=== PATIENT | female | born 1965 ===

== ENCOUNTER 2016-08-12 13:36 | Emergency (ER) | payer MEDICAID ==
[2016-08-12 13:36] VITALS: BMI 35.2
[2016-08-12] MEDS ORDERED: Albuterol-Ipratrop 3 mg / 0.5 (3 ml) UD IH STA (14:03)
--- NOTE | 2016-08-12 14:10 | ED PDOC ---
Arrival/HPI - General Chief Complaint: Cough, Cold, Congestion Time Seen by Provider: 08/12/16 13:56 Historian: Patient - History of Present Illness Narrative History of Present Illness (Text): 08/12/16 14:07 Patient is a smoker, complains of 2 day history of dry cough, fever, chills, body aches. Otherwise: (-) chills, (-) chest pain, (-) dyspnea, (-) hemoptysis , (-) upper back pain, (-) travel, (-) recent prolonged immobility. ZACHARY Murguia Past Medical History - Provider Review Nursing Documentation Reviewed: Yes - Past History Past History: No Previous - Infectious Disease Hx of Infectious Diseases: None - Tetanus Immunization Tetanus Immunization: Unknown - Cardiac Hx Cardiac Disorders: No - Pulmonary Hx Pneumonia: Yes Other/Comment: Smoker - Neurological Hx Neurological Disorder: No - HEENT Hx HEENT Disorder: No - Renal Hx Renal Disorder: No - Endocrine/Metabolic Hx Endocrine Disorders: Yes Hx Systemic Lupus Erythematosus: Yes - Hematological/Oncological Hx Blood Disorders: Yes Hx Cancer: Yes (ovarian) - Integumentary Hx Dermatological Disorder: No - Musculoskeletal/Rheumatological Hx Musculoskeletal Disorders: Yes Hx Back Pain: Yes - Gastrointestinal Hx Gastrointestinal Disorders: No Other/Comment: GALLBLADDER SX 10 YRS - Genitourinary/Gynecological Hx Genitourinary Disorders: No Other/Comment: Ovarian CA - Psychiatric Hx Depression: No Hx Substance Use: No - Surgical History Hx Cholecystectomy: Yes Other/Comment: Ovarian Surgery. Bone fusion. Pt with artificial disc. 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 Patient has 4screws/2rods/2plates on back - Anesthesia Hx Anesthesia: No Hx Anesthesia Reactions: No Hx Malignant Hyperthermia: No - Suicidal Assessment Feels Threatened In Home Enviroment: No Family/Social History - Physician Review Nursing Documentation Reviewed: Yes Family/Social History: No Known Family HX Smoking Status: Heavy Smoker > 10 Cigarettes Daily Hx Alcohol Use: No Hx Substance Use: No Hx Substance Use Treatment: No Allergies/Home Meds Allergies/Adverse Reactions: Allergies penicillin V Allergy (Verified 07/20/16 17:46) RASH Review of Systems - Review of Systems Constitutional: Normal, Fatigue, Fevers. absent: Weight Change ENT: Normal. absent: Hearing Changes, Tinnitus Respiratory: Normal, Cough. absent: SOB, Sputum Cardiovascular: Normal. absent: Chest Pain, Palpitations Skin: Normal. absent: Rash, Pruritis, Skin Lesions Physical Exam - Physical Exam Narrative Physical Exam (Text): 08/12/16 14:08 GENERAL APPEARANCE: Patient is awake, alert, oriented x 3, in no acute distress. SKIN: Warm, dry; (-) cyanosis. EYES: (-) conjunctival pallor. ENMT: Mucous membranes moist. Airway patent: (-) stridor. Pharynx: (-) swelling, (-) erythema, (-) exudate. NECK: (-) tenderness, (-) stiffness, (-) lymphadenopathy. CHEST AND RESPIRATORY: (-) rhonchi, (-) rales, (-) wheezes, (-) pleural rub; mild decrease in breath sounds bilaterally. HEART AND CARDIOVASCULAR: (-) irregularity; (-) murmur, (-) gallop. ABDOMEN AND GI: Soft; (-) tenderness. EXTREMITIES: (-) deformity; (-) edema. NEURO AND PSYCH: Mental status as above. Cranial nerves grossly intact; strength symmetric. Vital Signs Temp Pulse Resp BP Pulse Ox 08/12/16 16:01 99.4 F 16 99 08/12/16 15:32 99.4 F 106 H 20 107/76 99 08/12/16 13:45 99.3 F 110 H 18 109/69 98 Medical Decision Making ED Course and Treatment: 08/12/16 14:09 50 yo F smoker, presents to the emergency room complaining of 2 day history of fever, chills, bodyaches, cough. To rule out pneumonia, consider bronchitis versus flu. Chest x-ray ordered. Patient given 1 DuoNeb, motrin po and guaifenesin po. CXR : NAD, as read by PA On reevaluation, patient reports improvement of her cough and her breathing. On exam, lungs are clear to auscultation, no rhonchi, no wheezing, breath sounds are equal bilaterally. Based on history, exam and diagnostic results plan will be for patient follow- up with PMD. Prescription provided. Patient states she fully agrees with and understands discharge instructions. States that she agrees with the plan and disposition. Verbalized and repeated discharge instructions and plan. I have given the patient opportunity to ask any additional questions. Follow up with primary care physician in 1-2 days without fail. Advised to take medication as prescribed, and to take her nebulized treatment every 4-6 hours as needed for cough. Return to the emergency room at any time for any new or worsening symptoms. - RAD Interpretation Radiology Orders: 08/12/16 14:03 CHEST TWO VIEWS (PA/LAT) [RAD] Stat - Medication Orders Current Medication Orders: Discontinued Medications Albuterol/Ipratropium (Duoneb 3 Mg/0.5 Mg (3 Ml) Ud) 3 ml IH STAT STA Stop: 08/12/16 14:04 Last Admin: 08/12/16 14:22 Dose: 3 ML Guaifenesin (Robitussin) 400 mg PO ONCE ONE Stop: 08/12/16 15:31 Last Admin: 08/12/16 15:43 Dose: 400 MG Ibuprofen (Motrin Tab) 600 mg PO STAT STA Stop: 08/12/16 15:31 Last Admin: 08/12/16 15:43 Dose: 600 MG MAR Pain/Vitals Document 08/12/16 15:43 [email or web address] (Rec: 08/12/16 15:43 [email or web address] Pain Reassessment Is This A Pain ReAssessment? No Sleep Is patient sleeping during reassessment? No Presence of Pain Presence of Pain Yes Pain Scale Used Pain Scale Used Numeric Location Pain Location Body Vocational Ed Instructor Description Constant Intensity 4 Scale Used Numeric Pain Behavior Facial Grimacing Aggravating Factors Changing Position Aggravating Factors Changing Position - PA / FUEL MANAGER / Resident Statement MD/DO has reviewed & agrees with the documentation as recorded. Disposition/Present on Arrival - Present on Arrival Any Indicators Present on Arrival: No History of DVT/PE: No History of Uncontrolled Diabetes: No Urinary Catheter: No History of Decub. Ulcer: No History Surgical Site Infection Following: None - Disposition Have Diagnosis and Disposition been Completed?: Yes Diagnosis: Cough, Viral respiratory illness Disposition: HOME/ ROUTINE Disposition Time: 15:30 Patient Plan: Discharge Patient Problems: Current Active Problems Problem Status Diagnosed Leukocytosis Acute Pharyngitis Acute Throat pain Acute Trismus Acute Condition: GOOD Discharge Instructions (ExitCare): Influenza (ED), Viral Syndrome (ED) Print Language: THAI Additional Instructions: Thank you for letting us take care of you today. You were treated for cough, viral illness, consider flu. The emergency medical care you received today was directed at your acute symptoms. If you were prescribed any medication, please fill it and take as directed. It may take several days for your symptoms to resolve. Return to the Emergency Department if your symptoms worsen, do not improve, or if you have any other problems. Please contact your doctor in 2 days for re-evaluation and follow up. Bring any paperwork you were given at discharge with you along with any medications you are taking to your follow up visit. Our treatment cannot replace ongoing medical care by a primary care provider (PCP) outside of the emergency department. Thank you for allowing the [facility] team to be part of your care today. Prescriptions: Guaifenesin [Cough Control] 400 mg PO Q6 #400 liquid Ibuprofen [Motrin] 600 mg PO Q6H #20 tab Oseltamivir Phosphate [Tamiflu] 75 mg PO BID #10 capsule Referrals: Catia Murguia MD [Primary Care Provider] - Follow up with primary
[2016-08-12] MEDS ORDERED: guaiFENesin 200 mg/10 ml Syrup UD PO ONE (15:30)
--- NOTE | 2016-08-12 15:31 | RAD ---
HISTORY: cough COMPARISON: Chest x-ray performed 12/03/15 TECHNIQUE: Chest PA and lateral FINDINGS: Examination limited by habitus and hypoinflation. LUNGS: No focal consolidation. Please note that chest x-ray has limited sensitivity for the detection of pulmonary masses. PLEURA: No significant pleural effusion identified. No definite pneumothorax . CARDIOVASCULAR: Heart size appears within normal limits. OSSEOUS STRUCTURES: Degenerative changes of the spine. VISUALIZED UPPER ABDOMEN: Unremarkable. OTHER FINDINGS: None. IMPRESSION: No focal consolidation, significant pleural effusion, or definite pneumothorax identified.
[2016-08-12 15:32] VITALS: BP 107/76; PULSE 106; TEMP 99.4; O2SAT 99
[2016-08-12 16:02] VITALS: RESP 16
== END 2016-08-12 16:02 | disposition home or self-care (01) ==
LOC: ED 13:36
DX: B34.9 Viral infection, unspecified (principal); R05 Cough; Z87.01 Personal history of pneumonia (recurrent)

== ENCOUNTER 2016-10-19 13:25 | Inpatient (IN) | payer MEDICAID ==
--- NOTE | 2016-10-19 13:43 | EDPD ---
HPI Stroke - General Time Seen by Provider: 10/19/16 13:38 Historian: Patient - History of Present Illness Narrative History of Present Illness (Free Text): 10/19/16 13:24 A 51 year old female presents to the emergency department complaining of slurred speech and left sided weakness. Patient report last night of 2099 she went to bed with a headache. She states she woke up this morning with the same headache along with heaviness to the left side of the face, slurred speech and weakness/numbness to the left upper extremity. Patient says she feels like she need to cough up something but is unable too. Patient notes some left eye blurring but denies any fever, cough, nausea, vomiting or any other complaints at this time. PMD: Dr. Murguia Date:: 10/19/16 rTPA Inclusion/Exclusion - Refusal of Treatment Patient Refused Treatment: No - Inclusion Criteria for Altepase Patient is 18 years or Older: Yes The Clinical Diagnosis of Ischemic Stroke That is Causing a Potentially Disabling Neurological Deficit: Yes Time of Onset is Well Established to be Less Than 270 Minute Before Treatment Would Begin: No Risk/Benefit Discussed With Patient/Family Member Present: Yes Past Medical History - Provider Review Nursing Documentation Reviewed: Yes - Past History Past History: No Previous - Infectious Disease Hx of Infectious Diseases: None - Tetanus Immunization Tetanus Immunization: Unknown - Cardiac Hx Cardiac Disorders: No - Pulmonary Hx Pneumonia: Yes Other/Comment: Smoker - Neurological Hx Neurological Disorder: No - HEENT Hx HEENT Disorder: No - Renal Hx Renal Disorder: No - Endocrine/Metabolic Hx Endocrine Disorders: Yes Hx Systemic Lupus Erythematosus: Yes - Hematological/Oncological Hx Blood Disorders: Yes Hx Cancer: Yes (ovarian) - Integumentary Hx Dermatological Disorder: No - Musculoskeletal/Rheumatological Hx Musculoskeletal Disorders: Yes Hx Back Pain: Yes - Gastrointestinal Hx Gastrointestinal Disorders: No Other/Comment: GALLBLADDER SX 10 YRS - Genitourinary/Gynecological Hx Genitourinary Disorders: No Other/Comment: Ovarian CA - Psychiatric Hx Depression: No Hx Substance Use: No - Surgical History Hx Cholecystectomy: Yes Other/Comment: Ovarian Surgery. Bone fusion. Pt with artificial disc. 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 Patient has 4screws/2rods/2plates on back - Anesthesia Hx Anesthesia: No Hx Anesthesia Reactions: No Hx Malignant Hyperthermia: No - Suicidal Assessment Feels Threatened In Home Enviroment: No Family/Social History - Family/Social History Family History: Non-Contributory Allergies/Home Meds Allergies/Adverse Reactions: Allergies penicillin V Allergy (Verified 10/19/16 14:05) RASH Home Medications: Home Meds Medication Instructions Recorded Confirmed oxyCODONE/Acetaminophen [Percocet 1 tab PO PRN PRN 10/19/16 10/19/16 5/325 mg Tab] Review of Systems - Physician Review All systems were reviewed & negative as marked: Yes - Review of Systems Constitutional: absent: Fevers Eyes: Vision Changes Respiratory: absent: SOB, Cough Cardiovascular: absent: Chest Pain Neurological: Headache, Focal Weakness, Speech Changes ED Stroke Physical Exam Vital Signs Reviewed: Yes Temperature: Afebrile Blood Pressure: Normal Pulse: Regular Respiratory Rate: Normal Appearance: Positive for: Well-Appearing, Non-Toxic, Comfortable Pain Distress: None Mental Status: Positive for: Alert and Oriented X 3 - Systems Exam Head: Present: Atraumatic, Normocephalic, Other (stye to the left eye with no tenderness or discharge) Pupils: Present: PERRL Extroacular Muscles: Present: EOMI Conjunctiva: Present: Normal Mouth: Present: Moist Mucous Membranes Neck: Present: Normal Range of Motion Respiratory/Chest: Present: Clear to Auscultation, Good Air Exchange. No: Respiratory Distress, Accessory Muscle Use Cardiovascular: Present: Regular Rate and Rhythm, Normal S1, S2. No: Murmurs Abdomen: Present: Normal Bowel Sounds. No: Tenderness, Distention, Peritoneal Signs Upper Extremity: Present: Normal Inspection. No: Cyanosis, Edema Lower Extremity: Present: Normal Inspection. No: Edema Neurologic: Present: GCS=15, CN II-XII Intact, Motor Func Grossly Intact, Normal Cerebellar Funct, Norm Deep Tendon Reflexes, Memory Normal, Pronator Drift (left upper and lower. 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 No: Speech Normal ( slurred speech), Normal Sensory Function (left sided numbness), Dysmetric Finger to Nose Skin: Present: Warm, Dry, Normal Color. No: Rashes Psychiatric: Present: Alert, Oriented x 3, Normal Insight, Normal Concentration Medical Decision Making ED Course and Treatment: 10/19/16 13:24 Impression: A 51 year old female with headache, left sided weakness/numbness, and slurred speech. Differential Diagnosis include but are not limited to: CVA Plan: -- EKG -- Head CT -- Chest X-ray -- Labs -- Reassess and disposition Prior Visits: Notes and results from previous visits were reviewed. The david last presented to the emergency department on 08/12/16 for evaluation of a dry cough with fever, chills and body aches. Progress Notes: EKG: Ordered, reviewed, and independently interpreted the EKG. Rate : 81 BPM Rhythm : NSR Interpretation : No ST-segment elevations or depressions, no T-wave inversions, normal intervals. Code stroke called by Triage nurse upon arrival of the patient. Case discussed with Dr. Ingrid Hopkins, who is aware and agrees with the plan. 10/19/16 13:[address]: Creator : Andrés Bella MD COMPARISON: 05/27/2015 FINDINGS: HEMORRHAGE: No intracranial hemorrhage. BRAIN: No mass effect or edema. No atrophy or chronic microvascular ischemic changes. VENTRICLES: Unremarkable. No hydrocephalus. CALVARIUM: Unremarkable. PARANASAL SINUSES: Unremarkable as visualized. No significant inflammatory changes. MASTOID AIR CELLS: Unremarkable as visualized. No inflammatory changes. OTHER FINDINGS: None. IMPRESSION: Normal CT of the Head. 10/19/16 14:25 Chest X-ray: Creator : Andrés Bella MD COMPARISON: 08/12/2016 FINDINGS: LUNGS: Clear. PLEURA: No pneumothorax or pleural fluid seen. CARDIOVASCULAR: Normal. OSSEOUS STRUCTURES: No significant abnormalities. VISUALIZED UPPER ABDOMEN: Normal. OTHER FINDINGS: None. IMPRESSION: No active disease. 10/19/16 15:33 Case discussed at length with patient and patient's mom. Patient did not want to stay in hospital but now is agreeing to stay. She is also now agreeing to Aspirin OK. I discussed case with Dr. Loredo who will admit this patient. - Critical Care Critical Care Minutes: 30 minutes - Lab Interpretations I have reviewed the lab results: Yes - RAD Interpretation Radiology Orders: 10/19/16 13:40 HEAD W/O (CODE STROKE) [CT] Stat 10/19/16 13:41 CHEST PORTABLE [RAD] Stat - Scribe Statement The provider has reviewed the documentation as recorded by the Mioibjerad Russell Provider Scribe Attestation: All medical record entries made by the Scribe were at my direction and personally dictated by me. I have reviewed the chart and agree that the record accurately reflects my personal performance of the history, physical exam, medical decision making, and the department course for this patient. I have also personally directed, reviewed, and agree with the discharge instructions and disposition. NIHSS Scale ([place]) Time Performed: 13:38 - How Severe is the Stoke Baseline Level of Consciousness: 0=Alert LOC to Questions: 0=Both comments correct LOC to commands: 0=Obeys both correctly Best Gaze: 0=Normal Visual: 1=Partial hemianopia Facial: 2=Partial (lower face paralysis) Motor Arm - Left: 1=Drift noted before 10 sec Motor Arm - Right: 0=No drift Motor Leg - Left: 1=Drift before 5 sec Motor Leg - Right: 0=No drift Limb Ataxia: 1=Present Upper or Lower Sensory: 1=Mild to moderate loss Best Language: 0=No aphasia Dysarthia: 1=Mild to moderate slurring Extinction & Inattention (Neglect): 0=Normal, no object Score: 8 Risk Level: Mod Stroke Risk Disposition/Present on Arrival - Present on Arrival Any Indicators Present on Arrival: No History of DVT/PE: No History of Uncontrolled Diabetes: No Urinary Catheter: No History Surgical Site Infection Following: None - Disposition Have Diagnosis and Disposition been Completed?: Yes Diagnosis: CVA (cerebral vascular accident) Disposition: HOSPITALIZED Disposition Time: 15:34 Patient Plan: Admission Condition: FAIR Referrals: Catia Murguia MD [Primary Care Provider] - Follow up with primary
--- NOTE | 2016-10-19 13:55 | CT ---
PROCEDURE: CT HEAD WITHOUT CONTRAST. HISTORY: slurred speech; left sided weakness COMPARISON: 05/27/2015 TECHNIQUE: Axial computed tomography images were obtained through the head/brain without intravenous contrast. Radiation dose: Total exam DLP = 688 mGy-cm. This CT exam was performed using one or more of the following dose reduction techniques: Automated exposure control, adjustment of the mA and/or kV according to patient size, and/or use of iterative reconstruction technique. FINDINGS: HEMORRHAGE: No intracranial hemorrhage. BRAIN: No mass effect or edema. No atrophy or chronic microvascular ischemic changes. VENTRICLES: Unremarkable. No hydrocephalus. CALVARIUM: Unremarkable. PARANASAL SINUSES: Unremarkable as visualized. No significant inflammatory changes. MASTOID AIR CELLS: Unremarkable as visualized. No inflammatory changes. OTHER FINDINGS: None. IMPRESSION: Normal CT of the Head.
--- NOTE | 2016-10-19 14:25 | RAD ---
PROCEDURE: CHEST RADIOGRAPH, 1 VIEW HISTORY: code stroke COMPARISON: 08/12/2016 FINDINGS: LUNGS: Clear. PLEURA: No pneumothorax or pleural fluid seen. CARDIOVASCULAR: Normal. OSSEOUS STRUCTURES: No significant abnormalities. VISUALIZED UPPER ABDOMEN: Normal. OTHER FINDINGS: None. IMPRESSION: No active disease.
[2016-10-19 14:41] LABS: ADD MANUAL DIFF? NO
[2016-10-19 14:44] LABS: BASO # 0.02 K/mm3 (0.0-2.0); BASO % 0.2 % (0.0-3.0); EOS # 0.1 (0.0-0.7); EOS % 0.7 % (1.5-5.0); GRAN # 8.41 (1.4-6.5); GRAN % 70.6 % (50.0-68.0); HEMATOCRIT 37.9 % (36.0-48.0); LYMPH # 2.7 (1.2-3.4); MEAN CELL VOLUME 89.4 fL (80.0-105.0); MEAN CORPUSCULAR HEMOGLOBIN 30.9 pg (25.0-35.0); MEAN CORPUSCULAR HGB CONC 34.6 g/dl (31.0-37.0); MONO # 0.7 (0.1-0.6); MONO % 5.5 % (1.0-6.0); PLATELET COUNT 239 10^3/uL (120.0-450.0); RED CELL DISTRIBUTION WIDTH 15.1 % (11.5-14.5); WHITE BLOOD COUNT 11.9 10^3/ul (4.5-11.0)
[2016-10-19 14:56] LABS: INR 1.03 (0.93-1.08)
[2016-10-19 14:57] LABS: ALB/GLOB RATIO 1.2 (1.1-1.8); ALKALINE PHOSPHATASE 114 U/L (38-133); ALT/SGPT 86 U/L (7-56); AST/SGOT 39 U/L (15-39); BILIRUBIN,TOTAL 0.4 mg/dL (0.2-1.3); BLOOD UREA NITROGEN 14 mg/dL (7-21); CALCIUM 9.9 mg/dL (8.4-10.5); CARBON DIOXIDE 20 mmol/L (21-33); CHOLESTEROL 180 mg/dL (130-200); GFR AFRICAN-AMERICAN > 60; GLUCOSE,RANDOM 86 mg/dL (70-110); POTASSIUM 3.6 mmol/L (3.6-5.0); SODIUM 137 mmol/L (132-148); TOTAL PROTEIN 7.7 g/dL (5.8-8.3)
[2016-10-19 15:08] LABS: CHLORIDE 107 mmol/L (98-107)
[2016-10-19 15:11] LABS: TROPONIN I < 0.01 ng/mL
[2016-10-19] MEDS ORDERED: Morphine 2 mg/ml ISec IVP STA (15:34)
[2016-10-19] MEDS: Sodium Chloride 0.9% 1,000 ML IV SCH (16:27)
--- NOTE | 2016-10-19 16:32 | CP.PCM.HP ---
<Margoth Omer - Last Filed: 10/19/16 16:50> History of Present Illness - History of Present Illness History of Present Illness: 51 F with PMHx of ovarian cancer s/p radiation, SLE, S1 tumor presenting with complains of headache x2 days and left sided numbness and weakness x1day. Pt states that roughly 2 days ago, pt began experiencing a diffuse headache, slightly worse on the left side for 2 days. Pt denied any trauma to the head. Pt denied any triggers that spurred the headache. Pt then began experiencing worsening symptoms today when pt woke up with left sided weakness and numbness. Her entire left side felt weak at which point pt called her mother and was assisted to [facility]. Pt was seen and examined at bedside. Pt has complaints of headache, diffues left-sided weakness, numbness, and pain. Pt also has complaints of left eye blurry vision and absent left lateral vision. Pt denied fever, chills, chest pains, sob, abdominal pain, n/v/d/c. PMHx: as above PSHx: Lumbar fusion, left ovarian ca removal, cholecystectomy, SHx: + tobacco 1/2 ppd, denied etoh, denied illicit drugs Famhx: gma: htn stroke, mother CLL Meds: Percocet and flexeril Allergies: PCN PMD: Leonides Murguia Present on Admission - Present on Admission Any Indicators Present on Admission: No Review of Systems - Review of Systems Review of Systems: as per HPI otherwise negative Past Patient History - Infectious Disease Hx of Infectious Diseases: None - Tetanus Immunizations Tetanus Immunization: Unknown - Past Social History Smoking Status: Heavy Smoker > 10 Cigarettes Daily - CARDIAC Hx Cardiac Disorders: No - PULMONARY Hx Pneumonia: Yes Other/Comment: Smoker - NEUROLOGICAL Hx Neurological Disorder: No - HEENT Hx HEENT Problems: No - RENAL Hx Chronic Kidney Disease: No - ENDOCRINE/METABOLIC Hx Endocrine Disorders: Yes Hx Systemic Lupus Erythematosus: Yes - HEMATOLOGICAL/ONCOLOGICAL Hx Blood Disorders: Yes Hx Cancer: Yes (ovarian) - INTEGUMENTARY Hx Dermatological Problems: No - MUSCULOSKELETAL/RHEUMATOLOGICAL Hx Musculoskeletal Disorders: Yes Hx Back Pain: Yes - GASTROINTESTINAL Hx Gastrointestinal Disorders: No Other/Comment: GALLBLADDER SX 10 YRS - GENITOURINARY/GYNECOLOGICAL Hx Genitourinary Disorders: No Other/Comment: Ovarian CA - PSYCHIATRIC Hx Depression: No Hx Substance Use: No - SURGICAL HISTORY Hx Cholecystectomy: Yes Other/Comment: Ovarian Surgery. Bone fusion. Pt with artificial disc. 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 Patient has 4screws/2rods/2plates on back - ANESTHESIA Hx Anesthesia: No Hx Anesthesia Reactions: No Hx Malignant Hyperthermia: No Meds Allergies/Adverse Reactions: Allergies Allergy/AdvReac Type Severity Reaction Status Date / Time penicillin V Allergy RASH Verified 10/19/16 20:11 Physical Exam - Constitutional Appears: No Acute Distress - Head Exam Head Exam: ATRAUMATIC, NORMAL INSPECTION, NORMOCEPHALIC - Eye Exam Eye Exam: EOMI, Normal appearance, PERRL Pupil Exam: NORMAL ACCOMODATION, PERRL Additional comments: Diminished Left lateral gaze - ENT Exam ENT Exam: Mucous Membranes Moist, Normal Exam - Neck Exam Neck exam: Positive for: Normal Inspection - Respiratory Exam Respiratory Exam: Clear to Auscultation Bilateral, NORMAL BREATHING PATTERN - Cardiovascular Exam Cardiovascular Exam: REGULAR RHYTHM - GI/Abdominal Exam GI & Abdominal Exam: Normal Bowel Sounds, Soft. absent: Tenderness - Extremities Exam Extremities exam: Positive for: normal inspection - Back Exam Back exam: NORMAL INSPECTION - Neurological Exam Neurological exam: Alert, Motor Sensory Deficit, Oriented x3 - Expanded Neurological Exam Expanded Cranial nerves: EOM's Intact: Normal, Facial Sensation: Abnormal Left, Nystagmus : Normal, Tongue Deviation: Normal Upper motor neuron: Pronator Drift: Abnormal Left Sensory exam: Lower Extremity 2 Point Discrimination: Abnormal Left, Lower Extremity Light Touch: Abnormal Left, Upper Extremity 2 Point Discrimination: Abnormal Left, Upper Extremity Light Touch: Abnormal Left Neuro motor strength exam: Left Upper Extremity: 3, Right Upper Extremity: 5, Left Lower Extremity: 2/1, Right Lower Extremity: 3 Coma Scale Eye Opening: SPONTANEOUS Coma Scale Motor Response: OBEYS COMMANDS Coma Scale Verbal: Oriented Coma Scale Total: 15 - Psychiatric Exam Psychiatric exam: Normal Affect, Normal Mood - Skin Skin Exam: Dry, Intact, Normal Color, Warm Results - Vital Signs Recent Vital Signs: Last Vital Signs Temp 98.1 F 10/19/16 13:58 Pulse 79 10/19/16 16:00 Resp 18 10/19/16 16:00 BP 117/82 10/19/16 16:00 Pulse Ox 100 10/19/16 16:00 - Labs Result Diagrams: 10/19/16 14:30 10/19/16 14:30 Labs: Laboratory Results - last 24 hr 10/19/16 10/19/16 10/19/16 13:37 14:30 14:30 WBC 11.9 H RBC 4.24 Hgb 13.1 Hct 37.9 MCV 89.4 MCH 30.9 MCHC 34.6 RDW 15.1 H Plt Count 239 MPV 10.0 Gran % 70.6 H Lymph % (Auto) 23.0 [place] % (Auto) 5.5 Eos % (Auto) 0.7 L Baso % (Auto) 0.2 Gran # 8.41 H Lymph # 2.7 [place] # 0.7 H Eos # 0.1 Baso # 0.02 PT 11.1 INR 1.03 APTT 31.0 H Sodium Potassium Chloride Carbon Dioxide Anion Gap BUN Creatinine Est GFR ( Amer) Est GFR (Non-Af Amer) POC Glucose (mg/dL) 79 Random Glucose Calcium Total Bilirubin AST ALT Alkaline Phosphatase Troponin I Total Protein Albumin Globulin Albumin/Globulin Ratio Triglycerides Cholesterol LDL Cholesterol Direct HDL Cholesterol BBK History Checked 10/19/16 10/19/16 14:30 15:15 WBC RBC Hgb Hct MCV MCH MCHC RDW Plt Count MPV Gran % Lymph % (Auto) [place] % (Auto) Eos % (Auto) Baso % (Auto) Gran # Lymph # [place] # Eos # Baso # PT INR APTT Sodium 137 Potassium 3.6 Chloride 107 Carbon Dioxide 20 L Anion Gap 14 BUN 14 Creatinine 0.8 Est GFR ( Amer) > 60 Est GFR (Non-Af Amer) > 60 POC Glucose (mg/dL) Random Glucose 86 Calcium 9.9 Total Bilirubin 0.4 AST 39 ALT 86 H Alkaline Phosphatase 114 Troponin I < 0.01 Total Protein 7.7 Albumin 4.2 Globulin 3.5 Albumin/Globulin Ratio 1.2 Triglycerides 203 H Cholesterol 180 LDL Cholesterol Direct 121 HDL Cholesterol 40 BBK History Checked Patient has bt Assessment & Plan - Assessment and Plan (Free Text) Assessment: 51 F with PMHx of ovarian cancer s/p radiation, SLE, S1 tumor presenting with complains of headache x2 days and left sided numbness and weakness x1day. Pt states that roughly 2 days ago, pt began experiencing a diffuse headache, slightly worse on the left side for 2 days. Pt admitted to r/o CVA. 1. Left sided weakness/numbness - R/o CVA - CTH negative - FU CTA Head and neck - Asa RC - Lipitor once pass swallow study - No anticoagulation - SCDs - Neurology consulted, Dr. Edin Hopkins - avoid anti-htn, continue to monitor - Swallow study 2. Leukocytosis - WBC mildly elevated - fu cx - CXR without active disease - VSS 3. Headache/ left sided pain/ LBP - Hx of lumbar fusion - morphine 1q4 prn - can resume home meds if pass swallow study 4. Tobacco abuse - conuselled pt on tobacco cessation - nicotine patch offered DVT ppx SCDs Seen reviewed and discussed with attending <Jaya DUNN,Artis - Last Filed: 10/20/16 17:06> Results - Vital Signs Recent Vital Signs: Last Vital Signs Temp 98.5 F 10/20/16 12:00 Pulse 66 10/20/16 12:00 Resp 20 10/20/16 12:00 BP 98/78 L 10/20/16 12:00 Pulse Ox 100 10/19/16 17:00 - Labs Result Diagrams: 10/20/16 06:45 10/20/16 06:45 Labs: Laboratory Results - last 24 hr 10/19/16 10/20/16 10/20/16 16:42 06:30 06:45 WBC 8.7 D RBC 4.05 Hgb 12.2 Hct 36.8 MCV 90.9 MCH 30.1 MCHC 33.2 RDW 15.5 H Plt Count 226 MPV 10.4 Gran % 62.6 Lymph % (Auto) 29.0 [place] % (Auto) 6.8 H Eos % (Auto) 1.5 Baso % (Auto) 0.1 Gran # 5.41 Lymph # 2.5 [place] # 0.6 Eos # 0.1 Baso # 0.01 ESR Sodium Potassium Chloride Carbon Dioxide Anion Gap BUN Creatinine Est GFR ( Amer) Est GFR (Non-Af Amer) Random Glucose Calcium Total Bilirubin AST ALT Alkaline Phosphatase Total Protein Albumin Globulin Albumin/Globulin Ratio Triglycerides 121 Cholesterol 156 LDL Cholesterol Direct 99 HDL Cholesterol 32 Urine Color Yellow Urine Appearance Sl cloudy Urine pH 6.0 Ur Specific [place] 1.020 Urine Protein Trace H Urine Glucose (UA) Negative Urine Ketones Negative Urine Blood Moderate H Urine Nitrate Positive H Urine Bilirubin Negative Urine Urobilinogen 0.2 Ur Leukocyte Esterase Small H Urine RBC 10 - 15 Urine WBC 5 - 10 Ur Epithelial Cells 10 - 12 Urine Bacteria Many 10/20/16 10/20/16 06:45 09:00 WBC RBC Hgb Hct MCV MCH MCHC RDW Plt Count MPV Gran % Lymph % (Auto) [place] % (Auto) Eos % (Auto) Baso % (Auto) Gran # Lymph # [place] # Eos # Baso # ESR 20 Sodium 137 Potassium 3.9 Chloride 110 H Carbon Dioxide 19 L Anion Gap 12 BUN 11 Creatinine 0.8 Est GFR ( Amer) > 60 Est GFR (Non-Af Amer) > 60 Random Glucose 94 Calcium 9.1 Total Bilirubin 0.5 AST 41 H ALT 78 H Alkaline Phosphatase 97 Total Protein 6.9 Albumin 3.6 Globulin 3.3 Albumin/Globulin Ratio 1.1 Triglycerides Cholesterol LDL Cholesterol Direct HDL Cholesterol Urine Color Urine Appearance Urine pH Ur Specific [place] Urine Protein Urine Glucose (UA) Urine Ketones Urine Blood Urine Nitrate Urine Bilirubin Urine Urobilinogen Ur Leukocyte Esterase Urine RBC Urine WBC Ur Epithelial Cells Urine Bacteria Attending/Attestation - Attestation I have personally seen and examined this patient.: Yes I have fully participated in the care of the patient.: Yes I have reviewed all pertinent clinical information: Yes Notes (Text): Patient was seen and examined with medical examiner .Agreed with resident assessment and plan. 51 F with PMH of ovarian cancer , SLE ?, S1 tumor, SP back surgery presenting with complains of headache started 2 days back , followed by left sided numbness and weakness of left upper and lower extremities, more in arm than leg , also gave history of facial dropping and visual lose in left eye, CT head is negative.Patient symptoms are suggestive of CVA, does has focal motor weakness in left upper extremity and decrease sensation on left upper and lower extremity.Patient will be admitted to the hospital, will monitor Neuro check, will get CT angiography of head and neck, will get 2D echo and neurology evaluation. Management plan was discussed in detail with patient Education was provided.
[2016-10-19] MEDS: Morphine 2 mg/ml ISec IVP PRN ×2 (17:09→21:06)
[2016-10-19 17:25] LABS: URINE BILIRUBIN NEGATIVE (NEGATIVE); URINE BLOOD MODERATE (NEGATIVE); URINE GLUCOSE (UA) NEGATIVE (NEGATIVE); URINE KETONE NEGATIVE (NEGATIVE); URINE LEUKOCYTE ESTERASE SMALL Leu/uL (NEGATIVE); URINE PROTEIN TRACE mg/dL (<30 mg/dL); URINE UROBILINOGEN 0.2 E.U./dL (<1 E.U./dL)
[2016-10-19 17:31] LABS: URINE APPEARANCE SL CLOUDY (CLEAR); URINE COLOR YELLOW (YELLOW)
[2016-10-19 17:45] LABS: URINE BACTERIA MANY (NEG)
--- NOTE | 2016-10-19 18:31 | CT ---
PROCEDURE: CT Angiography of the neck with contrast HISTORY: ?stroke COMPARISON: None available. TECHNIQUE: Contiguous axial images of the neck were obtained from the level of the skull-base to the superior mediastinum in the arteriographic phase of enhancement. Coronal and sagittal reformats or also generated. IV contrast dose: 147 mL of Omnipaque 350 Radiation Dose - DLP: 528.56 mGy-cm This CT exam was performed using one or more of the following dose reduction techniques: Automated exposure control, adjustment of the mA and/or kV according to patient size, and/or use of iterative reconstruction technique. FINDINGS: RIGHT CAROTID ARTERIES: Common Carotid Artery: Normal. Carotid Bifurcation: Normal. Internal Carotid Artery:Normal. External Carotid Artery (proximal branches): Normal. LEFT CAROTID ARTERIES: Common Carotid Artery: Normal. Carotid Bifurcation: Normal. Internal Carotid Artery:Normal. External Carotid Artery (proximal branches): Normal. VERTEBRAL ARTERIES: Right Vertebral Artery: Normal. Left Vertebral Artery: Normal. OTHER FINDINGS: None. IMPRESSION: No evidence of focal stenosis or occlusion in the carotid arteries at the neck. The vertebral arteries and the basilar artery are patent.
--- NOTE | 2016-10-19 19:12 | CON ---
DATE: 10/19/2016 HISTORY OF PRESENT ILLNESS: This is a 51-year-old female who came to the hospital with slurring of s peech and also with headache and woke up in the morning with the same headache and heaviness to the l eft side of the face. She also noted some blurring of vision in the left eye. Denies any nausea, vo miting. PAST MEDICAL HISTORY: As above. PAST SURGICAL HISTORY: Cholecystectomy. ALLERGIES: PENICILLIN. HOME MEDICATIONS: Percocet. REVIEW OF SYSTEMS: A 10-point review of system was negative. PHYSICAL EXAMINATION: HEENT: Normocephalic, atraumatic. NECK: Supple. NEUROLOGIC: Alert, awake, orientated x 3. No aphasia. Cranial nerves II through XII were tested. Pupils reactive. EOM intact. Visual marroquin full. No facial asymmetry. Mild left-sided weakness wa s noted. Speech is better on examination. IMPRESSION: Possibly transient ischemic attack in the right hemisphere. CAT scan of the head was ne gative and CT angio was also negative. PLAN: Continue present management. Will follow up and do carotid Doppler. Edin Hopkins MD cc: [id number] TT: 10/19/2016 19:11:30 Confirmation # [id number] Dictation # [id number] alexa
[2016-10-19 21:41] VITALS: BMI 42.7
[2016-10-19] MEDS ORDERED: Pneumococcal 23-Valent Vaccine IM ONE (21:41)
[2016-10-20] MEDS: Morphine 2 mg/ml ISec IVP PRN ×2 (01:43→05:43)
[2016-10-20] MEDS: Sodium Chloride 0.9% 1,000 ML IV SCH ×2 (04:24→13:14)
[2016-10-20 07:01] LABS: CHOLESTEROL 156 mg/dL (130-200)
[2016-10-20 07:32] LABS: ADD MANUAL DIFF? NO
[2016-10-20 07:35] LABS: BASO # 0.01 K/mm3 (0.0-2.0); BASO % 0.1 % (0.0-3.0); EOS # 0.1 (0.0-0.7); EOS % 1.5 % (1.5-5.0); GRAN # 5.41 (1.4-6.5); GRAN % 62.6 % (50.0-68.0); HEMATOCRIT 36.8 % (36.0-48.0); LYMPH # 2.5 (1.2-3.4); MEAN CELL VOLUME 90.9 fL (80.0-105.0); MEAN CORPUSCULAR HEMOGLOBIN 30.1 pg (25.0-35.0); MEAN CORPUSCULAR HGB CONC 33.2 g/dl (31.0-37.0); MEAN PLATELET VOLUME 10.4 fl (7.0-11.0); MONO # 0.6 (0.1-0.6); MONO % 6.8 % (1.0-6.0); PLATELET COUNT 226 10^3/uL (120.0-450.0); RED CELL DISTRIBUTION WIDTH 15.5 % (11.5-14.5); WHITE BLOOD COUNT 8.7 10^3/ul (4.5-11.0)
[2016-10-20 07:43] LABS: ALB/GLOB RATIO 1.1 (1.1-1.8); ALKALINE PHOSPHATASE 97 U/L (38-133); ALT/SGPT 78 U/L (7-56); AST/SGOT 41 U/L (15-39); BILIRUBIN,TOTAL 0.5 mg/dL (0.2-1.3); BLOOD UREA NITROGEN 11 mg/dL (7-21); CALCIUM 9.1 mg/dL (8.4-10.5); CARBON DIOXIDE 19 mmol/L (21-33); CHLORIDE 110 mmol/L (98-107); GFR AFRICAN-AMERICAN > 60; GLUCOSE,RANDOM 94 mg/dL (70-110); POTASSIUM 3.9 mmol/L (3.6-5.0); SODIUM 137 mmol/L (132-148); TOTAL PROTEIN 6.9 g/dL (5.8-8.3)
[2016-10-20] MEDS ORDERED: Gadodiamide 287 MG/ML VIAL (20ML) IV ONE (08:26)
--- NOTE | 2016-10-20 09:24 | US ---
PROCEDURE: Bilateral carotid artery duplex ultrasound HISTORY: Carotid stenosis PHYSICIAN(S): Alexx Manzano MD. TECHNIQUE: Duplex sonography and color-flow Doppler were used to evaluate the carotid bifurcations and limited segments of the vertebral arteries bilaterally. FINDINGS: There is mild smooth heterogeneous plaque noted at the carotid bifurcations bilaterally. The peak systolic velocity in the proximal right internal carotid artery is 79 cm/sec. This corresponds to a 0-19 percent proximal right ICA stenosis. Normal systolic velocities are noted in the proximal right external carotid artery. There is antegrade flow in the right vertebral artery. The peak systolic velocity in the proximal left internal carotid artery is 84 cm/sec. This corresponds to a 0-19 percent proximal left ICA stenosis. Normal systolic velocities are noted in the proximal left external carotid artery. There is antegrade flow in the left vertebral artery. IMPRESSION: 1. Bilateral 0-19 percent proximal ICA stenoses. 2. Antegrade flow in both vertebral arteries.
--- NOTE | 2016-10-20 10:11 | MRI ---
PROCEDURE: MRI BRAIN WITH AND WITHOUT CONTRAST HISTORY: cva COMPARISON: None. TECHNIQUE: Multiplanar, multisequence MR images of the brain were obtained with and without intravenous contrast enhancement. 20 cc of Omniscan FINDINGS: HEMORRHAGE: None DWI: No evidence of an acute or early subacute infarction. BRAIN PARENCHYMA: No mass,mass effect or edema. No atrophy or chronic microvascular ischemic changes. ENHANCEMENT: No abnormal intracranial enhancement. VENTRICLES: Unremarkable. No hydrocephalus. CRANIUM: Unremarkable. ORBITS: Grossly unremarkable. PARANASAL SINUSES/MASTOIDS: Clear VASCULAR SYSTEM: Skull base flow voids intact. OTHER FINDINGS: There is expansion of the sella consistent with a partially empty sella. This is a normal anatomic variant.. IMPRESSION: No acute findings
[2016-10-20] MEDS: levoFLOXacin 500 mg in D5W 500 MG/100 ML BAG IVPB SCH (10:32)
[2016-10-20] MEDS ORDERED: Oxycodone/Acetaminophen 5/325 mg Tab PO PRN (13:12)
--- NOTE | 2016-10-20 13:46 | CP.PCM.PN ---
<Margoth Omer - Last Filed: 10/20/16 13:50> Subjective - Date & Time of Evaluation Date of Evaluation: 10/20/16 Time of Evaluation: 09:00 - Subjective Subjective: Pt was seen and examined at bedside. Pt is feeling much improved today. Pt states that she has gained some strength on her left side, however is still experiencing mild pain and numbness and tingling. Pt also states that her headache is almost gone. Pt still has left visual deficits. As per nursing staff , no acute or adverse events overnight. Pt denied fever, chills, sob, chest pains, abdominal pains, n/v/d/c or urinary symptoms. Pt is tolerating bite size diet. Objective - Vital Signs/Intake and Output Vital Signs (last 24 hours): Temp Pulse Resp BP Pulse Ox 98.5 F 66 20 98/78 L 100 10/20/16 12:00 10/20/16 12:00 10/20/16 12:00 10/20/16 12:00 10/19/16 17:00 Intake and Output: 10/20/16 10/20/16 06:59 18:59 Intake Total 300 Balance 300 - Medications Medications: Current Medications Aspirin (Ecotrin) 81 mg PO DAILY [facility] Last Admin: 10/20/16 10:32 Dose: 81 mg Sodium Chloride (Sodium Chloride 0.9%) 1,000 mls @ 100 mls/hr IV .Q10H [facility] Last Admin: 10/20/16 13:14 Dose: Not Given Levofloxacin/Dextrose (Levaquin 500mg) 500 mg in 100 mls @ 100 mls/hr IVPB DAILY [facility] Last Admin: 10/20/16 10:32 Dose: 100 mls/hr Oxycodone/Acetaminophen (Percocet 5/325 Mg Tab) 1 tab PO Q6H PRN PRN Reason: Pain, severe (8-10) Stop: 10/23/16 13:13 Last Admin: 10/20/16 13:30 Dose: 1 tab - Labs Labs: 10/20/16 06:45 10/20/16 06:45 PT 11.1 Seconds (9.9-11.8) 10/19/16 14:30 INR 1.03 (0.93-1.08) 10/19/16 14:30 APTT 31.0 Seconds (23.7-30.8) H 10/19/16 14:30 - Constitutional Appears: No Acute Distress - Head Exam Head Exam: ATRAUMATIC, NORMAL INSPECTION, NORMOCEPHALIC - Eye Exam Eye Exam: EOMI, Normal appearance, PERRL Pupil Exam: NORMAL ACCOMODATION, PERRL - ENT Exam ENT Exam: Mucous Membranes Moist, Normal Exam - Neck Exam Neck Exam: Full ROM, Normal Inspection. absent: Lymphadenopathy - Respiratory Exam Respiratory Exam: Clear to Ausculation Bilateral, NORMAL BREATHING PATTERN - Cardiovascular Exam Cardiovascular Exam: REGULAR RHYTHM, +S1, +S2. absent: Murmur - GI/Abdominal Exam GI & Abdominal Exam: Soft, Normal Bowel Sounds. absent: Tenderness - Extremities Exam Extremities Exam: Full ROM, Normal Capillary Refill, Normal Inspection. absent : Joint Swelling, Pedal Edema - Neurological Exam Neurological Exam: Alert, Awake, CN II-XII Intact, Motor Sensory Deficit ( sensory deficit on left side), Oriented x3 Neuro motor strength exam: Left Upper Extremity: 4, Right Upper Extremity: 5, Left Lower Extremity: 4, Right Lower Extremity: 5 - Psychiatric Exam Psychiatric exam: Normal Affect, Normal Mood - Skin Skin Exam: Dry, Intact, Normal Color, Warm Assessment and Plan - Assessment and Plan (Free Text) Assessment: 51 F with PMHx of ovarian cancer s/p radiation, SLE, S1 tumor presenting with complains of headache x2 days and left sided numbness and weakness x1day. Pt states that roughly 2 days ago, pt began experiencing a diffuse headache, slightly worse on the left side for 2 days. Pt admitted to r/o CVA. 1. Left sided weakness/numbness - R/o CVA - CTH negative - CTA Head and neck negative - Brain MRI negative - Carotid dopplers negative - Asa, lipitor, - SCDs - Neurology consulted, Dr. Edin Hopkins, recommended fu with imaging and continue with medical mngmt -aspiration and fall precautions 2. Left visual deficit - ophthalmology consulted, Dr. Dennis 3. Leukocytosis - resolved - UA for uti, no dysuria - CXR without active disease - VSS 3. Headache/ left sided pain/ LBP - Hx of lumbar fusion - percocet 5/325 q6 prn 4. Tobacco abuse - conuselled pt on tobacco cessation - nicotine patch offered DVT ppx SCDs Seen reviewed and discussed with attending <Artis Lake MD - Last Filed: 10/20/16 17:14> Objective - Vital Signs/Intake and Output Vital Signs (last 24 hours): Temp Pulse Resp BP Pulse Ox 98.5 F 66 20 98/78 L 100 10/20/16 12:00 10/20/16 12:00 10/20/16 12:00 10/20/16 12:00 10/19/16 17:00 Intake and Output: 10/20/16 10/20/16 06:59 18:59 Intake Total 300 Balance 300 - Medications Medications: Current Medications Aspirin (Ecotrin) 81 mg PO DAILY [facility] Last Admin: 10/20/16 10:32 Dose: 81 mg Atorvastatin Calcium (Lipitor) 10 mg PO DIN [facility] Sodium Chloride (Sodium Chloride 0.9%) 1,000 mls @ 100 mls/hr IV .Q10H [facility] Last Admin: 10/20/16 13:14 Dose: Not Given Levofloxacin/Dextrose (Levaquin 500mg) 500 mg in 100 mls @ 100 mls/hr IVPB DAILY [facility] Last Admin: 10/20/16 10:32 Dose: 100 mls/hr Oxycodone/Acetaminophen (Percocet 5/325 Mg Tab) 2 tab PO Q6H PRN PRN Reason: Pain, severe (8-10) Stop: 10/23/16 13:13 - Labs Labs: 10/20/16 06:45 10/20/16 06:45 PT 11.1 Seconds (9.9-11.8) 10/19/16 14:30 INR 1.03 (0.93-1.08) 10/19/16 14:30 APTT 31.0 Seconds (23.7-30.8) H 10/19/16 14:30 Attending/Attestation - Attestation I have personally seen and examined this patient.: Yes I have fully participated in the care of the patient.: Yes I have reviewed all pertinent clinical information, including history, physical exam and plan: Yes Notes (Text): 10/20/16 17:08 Patient was seen and examined with biomedical instrument technician .Agreed with resident assessment and plan. Patient is feeling better, left upper extremity and leg weakness and sensory lose is improving, however still c/o of decrease vision id left eye.CT angography and MRI of Brain is normal, etiology of patient symptoms is not clear , will check CRP, patient is afebrile, does not look toxic, we will also get Opthalmology consult. Management plan was discussed in detail with patient Education was provided.
--- NOTE | 2016-10-20 15:38 | US ---
PROCEDURE: Left lower extremity venous US HISTORY: Leg pain and swelling. Evaluate for DVT. PHYSICIAN(S): Alexx Manzano MD. TECHNIQUE: Duplex sonography and color-flow Doppler with graded compression were used to evaluate the deep venous system of the left lower extremity. FINDINGS: The visualized deep venous system of the left lower extremity is sonographically normal and compressible. Normal wave forms and augmentation are seen. There is no sonographic evidence for deep venous thrombosis in the visualized segments of the left lower extremity. IMPRESSION: 1. No sonographic evidence for deep venous thrombosis in the visualized segments of the left lower extremity.
[2016-10-20] MEDS ORDERED: Oxycodone/Acetaminophen 10/325 mg Tab PO STA (16:14)
--- NOTE | 2016-10-20 16:26 | CARD ---
APPROVED REPORT EXAM: Two-dimensional and M-mode echocardiogram with Doppler and color Doppler. INDICATION CVA/TIA 2D DIMENSIONS Left Atrium (2D)4.0 (1.6-4.0cm)IVSd1.1 (0.7-1.1cm) LVDd4.6 (3.9-5.9cm)PWd1.2 (0.7-1.1cm) LVDs2.9 (2.5-4.0cm)FS (%) 36.2 % LVEF (%)66.0 (>50%) M-Mode DIMENSIONS Aortic Root3.10 (2.2-3.7cm)Aortic Cusp Exc.1.70 (1.5-2.0cm) Aortic Valve AoV Peak Sjtoyjeq659.0cm/Osmel Peak GR.9mmHg Mitral Valve MV E Cbxxoupf32.3cm/sMV A Kaskqabn60.0cm/sE/A ratio1.2 TDI Lateral E' Peak V12.30cm/sMedial E' Peak V9.36cm/sE/Lateral E'7.6 E/Medial E'10.0 Pulmonary Valve PV Peak Qgvmxzbk97.1cm/sPV Peak Grad.2mmHg Tricuspid Valve TR Peak [id number]/sRAP [id number] Peak Gr.21mmHg [id number] LEFT VENTRICLE The left ventricle is normal size. There is normal left ventricular wall thickness. The left ventricular function is normal. The left ventricular ejection fraction is within the normal range. There is normal LV segmental wall motion. The left ventricular diastolic function is normal. RIGHT VENTRICLE The right ventricle is normal size. There is normal right ventricular wall thickness. The right ventricular systolic function is normal. ATRIA The left atrium is borderline dilated. The right atrium size is normal. AORTIC VALVE The aortic valve is not well visualized. No aortic regurgitation is present. MITRAL VALVE The mitral valve is mildly thickened. Mitral regurgitation is trace. GREAT VESSELS The aortic root is normal in size. The IVC is normal in size and collapses >50% with inspiration. PERICARDIAL EFFUSION There is no pericardial effusion. <Conclusion> The left ventricle is normal size. There is normal left ventricular wall thickness. The left ventricular function is normal. The left ventricular ejection fraction is within the normal range. There is normal LV segmental wall motion. The left ventricular diastolic function is normal.
--- NOTE | 2016-10-20 17:46 | CON ---
DATE: 10/20/2016 CHIEF COMPLAINT: Headache and left-sided numbness. HISTORY OF PRESENT ILLNESS: A 51-year-old woman with history of ovarian cancer status post radiation , SLE, who complains of diffuse pressure headache for the past 2 days with left-sided numbness and we akness for the past day. She has been under a lot of stress and has been having more than 3 or 4 hea daches a month, which were not as severe as it was this time. MRI of the brain showed no acute intra cranial abnormalities, just chronic ischemic changes. Carotid Doppler shows 0% to 19% carotid artery stenosis with antegrade flow of vertebral arteries; was really nothing significant at this time. Cely mars is on aspirin and Lipitor for stroke prevention. She is doing well. Headaches are much less in in tensity. PAST MEDICAL HISTORY: History of migraine headaches in the past. History of ovarian cancer, status post radiation. REVIEW OF SYSTEMS: A 14-point review of systems negative except in the HPI. SOCIAL HISTORY: No illicit drug use, smoking, or ETOH abuse. FAMILY HISTORY: Noncontributory. SOCIAL HISTORY: No illicit drug use or ETOH abuse. ALLERGIES: ALLERGIC TO PENICILLIN V. FAMILY HISTORY: Noncontributory. MEDICATIONS: Reviewed via nurses' reconciliation sheet. PHYSICAL EXAMINATION: VITAL SIGNS: Temperature of 97.8, pulse rate of 66, blood pressure 108/69, respiratory rate 20. GENERAL: The patient is sitting up in bed in no acute distress. HEENT: Atraumatic, normocephalic. PERRLA. Extraocular muscles intact. NECK: Supple, no JVD, no adenopathy noted. LUNGS: Clear to auscultation. No adventitious sounds. HEART: S1, S2, normal rate and rhythm. No murmurs, rubs, or gallops. ABDOMEN: Soft, nontender, nondistended. Bowel sounds present. EXTREMITIES: No clubbing, no cyanosis. Peripheral pulses 2+ felt bilaterally. NEUROLOGIC: The patient is alert, oriented to person, place, month, and year. Speech is fluent, wit hout any errors. Cranial nerves II-XII are intact. MOTOR: Moves all extremities equally. Toes downgoing bilaterally. SENSORY: Light touch, pinprick, proprioception, and vibration intact. DTRs are 2+ throughout. COORDINATION: [id number] intact. GAIT: Deferred for now. LABORATORIES: Sodium is 137, potassium 3.9, chloride of 110, carbon dioxide of 19, BUN of 11, creati nine 0.8. Random glucose 94. ASSESSMENT: This is a 51-year-old woman with history of ovarian cancer status post radiation, histor y of lumbosacral fusion as result of lower back pain, history of a left visual deficit. Came in with diffuse pressure headache with left-sided numbness and weakness. Evaluate for a stroke, but the MRI of the brain showed no acute intracranial abnormality. Carotid Doppler was negative for any severe hemodynamic stenosis. CTAs of the head and neck were negative. Likely her presenting symptoms are s econdary to a complicated migraine causing stroke-like symptoms. PLAN: At this time, recommend: 1. Aspirin 81 mg, Lipitor 20 mg p.o. daily for stroke prevention. 2. Could consider gabapentin 300 mg p.o. nightly for headache reduction. 3. Follow up with ophthalmology in regards to left-sided visual field deficit. 4. Counseled on tobacco cessation and continue with current present medical management. No further neurological workup needed at this time. Will sign off. She is clinically stable. She c an follow up as an outpatient. Andrews Hopkins MD cc: [id number] TT: 10/20/2016 17:46:08 Confirmation # [id number] Dictation # [id number] jami
[2016-10-20] MEDS: Oxycodone/Acetaminophen 5/325 mg Tab PO PRN (20:28)
--- NOTE | 2016-10-20 23:28 | CARD ---
APPROVED REPORT EKG Measurement Heart [id number] <Conclusion> Normal sinus rhythm Normal ECG
[2016-10-21 00:49] VITALS: O2SAT 98
[2016-10-21] MEDS: Oxycodone/Acetaminophen 5/325 mg Tab PO PRN ×4 (02:28→20:54)
[2016-10-21 05:45] LABS: ADD MANUAL DIFF? NO
[2016-10-21 05:56] LABS: BASO # 0.03 K/mm3 (0.0-2.0); BASO % 0.3 % (0.0-3.0); EOS # 0.1 (0.0-0.7); EOS % 1.4 % (1.5-5.0); GRAN # 5.35 (1.4-6.5); GRAN % 59.1 % (50.0-68.0); HEMATOCRIT 38.7 % (36.0-48.0); LYMPH # 3.1 (1.2-3.4); LYMPH % 33.7 % (22.0-35.0); MEAN CELL VOLUME 92.1 fL (80.0-105.0); MEAN CORPUSCULAR HEMOGLOBIN 30.7 pg (25.0-35.0); MEAN CORPUSCULAR HGB CONC 33.3 g/dl (31.0-37.0); MONO # 0.5 (0.1-0.6); MONO % 5.5 % (1.0-6.0); PLATELET COUNT 241 10^3/uL (120.0-450.0); RED CELL DISTRIBUTION WIDTH 15.5 % (11.5-14.5); WHITE BLOOD COUNT 9.1 10^3/ul (4.5-11.0)
[2016-10-21 05:59] LABS: ALB/GLOB RATIO 1.2 (1.1-1.8); ALKALINE PHOSPHATASE 101 U/L (38-133); ALT/SGPT 87 U/L (7-56); AST/SGOT 40 U/L (15-39); BILIRUBIN,TOTAL 0.5 mg/dL (0.2-1.3); BLOOD UREA NITROGEN 14 mg/dL (7-21); CARBON DIOXIDE 26 mmol/L (21-33); CHLORIDE 106 mmol/L (98-107); GFR AFRICAN-AMERICAN > 60; GLUCOSE,RANDOM 103 mg/dL (70-110); POTASSIUM 4.9 mmol/L (3.6-5.0); SODIUM 139 mmol/L (132-148); TOTAL PROTEIN 7.6 g/dL (5.8-8.3)
[2016-10-21] MEDS: levoFLOXacin 500 mg in D5W 500 MG/100 ML BAG IVPB SCH (10:20)
--- NOTE | 2016-10-21 12:07 | CP.PCM.PN ---
<Margoth Omer - Last Filed: 10/21/16 12:13> Subjective - Date & Time of Evaluation Date of Evaluation: 10/21/16 Time of Evaluation: 09:00 - Subjective Subjective: Pt was seen and examined at bedside. Pt states she is feeling much better, her left sided weakness is improving and her left sided vision is "much better" than yesterday. Pt has mild complaints of back pain. As per nursing staff, no acute or adverse events overnight. Pt denied fever, chills, sob, chest pains, abdominal pains, or n/v/d/c. Objective - Vital Signs/Intake and Output Vital Signs (last 24 hours): Temp Pulse Resp BP Pulse Ox 97.6 F 50 L 18 143/84 98 10/21/16 11:51 10/21/16 11:51 10/21/16 11:51 10/21/16 11:51 10/21/16 06:00 Intake and Output: 10/21/16 10/21/16 06:59 18:59 Intake Total 480 Balance 480 - Medications Medications: Current Medications Aspirin (Ecotrin) 81 mg PO DAILY [facility] Last Admin: 10/21/16 10:20 Dose: 81 mg Atorvastatin Calcium (Lipitor) 10 mg PO DIN [facility] Last Admin: 10/20/16 18:40 Dose: 10 mg Sodium Chloride (Sodium Chloride 0.9%) 1,000 mls @ 100 mls/hr IV .Q10H [facility] Last Admin: 10/20/16 13:14 Dose: Not Given Levofloxacin/Dextrose (Levaquin 500mg) 500 mg in 100 mls @ 100 mls/hr IVPB DAILY [facility] Last Admin: 10/21/16 10:20 Dose: 100 mls/hr Oxycodone/Acetaminophen (Percocet 5/325 Mg Tab) 2 tab PO Q6H PRN PRN Reason: Pain, severe (8-10) Stop: 10/23/16 13:13 Last Admin: 10/21/16 07:45 Dose: 2 tab - Labs Labs: 10/21/16 05:15 10/21/16 05:15 PT 11.1 Seconds (9.9-11.8) 10/19/16 14:30 INR 1.03 (0.93-1.08) 10/19/16 14:30 APTT 31.0 Seconds (23.7-30.8) H 10/19/16 14:30 - Constitutional Appears: Well, No Acute Distress - Head Exam Head Exam: ATRAUMATIC, NORMAL INSPECTION, NORMOCEPHALIC - Eye Exam Eye Exam: EOMI, Normal appearance, PERRL Pupil Exam: NORMAL ACCOMODATION, PERRL - ENT Exam ENT Exam: Mucous Membranes Moist, Normal Exam - Neck Exam Neck Exam: Full ROM, Normal Inspection. absent: Lymphadenopathy - Respiratory Exam Respiratory Exam: Clear to Ausculation Bilateral, NORMAL BREATHING PATTERN - Cardiovascular Exam Cardiovascular Exam: REGULAR RHYTHM, +S1, +S2. absent: Murmur - GI/Abdominal Exam GI & Abdominal Exam: Soft, Normal Bowel Sounds. absent: Tenderness - Extremities Exam Extremities Exam: Full ROM, Normal Capillary Refill, Normal Inspection. absent : Joint Swelling, Pedal Edema - Back Exam Back Exam: tenderness - Neurological Exam Neurological Exam: Alert, Awake, CN II-XII Intact, Normal Gait, Oriented x3 Neuro motor strength exam: Left Upper Extremity: 4, Right Upper Extremity: 5, Left Lower Extremity: 3, Right Lower Extremity: 3 - Psychiatric Exam Psychiatric exam: Normal Affect, Normal Mood - Skin Skin Exam: Dry, Intact, Normal Color, Warm Assessment and Plan - Assessment and Plan (Free Text) Assessment: 51 F with PMHx of ovarian cancer s/p radiation, SLE, S1 tumor presenting with complains of headache x2 days and left sided numbness and weakness x1day. Pt states that roughly 2 days ago, pt began experiencing a diffuse headache, slightly worse on the left side for 2 days. Pt admitted to r/o CVA. 1. 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 Edin Hopkins, continue with medical mngmt - aspiration and fall precautions 2. Left visual deficit - improving - ophthalmology consulted, Dr. Dennis 3. Leukocytosis - no leukocytosis currently, afebrile - UA for uti, no dysuria, cx positive for ESBL, ID consulted - Dr. Vegas, IV merrem - CXR without active disease - VSS 3. Headache/ left sided pain/ LBP - Hx of lumbar fusion - percocet 5/325 q6 prn 4. Tobacco abuse - conuselled pt on tobacco cessation - nicotine patch offered DVT ppx SCDs Seen reviewed and discussed with attending <Artis Lake MD - Last Filed: 10/22/16 11:41> Objective - Vital Signs/Intake and Output Vital Signs (last 24 hours): Temp Pulse Resp BP Pulse Ox 97.0 F L 68 20 90/59 L 98 10/22/16 06:00 10/22/16 06:00 10/22/16 06:00 10/22/16 06:00 10/21/16 06:00 Intake and Output: 10/22/16 10/22/16 06:59 18:59 Intake Total 420 1340 Balance 420 1340 - Medications Medications: Current Medications Aspirin (Ecotrin) 81 mg PO DAILY [facility] Last Admin: 10/22/16 10:43 Dose: 81 mg Atorvastatin Calcium (Lipitor) 10 mg PO DIN [facility] Last Admin: 10/21/16 17:53 Dose: 10 mg Sodium Chloride (Sodium Chloride 0.9%) 1,000 mls @ 100 mls/hr IV .Q10H [facility] Last Admin: 10/20/16 13:14 Dose: Not Given Sodium Chloride (Sodium Chloride 0.9%) 1,000 mls @ 200 mls/hr IV .Q5H [facility] Last Admin: 10/22/16 07:47 Dose: 200 mls/hr Meropenem 1g/NS 100mL IVPB (Meropenem 1g/Ns 100ml Ivpb) 1 gm in 100 mls @ 100 mls/hr IVPB Q12 [facility] PRN Reason: Protocol Stop: 10/29/16 22:01 Oxycodone/Acetaminophen (Percocet 5/325 Mg Tab) 2 tab PO Q6H PRN PRN Reason: Pain, severe (8-10) Stop: 10/23/16 13:13 Last Admin: 10/22/16 11:00 Dose: 2 tab - Labs Labs: 10/22/16 06:00 10/22/16 06:00 PT 11.1 Seconds (9.9-11.8) 10/19/16 14:30 INR 1.03 (0.93-1.08) 10/19/16 14:30 APTT 31.0 Seconds (23.7-30.8) H 10/19/16 14:30 Attending/Attestation - Attestation I have fully participated in the care of the patient.: Yes I have reviewed all pertinent clinical information, including history, physical exam and plan: Yes Notes (Text): 10/22/16 11:37 Patient was seen and examined with medical aide .Agreed with resident assessment and plan. 51 F with PMHx of ovarian cancer s/p radiation, SLE, S1 tumor presenting with complains of headache x2 days and left sided numbness and weakness x1day. Pt states that roughly 2 days ago, pt began experiencing a diffuse headache, slightly worse on the left side for 2 days. Pt admitted to r/o CVA. ,CT angiography and MRI brain was normal.Patient symptoms has improved.Headache has resolved.Left eye vision has improved.Patient was evaluated by Neurology and felt that her symptoms are likely due to complicated Migrain.Patient is ambulatory. Patient was also found to have UTI, did improve with levofloxacin, however urine cultures grew ESBL, discuss with ID, plan for IV Meropenem for 5 days.Patient can be discharged home with home IV antibiotics after PICC line.Case management is working on arrangement. Management plan was discussed in detail with patient Education was provided.
[2016-10-21] MEDS: Meropenem 1g/NS 100mL IVPB 1 GM/100 ML PIGGYBACK IVPB SCH ×2 (14:18→21:42)
[2016-10-21] MEDS ORDERED: Lidocaine 2% Inj (20ml) ONE (15:26)
--- NOTE | 2016-10-21 17:30 | VASCULAR ---
PROCEDURE: Ultrasound and fluoroscopically placed left upper extremity PICC line. HISTORY: Sepsis. Jair tract infection. Long-term IV antibiotics. Needs PICC line PHYSICIAN(S): Alexx Manzano MD. TECHNIQUE: The relative risks and indications of the procedure were explained to the patient and consent obtained. The patient was placed supine on the arteriogram table and the left arm prepped and draped in the usual sterile fashion. A tourniquet was applied to the left axilla. 1% Xylocaine was used to anesthetize the skin and soft tissues at the puncture site above the elbow. The left basilic vein was punctured under direct ultrasound guidance with a micropuncture set. A 0.018 guidewire was advanced centrally and used to measure the length to the SVC/RA junction. A 5 Japanese single-lumen PICC line 44 cm long was advanced to the SVC/RA junction. The catheter was flushed and secured. The patient tolerated the procedure well. IMPRESSION: 1. Ultrasound and fluoroscopically placed left upper extremity PICC line. A 5 Japanese single-lumen PICC line 44 cm long was advanced to the SVC/RA junction.
[2016-10-22] MEDS ORDERED: Meropenem 1g/NS 100mL IVPB 1 GM/100 ML PIGGYBACK IVPB SCH ×2 (06:00→22:00)
[2016-10-22] MEDS: Oxycodone/Acetaminophen 5/325 mg Tab PO PRN ×2 (06:13→11:00)
[2016-10-22 06:23] LABS: ADD MANUAL DIFF? NO
[2016-10-22 06:26] LABS: BASO # 0.02 K/mm3 (0.0-2.0); BASO % 0.2 % (0.0-3.0); EOS # 0.1 (0.0-0.7); EOS % 1.5 % (1.5-5.0); GRAN # 5.62 (1.4-6.5); GRAN % 68.4 % (50.0-68.0); HEMATOCRIT 37.8 % (36.0-48.0); LYMPH % 24.3 % (22.0-35.0); MEAN CELL VOLUME 90.6 fL (80.0-105.0); MEAN CORPUSCULAR HEMOGLOBIN 30.5 pg (25.0-35.0); MEAN CORPUSCULAR HGB CONC 33.6 g/dl (31.0-37.0); MONO # 0.5 (0.1-0.6); MONO % 5.6 % (1.0-6.0); PLATELET COUNT 223 10^3/uL (120.0-450.0); RED CELL DISTRIBUTION WIDTH 15.1 % (11.5-14.5); WHITE BLOOD COUNT 8.2 10^3/ul (4.5-11.0)
[2016-10-22 06:36] LABS: ALB/GLOB RATIO 1.1 (1.1-1.8); ALKALINE PHOSPHATASE 94 U/L (38-133); ALT/SGPT 78 U/L (7-56); AST/SGOT 39 U/L (15-39); BILIRUBIN,TOTAL 0.4 mg/dL (0.2-1.3); BLOOD UREA NITROGEN 13 mg/dL (7-21); CALCIUM 9.6 mg/dL (8.4-10.5); CARBON DIOXIDE 24 mmol/L (21-33); CHLORIDE 106 mmol/L (98-107); GFR AFRICAN-AMERICAN > 60; GLUCOSE,RANDOM 99 mg/dL (70-110); SODIUM 138 mmol/L (132-148); TOTAL PROTEIN 7.3 g/dL (5.8-8.3)
[2016-10-22] MEDS ORDERED: Sodium Chloride 0.9% 1,000 ML IV SCH (07:45)
[2016-10-22 12:28] VITALS: BP 102/67; RESP 18; TEMP 98.3
[2016-10-22] MEDS ORDERED: Meropenem 1g/NS 100mL IVPB 1 GM/100 ML PIGGYBACK IVPB ONE (13:19)
--- NOTE | 2016-10-22 14:19 | CP.PCM.CON ---
History of Present Illness - History of Present Illness History of Present Illness: 51 year old female with PMH of ovarian cancer S/P radiation therapy, S/P cholecystectomy, S/P lumbar fusion surgery, obesity with BMI 34 was brought in initially because of headache, left sided weakness and numbness. No acute cerebrovascular accident was noted and the patient got clinically better. As part of the initial work up, urine cx were done which are now showing ESBL E. coli in the urine. The patient initially did complain of some urinary frequency. She denies fever or chills, currently no headache or dizziness, no abdominal pain, no flank or suprapubic pain, no dysuria currently, no SOB, no chest pain, no cough or colds, no dysphagia. Infectious Diseases consult is requested to further evaluate and manage. Review of Systems - Review of Systems All systems: reviewed and no additional remarkable complaints except (as per HPI ) Past Patient History - Infectious Disease Hx of Infectious Diseases: None - Tetanus Immunizations Tetanus Immunization: Unknown - Past Social History Smoking Status: Current Some Days Smoker - CARDIAC Hx Cardiac Disorders: No Hx Congestive Heart Failure: No Hx Hypercholesterolemia: No Hx Hypertension: No - PULMONARY Hx Chronic Obstructive Pulmonary Disease (COPD): Yes (smoker) - NEUROLOGICAL HX Cerebrovascular Accident: Yes (10-19-16 LEFT SIDED) - HEENT Hx HEENT Problems: Yes - RENAL Hx Renal Failure: No - ENDOCRINE/METABOLIC Hx Diabetes Mellitus Type 1: No Hx Diabetes Mellitus Type 2: No Hx Hypothyroidism: No - HEMATOLOGICAL/ONCOLOGICAL Hx Blood Disorders: Yes Hx Cancer: Yes (ovarian ca -TOOK CHEMO PILLS.DENIES HAVING RADIATION.) - INTEGUMENTARY Hx Dermatological Problems: No - MUSCULOSKELETAL/RHEUMATOLOGICAL Hx Arthritis: No - GASTROINTESTINAL Hx Gastroesophageal Reflux: No - GENITOURINARY/GYNECOLOGICAL Hx Genitourinary Disorders: No Other/Comment: Ovarian CA - PSYCHIATRIC Hx Psychophysiologic Disorder: Yes (SMOKES 5 CIG A DAY) Hx Depression: No Hx Substance Use: No - SURGICAL HISTORY Hx Surgeries: Yes Hx Cholecystectomy: Yes Other/Comment: Ovarian Surgery. Bone fusion. Pt with artificial disc. 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 Patient has 4screws/2rods/2plates on back - ANESTHESIA Hx Anesthesia: No Hx Anesthesia Reactions: No Hx Malignant Hyperthermia: No Meds Home Medications: Home Medication List Medication Instructions Recorded Confirmed Type Gabapentin [Neurontin] 300 mg PO HS #30 cap 10/22/16 Rx Meropenem [Merrem IV] 1 gm IV Q12H #1 pds 10/22/16 Rx Allergies/Adverse Reactions: Allergies Allergy/AdvReac Type Severity Reaction Status Date / Time penicillin V Allergy RASH Verified 10/19/16 20:11 - Medications Medications: Current Medications Aspirin (Ecotrin) 81 mg PO DAILY [facility] Last Admin: 10/21/16 10:20 Dose: 81 mg Atorvastatin Calcium (Lipitor) 10 mg PO DIN [facility] Last Admin: 10/21/16 17:53 Dose: 10 mg Sodium Chloride (Sodium Chloride 0.9%) 1,000 mls @ 100 mls/hr IV .Q10H [facility] Last Admin: 10/20/16 13:14 Dose: Not Given Meropenem 1g/NS 100mL IVPB (Meropenem 1g/Ns 100ml Ivpb) 1 gm in 100 mls @ 100 mls/hr IVPB Q8 [facility] PRN Reason: Protocol Stop: 10/21/16 22:59 Last Admin: 10/21/16 14:18 Dose: 100 mls/hr Meropenem 1g/NS 100mL IVPB (Meropenem 1g/Ns 100ml Ivpb) 1 gm in 100 mls @ 100 mls/hr IVPB Q8 [facility] PRN Reason: Protocol Stop: 10/29/16 06:01 Oxycodone/Acetaminophen (Percocet 5/325 Mg Tab) 2 tab PO Q6H PRN PRN Reason: Pain, severe (8-10) Stop: 10/23/16 13:13 Last Admin: 10/21/16 14:02 Dose: 2 tab Physical Exam - Constitutional Appears: Non-toxic, No Acute Distress - Head Exam Head Exam: NORMAL INSPECTION - ENT Exam ENT Exam: Mucous Membranes Moist - Neck Exam Neck exam: Negative for: Lymphadenopathy, Meningismus - Respiratory Exam Respiratory Exam: Decreased Breath Sounds - Cardiovascular Exam Cardiovascular Exam: +S1, +S2 - GI/Abdominal Exam GI & Abdominal Exam: Normal Bowel Sounds, Soft. absent: Tenderness - Back Exam Back exam: absent: CVA tenderness (L), CVA tenderness (R) Results - Vital Signs Recent Vital Signs: Last Vital Signs Temp 98 F 10/21/16 17:49 Pulse 74 10/21/16 18:00 Resp 18 10/21/16 17:49 BP 122/85 10/21/16 17:49 Pulse Ox 98 10/21/16 06:00 - Labs Result Diagrams: 10/22/16 06:00 10/22/16 06:00 Labs: Laboratory Results - last 24 hr 10/21/16 10/21/16 05:15 05:15 WBC 9.1 RBC 4.20 Hgb 12.9 Hct 38.7 MCV 92.1 MCH 30.7 MCHC 33.3 RDW 15.5 H Plt Count 241 MPV 10.0 Gran % 59.1 Lymph % (Auto) 33.7 [place] % (Auto) 5.5 Eos % (Auto) 1.4 L Baso % (Auto) 0.3 Gran # 5.35 Lymph # 3.1 [place] # 0.5 Eos # 0.1 Baso # 0.03 Sodium 139 Potassium 4.9 Chloride 106 Carbon Dioxide 26 Anion Gap 12 BUN 14 Creatinine 1.0 Est GFR ( Amer) > 60 Est GFR (Non-Af Amer) 59 Random Glucose 103 Calcium 10.0 Total Bilirubin 0.5 AST 40 H ALT 87 H Alkaline Phosphatase 101 Total Protein 7.6 Albumin 4.2 Globulin 3.4 Albumin/Globulin Ratio 1.2 Assessment & Plan - Assessment and Plan (Free Text) Plan: Assessment ESBL E. coli lower urinary tract infection ovarian cancer S/P radiation therapy S/P cholecystectomy S/P lumbar fusion surgery obesity with BMI 34 Plan Started patient on Merrem - as discussed with dr. Lake, should complete a 5-7 day course
[2016-10-22 15:50] VITALS: PULSE 76
== END 2016-10-22 15:50 | disposition home or self-care (01) | DRG 891 ==
LOC: ED 13:25 → ERH 15:35 → 2RNO 18:05
PROVIDERS: ADMIT Internal Medicine; ATTEND Internal Medicine
PROC: 02HV33Z Insertion of Infusion Device into Superior Vena Cava, Percutaneous Approach (ICD-10-PCS; principal; 2016-10-21)
PROC: B518ZZA Fluoroscopy of Superior Vena Cava, Guidance (ICD-10-PCS; 2016-10-21)
PROC: B54NZZA Ultrasonography of Left Upper Extremity Veins, Guidance (ICD-10-PCS; 2016-10-21)
DX: G43.B0 Ophthalmoplegic migraine, not intractable (principal); M32.9 Systemic lupus erythematosus, unspecified; N39.0 Urinary tract infection, site not specified; J44.9 Chronic obstructive pulmonary disease, unspecified; B96.20 Unspecified Escherichia coli [E. coli] as the cause of diseases classified elsewhere; E66.9 Obesity, unspecified; Z68.34 Body mass index [BMI] 34.0-34.9, adult; Z85.43 Personal history of malignant neoplasm of ovary; Z92.3 Personal history of irradiation; Z87.01 Personal history of pneumonia (recurrent); Z90.49 Acquired absence of other specified parts of digestive tract; Z98.1 Arthrodesis status; Z72.0 Tobacco use; Z79.899 Other long term (current) drug therapy; Z80.6 Family history of leukemia; Z82.3 Family history of stroke; Z82.49 Family history of ischemic heart disease and other diseases of the circulatory system; Z88.0 Allergy status to penicillin; R40.2412 Glasgow coma scale score 13-15, at arrival to emergency department; H53.9 Unspecified visual disturbance

== ENCOUNTER 2016-11-26 12:45 | Emergency (ER) | payer MEDICAID ==
[2016-11-26 12:45] VITALS: BMI 42.7
[2016-11-26 13:12] VITALS: RESP 18; TEMP 98.4; O2SAT 98
--- NOTE | 2016-11-26 13:20 | ED PDOC ---
Arrival/HPI - General Chief Complaint: Headache Time Seen by Provider: 11/26/16 12:49 Historian: Patient - History of Present Illness Narrative History of Present Illness (Text): 11/26/16 14:05 A 51 year old female, whose medical history includes leukocytosis, chronic back pain, pneumonia, migraines, UTI, is presenting to the emergency department with a headache that is radiating from to her upper back for the past 3 days. The patient denies any trauma, taking medicine for pain, blurry vision, double vision, chest pain, shortness of breath, or any other complaints at this time. Time/Duration: < week (3 days ) Symptom Onset: Gradual Symptom Course: Unchanged Activities at Onset: Rest Context: Home Past Medical History - Provider Review Nursing Documentation Reviewed: Yes - Past History Past History: No Previous - Infectious Disease Hx of Infectious Diseases: None - Tetanus Immunization Tetanus Immunization: Unknown - Reproductive Menopause: Yes - Cardiac Hx Cardiac Disorders: No Hx Congestive Heart Failure: No Hx Hypertension: No - Pulmonary Hx Chronic Obstructive Pulmonary Disease (COPD): Yes (smoker) - Neurological HX Cerebrovascular Accident: Yes (10-19-16 LEFT SIDED) - HEENT Hx HEENT Disorder: Yes - Renal Hx Renal Failure: No - Endocrine/Metabolic Hx Diabetes Mellitus Type 1: No Hx Diabetes Mellitus Type 2: No Hx Hypothyroidism: No - Hematological/Oncological Hx Blood Disorders: Yes Hx Cancer: Yes (ovarian ca -TOOK CHEMO PILLS.DENIES HAVING RADIATION.) - Integumentary Hx Dermatological Disorder: No - Musculoskeletal/Rheumatological Hx Arthritis: No - Gastrointestinal Hx Gastroesophageal Reflux: No - Genitourinary/Gynecological Hx Genitourinary Disorders: No Other/Comment: Ovarian CA - Psychiatric Hx Psychophysiologic Disorder: Yes (SMOKES 5 CIG A DAY) Hx Depression: No Hx Substance Use: No - Surgical History Hx Cholecystectomy: Yes Other/Comment: Ovarian Surgery. Bone fusion. Pt with artificial disc. 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 Patient has 4screws/2rods/2plates on back - Anesthesia Hx Anesthesia: No Hx Anesthesia Reactions: No Hx Malignant Hyperthermia: No - Suicidal Assessment Feels Threatened In Home Enviroment: No Family/Social History - Physician Review Nursing Documentation Reviewed: Yes Family/Social History: Unknown Family HX Smoking Status: Light Smoker < 10 Cigarettes Daily Hx Alcohol Use: No Hx Substance Use: No Hx Substance Use Treatment: No Allergies/Home Meds Allergies/Adverse Reactions: Allergies penicillin V Allergy (Verified 10/19/16 20:11) RASH Home Medications: Home Meds Medication Instructions Recorded Confirmed oxyCODONE/Acetaminophen [Percocet 1 tab PO PRN PRN 10/19/16 10/19/16 5/325 mg Tab] Review of Systems - Physician Review All systems were reviewed & negative as marked: Yes - Review of Systems Eyes: absent: Vision Changes Respiratory: absent: SOB Cardiovascular: absent: Chest Pain Physical Exam Vital Signs Temp Pulse Resp BP Pulse Ox 11/26/16 14:15 79 18 112/75 98 11/26/16 13:12 98.4 F 86 18 110/89 98 Temperature: Afebrile Blood Pressure: Normal Pulse: Regular Respiratory Rate: Normal Appearance: Positive for: Well-Appearing, Non-Toxic, Comfortable Pain Distress: None Mental Status: Positive for: Alert and Oriented X 3 - Systems Exam Head: Present: Atraumatic, Normocephalic Pupils: Present: PERRL Extroacular Muscles: Present: EOMI Conjunctiva: Present: Normal Mouth: Present: Moist Mucous Membranes Neck: Present: Normal Range of Motion Respiratory/Chest: Present: Clear to Auscultation, Good Air Exchange. No: Respiratory Distress, Accessory Muscle Use Cardiovascular: Present: Regular Rate and Rhythm, Normal S1, S2. No: Murmurs Abdomen: Present: Normal Bowel Sounds. No: Tenderness, Distention, Peritoneal Signs Back: Present: Normal Inspection Upper Extremity: Present: Normal Inspection. No: Cyanosis, Edema Lower Extremity: Present: Normal Inspection. No: Edema Neurological: Present: GCS=15, CN II-XII Intact, Speech Normal Skin: Present: Warm, Dry, Normal Color. No: Rashes Psychiatric: Present: Alert, Oriented x 3, Normal Insight, Normal Concentration Medical Decision Making ED Course and Treatment: 11/26/16 13:18 Impression: A 51 year old female with a headache. Differential Diagnosis included but are not limited to: Headache Plan: -- Flexeril -- OxyCODONE/Acetaminophin -- Reassess and disposition Prior Visits: Notes and results from previous visits were reviewed. On 10/19/16 patient was last seen for a headache and was hospitalized. - Medication Orders Current Medication Orders: Discontinued Medications Cyclobenzaprine HCl (Flexeril) 10 mg PO STAT STA Stop: 11/26/16 13:48 Last Admin: 11/26/16 13:56 Dose: 10 mg Oxycodone/Acetaminophen (Percocet 5/325 Mg Tab) 1 tab PO STAT [facility] Stop: 11/26/16 13:48 Last Admin: 11/26/16 13:56 Dose: 1 tab - Scribe Statement The provider has reviewed the documentation as recorded by the [facility] Provider Scribe Attestation: All medical record entries made by the Scribe were at my direction and personally dictated by me. I have reviewed the chart and agree that the record accurately reflects my personal performance of the history, physical exam, medical decision making, and the department course for this patient. I have also personally directed, reviewed, and agree with the discharge instructions and disposition. Disposition/Present on Arrival - Present on Arrival Any Indicators Present on Arrival: No History of DVT/PE: No History of Uncontrolled Diabetes: No Urinary Catheter: No History of Decub. Ulcer: No History Surgical Site Infection Following: None - Disposition Have Diagnosis and Disposition been Completed?: Yes Diagnosis: Back pain Disposition: HOME/ ROUTINE Disposition Time: 13:40 Condition: GOOD Discharge Instructions (ExitCare): Chronic Back Pain (ED) Additional Instructions: Thank you for letting us take care of you today. Your provider was Dr. Hong. You were treated for back pain. The emergency medical care you received today was directed at your acute symptoms. If you were prescribed any medication, please fill it and take as directed. It may take several days for your symptoms to resolve. Return to the Emergency Department if your symptoms worsen, do not improve, or if you have any other problems. Please contact your doctor or call one of the physicians/clinics you have been referred to that are listed on the Patient Visit Information form that is included in your discharge packet. Bring any paperwork you were given at discharge with you along with any medications you are taking to your follow up visit. Our treatment cannot replace ongoing medical care by a primary care provider (PCP) outside of the emergency department. Thank you for allowing the [facility] team to be part of your care today. Follow up with your primary doctor for pain management and further evaluation in 2-3 days. Referrals: Catia Murguia MD [Non-Staff] - Follow up with primary
[2016-11-26] MEDS ORDERED: Oxycodone/Acetaminophen 5/325 mg Tab PO STA (13:47)
[2016-11-26 14:23] VITALS: BP 112/75; PULSE 79
== END 2016-11-26 14:20 | disposition home or self-care (01) ==
LOC: ED 12:45
DX: M54.9 Dorsalgia, unspecified (principal)

== ENCOUNTER 2017-05-25 20:17 | Emergency (ER) | payer MEDICAID ==
[2017-05-25] MEDS ORDERED: Sodium Chloride 0.9% 1,000 ML IV STA (20:39)
[2017-05-25 21:26] LABS: PH,URINE 5.5 (4.7-8.0); URINE BILIRUBIN NEGATIVE (NEGATIVE); URINE BLOOD LARGE (NEGATIVE); URINE GLUCOSE (UA) NEGATIVE (NEGATIVE); URINE LEUKOCYTE ESTERASE SMALL Leu/uL (NEGATIVE); URINE NITRATE NEGATIVE (NEGATIVE); URINE PROTEIN NEGATIVE mg/dL (<30 mg/dL); URINE UROBILINOGEN 0.2 E.U./dL (<1 E.U./dL)
[2017-05-25 21:31] LABS: URINE APPEARANCE SL CLOUDY (CLEAR); URINE COLOR YELLOW (YELLOW)
[2017-05-25 21:37] LABS: URINE BACTERIA MOD (NEG)
[2017-05-25 21:52] LABS: BASO # 0.01 K/mm3 (0.0-2.0); BASO % 0.1 % (0.0-3.0); EOS # 0.1 (0.0-0.7); EOS % 1.4 % (1.5-5.0); GRAN # 5.69 (1.4-6.5); GRAN % 62.5 % (50.0-68.0); LYMPH # 2.8 (1.2-3.4); LYMPH % 30.7 % (22.0-35.0); MEAN CELL VOLUME 93.3 fl (80.0-105.0); MEAN CORPUSCULAR HGB CONC 33.2 g/dl (31.0-37.0); MEAN PLATELET VOLUME 10.4 fl (7.0-11.0); MONO # 0.5 (0.1-0.6); MONO % 5.3 % (1.0-6.0); RBC 4.19 10^6/uL (3.5-6.1); RED CELL DISTRIBUTION WIDTH 14.6 % (11.5-14.5); WHITE BLOOD COUNT 9.1 10^3/ul (4.5-11.0)
--- NOTE | 2017-05-25 22:01 | ED PDOC ---
Arrival/HPI - General Chief Complaint: Abdominal Pain Time Seen by Provider: 05/25/17 20:39 Historian: Patient - History of Present Illness Narrative History of Present Illness (Text): 05/25/17 21:53 51yo female with PMhx of chronic lower back pain and CVA present with complaint of stabbing intermittent RUQ abdominal pain and positional dizziness x 2days.She report history of this same dizziness x months, but have never seen a Doctor for it. States dizziness is usually associated with tinnitus. She denies nausea, vomiting, diarrhea, constipation, fever, chest pain, focal weakness, sick contact, travel, urinary symptoms, melena, hematemesis. She is s/p cholecystectomy. Past Medical History - Provider Review Nursing Documentation Reviewed: Yes - Past History Past History: No Previous - Infectious Disease Hx of Infectious Diseases: None - Tetanus Immunization Tetanus Immunization: Unknown - Cardiac Hx Cardiac Disorders: No Hx Congestive Heart Failure: No Hx Hypertension: No - Pulmonary Hx Chronic Obstructive Pulmonary Disease (COPD): Yes (smoker) - Neurological HX Cerebrovascular Accident: Yes (10-19-16 LEFT SIDED) - HEENT Hx HEENT Disorder: Yes - Renal Hx Renal Failure: No - Endocrine/Metabolic Hx Diabetes Mellitus Type 1: No Hx Diabetes Mellitus Type 2: No Hx Hypothyroidism: No - Hematological/Oncological Hx Blood Disorders: Yes Hx Cancer: Yes (ovarian ca -TOOK CHEMO PILLS.DENIES HAVING RADIATION.) - Integumentary Hx Dermatological Disorder: No - Musculoskeletal/Rheumatological Hx Arthritis: No - Gastrointestinal Hx Gastroesophageal Reflux: No - Genitourinary/Gynecological Hx Genitourinary Disorders: No Other/Comment: Ovarian CA - Psychiatric Hx Psychophysiologic Disorder: Yes (SMOKES 5 CIG A DAY) Hx Depression: No Hx Substance Use: No - Surgical History Hx Cholecystectomy: Yes Other/Comment: Ovarian Surgery. Bone fusion. Pt with artificial disc. 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 Patient has 4screws/2rods/2plates on back - Anesthesia Hx Anesthesia: Yes Hx Anesthesia Reactions: No Hx Malignant Hyperthermia: No - Suicidal Assessment Feels Threatened In Home Enviroment: No Family/Social History - Physician Review Nursing Documentation Reviewed: Yes Family/Social History: Unknown Family HX Smoking Status: Light Smoker < 10 Cigarettes Daily Hx Alcohol Use: No Hx Substance Use: No Hx Substance Use Treatment: No Allergies/Home Meds Allergies/Adverse Reactions: Allergies penicillin V Allergy (Verified 05/25/17 20:22) RASH Review of Systems - Physician Review All systems were reviewed & negative as marked: Yes - Review of Systems Constitutional: Normal Eyes: Normal ENT: Normal Respiratory: Normal Cardiovascular: Normal Gastrointestinal: Abdominal Pain. absent: Constipation, Diarrhea, Nausea, Vomiting, Hematochezia, Hematemesis Genitourinary Female: Normal Musculoskeletal: Normal Skin: Normal Neurological: Dizziness. absent: Headache, Focal Weakness, Speech Changes, Facial Droop Endocrine: Normal Hemo/Lymphatic: Normal Psychiatric: Normal Physical Exam Vital Signs Reviewed: Yes Vital Signs Temp Pulse Resp BP Pulse Ox 05/26/17 00:00 98.2 F 80 18 137/70 100 05/25/17 22:17 98.4 F 70 17 128/72 100 05/25/17 20:26 98.1 F 89 18 131/93 H 99 05/25/17 20:23 98.1 F 85 18 131/93 H 99 Temperature: Afebrile Blood Pressure: Normal Pulse: Regular Respiratory Rate: Normal Appearance: Positive for: Well-Appearing, Non-Toxic, Comfortable Pain Distress: None Mental Status: Positive for: Alert and Oriented X 3 - Systems Exam Head: Present: Atraumatic, Normocephalic Pupils: Present: PERRL Extroacular Muscles: Present: EOMI Conjunctiva: Present: Normal Mouth: Present: Moist Mucous Membranes Neck: Present: Normal Range of Motion Respiratory/Chest: Present: Clear to Auscultation, Good Air Exchange. No: Respiratory Distress, Accessory Muscle Use Cardiovascular: Present: Regular Rate and Rhythm, Normal S1, S2. No: Murmurs Abdomen: Present: Tenderness (RUQ tenderness), Normal Bowel Sounds, Guarding ( Voluntary), Other (Soft). No: Distention, Peritoneal Signs, Rebound, McBurney' s Point Tender, Rovsing's Sign Present Back: Present: Normal Inspection Upper Extremity: Present: Normal Inspection. No: Cyanosis, Edema Lower Extremity: Present: Normal Inspection. No: Edema Neurological: Present: GCS=15, CN II-XII Intact, Speech Normal, Motor Func Grossly Intact, Normal Sensory Function, Normal Cerebellar Funct, Norm Deep Tendon Reflexes, Gait Normal, Memory Normal, Normal 2Pt Descrimination, Other ( No focal neurological deficit) Skin: Present: Warm, Dry, Normal Color. No: Rashes Psychiatric: Present: Alert, Oriented x 3, Normal Insight, Normal Concentration Medical Decision Making ED Course and Treatment: 05/26/17 00:14 Pt was neurologically intact and hemodynamically stable in ED. Her pain improved in ED with medication. She was afebrile. She notes that she is eating and drinking well. Lab was unremarkable. Large blood with small leukocyte was noted . PT will be treated with Macrobid for UTI. The result was DW the patient and she was advised to f/u with a urologist secondary to the large blood in her urine. IMPRESSION: 1. Possible mild enteritis. Clinical correlation is needed. 2. Incidental/non-acute findings are described above. Abdominal CT as noted above is nonspecific. Pain could be secondary to gastritis. she will be DC home with caralfate rx and referred to a GI - Lab Interpretations Lab Results: 05/25/17 21:00 05/25/17 21:00 Lab Results 05/25/17 21:00: Sodium 136, Potassium 3.5 L, Chloride 101, Carbon Dioxide 27, Anion Gap 12, BUN 14, Creatinine 0.9, Est GFR ( Amer) > 60, Est GFR (Non- Af Amer) > 60, Random Glucose 130 H, Calcium 9.9, Total Bilirubin 0.3, AST 33, ALT 71 H, Alkaline Phosphatase 119, Lactate Dehydrogenase 447, Total Creatine Kinase 150, Troponin I < 0.01, Total Protein 7.7, Albumin 4.2, Globulin 3.5, Albumin/Globulin Ratio 1.2, Lipase 78 05/25/17 21:00: Urine Color Yellow, Urine Appearance Sl cloudy, Urine pH 5.5, Ur Specific [place] 1.025, Urine Protein Negative, Urine Glucose (UA) Negative, Urine Ketones Negative, Urine Blood Large H, Urine Nitrate Negative, Urine Bilirubin Negative, Urine Urobilinogen 0.2, Ur Leukocyte Esterase Small H, Urine RBC 2 - 5, Urine WBC 10 - 15, Ur Epithelial Cells 6 - 8, Urine Bacteria Mod 05/25/17 21:00: PT 11.9, INR 1.04, APTT 34.8 05/25/17 21:00: WBC 9.1, RBC 4.19, Hgb 13.0, Hct 39.1, MCV 93.3, MCH 31.0, MCHC 33.2, RDW 14.6 H, Plt Count 262, MPV 10.4, Gran % 62.5, Lymph % (Auto) 30.7, [place] % (Auto) 5.3, Eos % (Auto) 1.4 L, Baso % (Auto) 0.1, Gran # 5.69, Lymph # 2.8, [place] # 0.5, Eos # 0.1, Baso # 0.01 - RAD Interpretation Radiology Orders: 05/25/17 20:39 ABD & PELVIS W/O PO OR IV CONT [CT] Stat - Medication Orders Current Medication Orders: Discontinued Medications Famotidine (Pepcid) 20 mg IVP STAT STA Stop: 05/25/17 20:40 Last Admin: 05/25/17 21:04 Dose: 20 mg IVP Administration Document 05/25/17 21:04 AB (Rec: 05/25/17 21:04 AB [facility] [id number]) Charges for Administration # of IVP Administrations 1 Sodium Chloride (Sodium Chloride 0.9%) 1,000 mls @ 1,000 mls/hr IV .Q1H STA Stop: 05/25/17 21:38 Last Admin: 05/25/17 21:04 Dose: 1,000 mls/hr eMAR Start Stop Document 05/25/17 21:04 AB (Rec: 05/25/17 21:04 AB [facility] [id number]) Intravenous Solution Start Date 05/25/17 Start Time 21:04 End Date 05/25/17 End time 22:04 Total Infusion Time 60 Meclizine HCl (Antivert) 25 mg PO STAT STA Stop: 05/25/17 20:42 Last Admin: 05/25/17 21:21 Dose: 25 mg Metoclopramide HCl (Reglan) 10 mg IVP STAT STA Stop: 05/25/17 20:40 Last Admin: 05/25/17 21:04 Dose: 10 mg IVP Administration Document 05/25/17 21:04 AB (Rec: 05/25/17 21:04 AB [facility] [id number]) Charges for Administration # of IVP Administrations 1 Morphine Sulfate (Morphine) 4 mg IVP STAT STA Stop: 05/25/17 22:35 Last Admin: 05/25/17 22:40 Dose: 4 mg MAR Pain Assessment Document 05/25/17 22:40 AB (Rec: 05/25/17 22:40 AB [id number]) Pain Reassessment Is this a pain reassessment? Yes Sleep Is patient sleeping during reassessment? No Presence of Pain Presence of Pain Yes Location Pain Location Body Site Abdomen Description Description Constant Intensity of Pain at present 9 Aggravating Factors ADL's Alleviating Factors/Management Medication Techniques Alleviating Factors Medication IVP Administration Document 05/25/17 22:40 AB (Rec: 05/25/17 22:40 AB [facility] [id number]) Charges for Administration # of IVP Administrations 1 Re-Assess: MAR Pain Assessment Document 05/25/17 23:40 AB (Rec: 05/26/17 00:12 AB [facility] [id number]) Pain Reassessment Is this a pain reassessment? Yes Sleep Is patient sleeping during reassessment? No Presence of Pain Presence of Pain No Disposition/Present on Arrival - Present on Arrival Any Indicators Present on Arrival: No History of DVT/PE: No History of Uncontrolled Diabetes: No Urinary Catheter: No History of Decub. Ulcer: No History Surgical Site Infection Following: None - Disposition Have Diagnosis and Disposition been Completed?: Yes Diagnosis: Abdominal pain, Dizziness, UTI (urinary tract infection) Disposition: HOME/ ROUTINE Disposition Time: 00:25 Patient Plan: Discharge Condition: STABLE Discharge Instructions (ExitCare): Urinary Tract Infection in Women (ED), Abdominal Pain (ED) Additional Instructions: Follow up with your Doctor/Urologist/Occ Med Physician Return to ED for any new or worsening symptoms Prescriptions: Meclizine [Meclizine*] 25 mg PO Q6 #12 tab Nitrofurantoin Macrocrystals [Macrobid] 100 mg PO BID #14 cap Sucralfate [Carafate] 1 gm PO TID #21 tab Referrals: [facility] at [facility] [Outside] - Follow up with primary Forms: [email or web address] (Bulgarian), WORK NOTE
[2017-05-25 22:02] LABS: INR 1.04 (0.93-1.08); PROTHROMBIN TIME 11.9 SECONDS (9.4-12.5)
[2017-05-25 22:03] LABS: PARTIAL THROMBOPLASTIN TIME 34.8 Seconds (25.1-36.5)
[2017-05-25 22:05] LABS: ALB/GLOB RATIO 1.2 (1.1-1.8); ALBUMIN 4.2 g/dL (3.0-4.8); ALT/SGPT 71 U/L (7-56); AST/SGOT 33 U/L (14-36); BLOOD UREA NITROGEN 14 mg/dL (7-21); CALCIUM 9.9 mg/dL (8.4-10.5); GFR AFRICAN-AMERICAN > 60; GFR NON-AFRICAN AMERICAN > 60; LIPASE 78 U/L (23-300)
[2017-05-25 22:16] LABS: TROPONIN I < 0.01 ng/mL
[2017-05-25] MEDS ORDERED: Morphine 4 mg/ml ISec IVP STA (22:34)
[2017-05-25 22:53] VITALS: BMI 35.2
--- NOTE | 2017-05-25 23:57 | CT ---
EXAM: CT Abdomen and Pelvis Without Intravenous Contrast CLINICAL HISTORY: 51 years old, female; Pain; Abdominal pain; Localized; Lower; Prior surgery; Surgery date: 6+ months; Surgery type: HX cholecystectomy, HX appendectomy, HX spinal surgery; Patient HX: HX of prior ovarian ca. ; Additional info: Ruq pain TECHNIQUE: Axial computed tomography images of the abdomen and pelvis without intravenous contrast. All CT scans at this facility use one or more dose reduction techniques, viz.: automated exposure control; ma/kV adjustment per patient size (including targeted exams where dose is matched to indication; i.e. head); or iterative reconstruction technique. Coronal and sagittal reformatted images were created and reviewed. COMPARISON: CT - ABD PELVIS W/O PO OR IV CONT 2016-07-20 19:36 FINDINGS: Lower thorax: Minimal atelectasis. ABDOMEN: Liver: Unremarkable. Gallbladder and bile ducts: Cholecystectomy. No significant ductal dilation. Pancreas: Unremarkable. No ductal dilation. Spleen: No splenomegaly. Adrenals: No mass. Kidneys and ureters: No renal calculi. No hydronephrosis. Stomach and bowel: Apparent mild mural/fold thickening vs underdistention of few jejunal loops. No associated inflammatory stranding. No obstruction. Appendix: Normal caliber. No inflammation. PELVIS: Bladder: Unremarkable. No stones. Reproductive: Unremarkable as visualized. ABDOMEN and PELVIS: Intraperitoneal space: No significant fluid collection. No free air. Bones/joints: Postsurgical changes of lumbar spine. No acute fracture. Soft tissues: Unremarkable. Vasculature: Unremarkable. No aneurysm. Lymph nodes: No pathologically enlarged lymph nodes. IMPRESSION: 1. Possible mild enteritis. Clinical correlation is needed. 2. Incidental/non-acute findings are described above.
[2017-05-26 00:10] VITALS: O2SAT 100
[2017-05-26 00:11] VITALS: BP 137/70; PULSE 80; RESP 18; TEMP 98.2
--- NOTE | 2017-05-26 10:12 | CARD ---
APPROVED REPORT EKG Measurement Heart [id number] <Conclusion> Normal sinus rhythm Normal ECG No change
== END 2017-05-26 00:44 | disposition home or self-care (01) ==
LOC: ED 20:17
DX: N39.0 Urinary tract infection, site not specified (principal); R42 Dizziness and giddiness; R10.11 Right upper quadrant pain; F17.210 Nicotine dependence, cigarettes, uncomplicated
CPT/HCPCS: 74176; 80053; 81001; 82550; 83615; 83690; 84484; 85025; 85610; 85730; 87086; 87181; 93005; 96361; 96374; 96375; 99283; J2270; J2765; J7040

== ENCOUNTER 2017-06-15 17:27 | Emergency (ER) | payer MEDICAID ==
[2017-06-15 18:00] VITALS: BMI 37.3
[2017-06-15 18:04] VITALS: RESP 18; TEMP 98.4
[2017-06-15 19:01] LABS: URINE BILIRUBIN NEGATIVE (NEGATIVE); URINE BLOOD LARGE (NEGATIVE); URINE GLUCOSE (UA) NEGATIVE (NEGATIVE); URINE LEUKOCYTE ESTERASE SMALL Leu/uL (NEGATIVE); URINE NITRATE POSITIVE (NEGATIVE); URINE PROTEIN NEGATIVE mg/dL (<30 mg/dL); URINE UROBILINOGEN 0.2 E.U./dL (<1 E.U./dL)
[2017-06-15 19:02] LABS: URINE APPEARANCE SL CLOUDY (CLEAR); URINE COLOR YELLOW (YELLOW)
[2017-06-15 19:09] LABS: URINE BACTERIA MANY (NEG)
[2017-06-15 19:12] LABS: HEMOGLOBIN 13.2 g/dL (12.0-16.0); MEAN CELL VOLUME 93.2 fl (80.0-105.0); MEAN CORPUSCULAR HGB CONC 33.2 g/dl (31.0-37.0); MEAN PLATELET VOLUME 10.3 fl (7.0-11.0); RBC 4.26 10^6/uL (3.5-6.1); RED CELL DISTRIBUTION WIDTH 14.7 % (11.5-14.5); WHITE BLOOD COUNT 6.4 10^3/ul (4.5-11.0)
[2017-06-15] MEDS ORDERED: Oxycodone/Acetaminophen 5/325 mg Tab PO STA ×2 (19:27→21:56)
--- NOTE | 2017-06-15 19:37 | ED PDOC ---
Arrival/HPI - General Chief Complaint: Dizziness/Lightheaded Time Seen by Provider: 06/15/17 18:10 Historian: Patient - History of Present Illness Narrative History of Present Illness (Text): 06/15/17 19:27 A 51 year old female, whose past medical history includes CVA(October 2016, took 1 week to recover), ovarian cancer (had many years ago, currently in remission), and chronic back pain, presents to the emergency department complaining of headache and dizziness. She states while at work, she began experiencing chief complaints. Patient reports taking Valium and Percocet for chronic back pain but has not done so in the past 3 months. Notes pain shoots up towards neck and has two bumps on head. Patient is concerned if these symptoms are causing her complaints. No PMD Past Medical History - Provider Review Nursing Documentation Reviewed: Yes - Past History Past History: No Previous - Infectious Disease Hx of Infectious Diseases: None - Tetanus Immunization Tetanus Immunization: Unknown - Cardiac Hx Cardiac Disorders: No - Pulmonary Hx Chronic Obstructive Pulmonary Disease (COPD): Yes (smoker) - Neurological HX Cerebrovascular Accident: Yes (10-19-16 LEFT SIDED) - HEENT Hx HEENT Disorder: Yes - Renal Hx Renal Failure: No - Endocrine/Metabolic Hx Diabetes Mellitus Type 1: No Hx Diabetes Mellitus Type 2: No Hx Hypothyroidism: No - Hematological/Oncological Hx Blood Disorders: Yes Hx Cancer: Yes (ovarian ca -TOOK CHEMO PILLS.DENIES HAVING RADIATION.) - Integumentary Hx Dermatological Disorder: No - Musculoskeletal/Rheumatological Hx Arthritis: No - Gastrointestinal Hx Gastroesophageal Reflux: No - Genitourinary/Gynecological Hx Genitourinary Disorders: No Other/Comment: Ovarian CA - Psychiatric Hx Psychophysiologic Disorder: Yes (SMOKES 5 CIG A DAY) Hx Depression: No Hx Substance Use: No - Surgical History Hx Cholecystectomy: Yes Other/Comment: Ovarian Surgery. Bone fusion. Pt with artificial disc. 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 Patient has 4screws/2rods/2plates on back - Anesthesia Hx Anesthesia: No Hx Anesthesia Reactions: No Hx Malignant Hyperthermia: No - Suicidal Assessment Feels Threatened In Home Enviroment: No Family/Social History - Physician Review Nursing Documentation Reviewed: Yes Family/Social History: No Known Family HX Smoking Status: Light Smoker < 10 Cigarettes Daily Hx Alcohol Use: No Hx Substance Use: No Hx Substance Use Treatment: No Allergies/Home Meds Allergies/Adverse Reactions: Allergies penicillin V Allergy (Verified 05/25/17 20:22) RASH Review of Systems - Physician Review All systems were reviewed & negative as marked: Yes - Review of Systems Musculoskeletal: Back Pain (chronic), Neck Pain (radiating from chronic back pain) Neurological: Headache, Dizziness Physical Exam Vital Signs Reviewed: Yes Vital Signs Temp Pulse Resp BP Pulse Ox 06/15/17 17:28 98.4 F 86 18 121/85 97 Temperature: Afebrile Blood Pressure: Normal Pulse: Regular Respiratory Rate: Normal Appearance: Positive for: Well-Appearing Pain Distress: None Mental Status: Positive for: Alert and Oriented X 3 - Systems Exam Head: Present: Atraumatic, Normocephalic Pupils: Present: PERRL Extroacular Muscles: Present: EOMI Conjunctiva: Present: Normal Mouth: Present: Moist Mucous Membranes Neck: Present: Normal Range of Motion Respiratory/Chest: Present: Clear to Auscultation, Good Air Exchange. No: Respiratory Distress, Accessory Muscle Use Cardiovascular: Present: Regular Rate and Rhythm, Normal S1, S2. No: Murmurs Abdomen: Present: Normal Bowel Sounds. No: Tenderness, Distention, Peritoneal Signs Back: Present: Normal Inspection Upper Extremity: Present: Normal Inspection. No: Cyanosis, Edema Lower Extremity: Present: Normal Inspection. No: Edema Neurological: Present: GCS=15, CN II-XII Intact, Speech Normal Skin: Present: Warm, Dry, Normal Color. No: Rashes Psychiatric: Present: Alert, Oriented x 3, Normal Insight, Normal Concentration Medical Decision Making ED Course and Treatment: 06/15/17 19:30 Impression: 51 year old female with headache and dizziness. No acute findings on physical examination. Plan: -- EKG -- Head CT -- Chest X-ray -- Labs -- Valium -- Antivert -- Zofran -- Percocet -- Urine Culture -- Reassess and disposition Prior Visits: Notes and results from previous visits were reviewed. Patient was last seen in the emergency department on 05/25/2017 for intermittent RUQ abdominal pain. Patient was discharged home. Progress Notes: EKG: Ordered, reviewed, and independently interpreted the EKG. Rate : 73 BPM Rhythm : NSR Interpretation : No ST-segment elevations or depressions, no T-wave inversions, normal intervals. Comparison : No previous EKG for comparison. CT Head Without Intravenous Contrast Dictated and Authenticated by: Torey Montenegro MD 06/15/2017 9:37 PM Eastern Time ([place] & [place]) IMPRESSION: 1. No definite acute intracranial abnormality. 2. Incidental/non-acute findings are described above. Thank you for allowing us to participate in the care of your patient. - Lab Interpretations Lab Results: 06/15/17 18:55 06/15/17 18:55 Lab Results 06/15/17 18:55: Sodium 143, Potassium 3.7, Chloride 108 H, Carbon Dioxide 25, Anion Gap 14, BUN 15, Creatinine 1.0, Est GFR ( Amer) > 60, Est GFR (Non- Af Amer) 59, Random Glucose 104, Calcium 9.5, Phosphorus 2.8, Magnesium 1.8, Total Bilirubin 0.4, AST 39 H, ALT 79 H, Alkaline Phosphatase 103, Lactate Dehydrogenase 579, Total Creatine Kinase 146, Troponin I < 0.01, Total Protein 7.3, Albumin 3.9, Globulin 3.4, Albumin/Globulin Ratio 1.2, Lipase 79 06/15/17 18:55: WBC 6.4 D, RBC 4.26, Hgb 13.2, Hct 39.7, MCV 93.2, MCH 31.0, MCHC 33.2, RDW 14.7 H, Plt Count 232, MPV 10.3 06/15/17 18:45: Urine Color Yellow, Urine Appearance Sl cloudy, Urine pH 6.0, Ur Specific [place] 1.025, Urine Protein Negative, Urine Glucose (UA) Negative, Urine Ketones Trace H, Urine Blood Large H, Urine Nitrate Positive H, Urine Bilirubin Negative, Urine Urobilinogen 0.2, Ur Leukocyte Esterase Small H, Urine RBC 1 - 3, Urine WBC 2 - 5, Ur Epithelial Cells 1 - 3, Urine Bacteria Many - RAD Interpretation Radiology Orders: 06/15/17 19:27 HEAD W/O CONTRAST [CT] Stat CHEST TWO VIEWS (PA/LAT) [RAD] Stat - Medication Orders Current Medication Orders: Discontinued Medications Diazepam (Valium) 5 mg PO ONCE ONE PRN Reason: Protocol Stop: 06/15/17 19:28 Last Admin: 06/15/17 19:56 Dose: 5 mg Levofloxacin/Dextrose (Levaquin 750mg) 750 mg IVPB ONCE ONE Stop: 06/15/17 20:13 Last Admin: 06/15/17 21:04 Dose: 750 mg eMAR Start Stop Document 06/15/17 21:04 AD (Rec: 06/15/17 21:04 AD [id number]) Intravenous Solution Start Date 06/15/17 Start Time 21:04 Meclizine HCl (Antivert) 25 mg PO STAT STA Stop: 06/15/17 19:28 Last Admin: 06/15/17 19:56 Dose: 25 mg Ondansetron HCl (Zofran Odt) 8 mg PO STAT STA Stop: 06/15/17 19:28 Last Admin: 06/15/17 19:56 Dose: 8 mg Oxycodone/Acetaminophen (Percocet 5/325 Mg Tab) 1 tab PO STAT STA Stop: 06/15/17 19:28 Last Admin: 06/15/17 19:56 Dose: 1 tab MAR Pain Assessment Document 06/15/17 19:56 AD (Rec: 06/15/17 19:56 AD [id number]) Pain Reassessment Is this a pain reassessment? No Presence of Pain Presence of Pain Yes Description Intensity of Pain at present 8 Pain Behavior Facial Grimacing Oxycodone/Acetaminophen (Percocet 5/325 Mg Tab) 1 tab PO STAT STA Stop: 06/15/17 21:57 Last Admin: 06/15/17 22:17 Dose: 1 tab MAR Pain Assessment Document 06/15/17 22:17 AD (Rec: 06/15/17 22:17 AD [id number]) Pain Reassessment Is this a pain reassessment? No Presence of Pain Presence of Pain Yes Description Intensity of Pain at present 7 Pain Behavior Facial Grimacing - Scribe Statement The provider has reviewed the documentation as recorded by the Elodia Bowling Provider Scribe Attestation: All medical record entries made by the Elodia were at my direction and personally dictated by me. I have reviewed the chart and agree that the record accurately reflects my personal performance of the history, physical exam, medical decision making, and the department course for this patient. I have also personally directed, reviewed, and agree with the discharge instructions and disposition. Disposition/Present on Arrival - Present on Arrival Any Indicators Present on Arrival: No History of DVT/PE: No History of Uncontrolled Diabetes: No Urinary Catheter: No History of Decub. Ulcer: No History Surgical Site Infection Following: None - Disposition Have Diagnosis and Disposition been Completed?: Yes Diagnosis: UTI (urinary tract infection), Chronic pain disorder, Sebaceous cyst, Dizziness Disposition: HOME/ ROUTINE Disposition Time: 21:50 Patient Plan: Discharge Patient Problems: Current Active Problems Problem Status Onset UTI (urinary tract infection) Acute Chronic pain disorder Acute Condition: GOOD Discharge Instructions (ExitCare): Urinary Tract Infection in Women (ED), Dizziness (ED), Chronic Back Pain (ED) Additional Instructions: Karly - Please follow up with your doctor. Levaquin is for the Urinary Tract Infection. Antivert is for Dizziness. Motrin is for pain and inflammation. You will have to get Percocet and Valium from your regular physician(s). Return to us if worse or new symptoms. [place]- Dr. Roger Newberry Prescriptions: Ibuprofen [Motrin Tab] 800 mg PO TID #30 tab Levofloxacin [Levaquin] 750 mg PO DAILY #10 tablet Meclizine [Antivert] 12.5 mg PO TID #30 tab Referrals: Oli Montana, [Primary Care Provider] - Follow up with primary Forms: [employer] (Chadian), WORK NOTE
[2017-06-15 19:38] LABS: TROPONIN I < 0.01 ng/mL
[2017-06-15 19:40] LABS: ALB/GLOB RATIO 1.2 (1.1-1.8); ALBUMIN 3.9 g/dL (3.0-4.8); ALT/SGPT 79 U/L (7-56); AST/SGOT 39 U/L (14-36); BLOOD UREA NITROGEN 15 mg/dL (7-21); CALCIUM 9.5 mg/dL (8.4-10.5); GFR AFRICAN-AMERICAN > 60; GFR NON-AFRICAN AMERICAN 59; LIPASE 79 U/L (23-300); MAGNESIUM 1.8 mg/dL (1.7-2.2)
[2017-06-15] MEDS ORDERED: levoFLOXacin 750 mg in D5W 150 ML BAG IVPB ONE (20:12)
--- NOTE | 2017-06-15 21:37 | CT ---
EXAM: CT Head Without Intravenous Contrast CLINICAL HISTORY: 51 years old, female; Signs and symptoms; Dizziness; Additional info: Dizzy TECHNIQUE: Axial computed tomography images of the head/brain without intravenous contrast. All CT scans at this facility use one or more dose reduction techniques, viz.: automated exposure control; ma/kV adjustment per patient size (including targeted exams where dose is matched to indication; i.e. head); or iterative reconstruction technique. Coronal and sagittal reformatted images were created and reviewed. COMPARISON: CTA HEAD NECK BUNDLE 2016-10-19 17:41 FINDINGS: Brain: No intracranial hemorrhage. No mass. No definite edema. Ventricles: No hydrocephalus. Bones/joints: No acute fracture. Soft tissues: Probable sebaceous cysts within scalp. Vasculature: Minimal atherosclerotic disease of intracranial arteries. Sinuses: Scattered minimal mucosal thickening. Mastoid air cells: No mastoid effusion. Orbits: Unremarkable as visualized. Sella: Flattening of pituitary gland, stable. IMPRESSION: 1. No definite acute intracranial abnormality. 2. Incidental/non-acute findings are described above.
[2017-06-15 22:29] VITALS: BP 122/89; PULSE 89; O2SAT 100
--- NOTE | 2017-06-16 09:17 | RAD ---
HISTORY: Dizzy COMPARISON: Comparison is made to 10/19/2016 TECHNIQUE: Chest PA and lateral FINDINGS: LUNGS: No active pulmonary disease. PLEURA: No significant pleural effusion identified. No pneumothorax apparent. CARDIOVASCULAR: Normal. OSSEOUS STRUCTURES: No significant abnormalities. VISUALIZED UPPER ABDOMEN: Normal. OTHER FINDINGS: None. IMPRESSION: No active disease.
--- NOTE | 2017-06-16 23:51 | CARD ---
APPROVED REPORT EKG Measurement Heart [id number] <Conclusion> Poor data quality, interpretation may be adversely affected Normal sinus rhythm Normal ECG
== END 2017-06-15 22:31 | disposition home or self-care (01) ==
LOC: ED 17:27
DX: N39.0 Urinary tract infection, site not specified (principal); R42 Dizziness and giddiness; L72.3 Sebaceous cyst; G89.4 Chronic pain syndrome

== ENCOUNTER 2017-08-20 18:54 | Emergency (ER) | payer MEDICAID ==
[2017-08-20 19:20] VITALS: BMI 34.4
[2017-08-20] MEDS ORDERED: Lidocaine 1% Inj (20ml) ONE (19:31)
[2017-08-20 19:32] VITALS: BP 153/98; PULSE 85; RESP 16; TEMP 98.6; O2SAT 96
--- NOTE | 2017-08-20 19:37 | ED PDOC ---
Arrival/HPI - General Chief Complaint: Finger,Hand,&Wrist Time Seen by Provider: 08/20/17 19:19 Historian: Patient, Spouse - History of Present Illness Narrative History of Present Illness (Text): u were treated in the ED today for doing a lot of typing and having trigger finger episodes in the past and today having a flare-up of the right 2nd finger which due to flexing is creating a swelling type sensation but otherwise without any trauma/injury/nausea/vomiting/headache/dizziness/difficulty breathing/chest pain/abdomen pain/numbness/tingling/loss of limb function/pain with urination. 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) - HEENT Hx HEENT Disorder: Yes - Renal Hx Renal Failure: No - Endocrine/Metabolic Hx Diabetes Mellitus Type 1: No Hx Diabetes Mellitus Type 2: No Hx Hypothyroidism: No - Hematological/Oncological Hx Blood Disorders: Yes Hx Cancer: Yes (ovarian ca -TOOK CHEMO PILLS.DENIES HAVING RADIATION.) - Integumentary Hx Dermatological Disorder: No - Musculoskeletal/Rheumatological Hx Arthritis: No - Gastrointestinal Hx Gastroesophageal Reflux: No - Genitourinary/Gynecological Hx Genitourinary Disorders: No Other/Comment: Ovarian CA - Psychiatric Hx Psychophysiologic Disorder: Yes (SMOKES 5 CIG A DAY) Hx Depression: No Hx Substance Use: No - Surgical History Hx Cholecystectomy: Yes Other/Comment: Ovarian Surgery. Bone fusion. Pt with artificial disc. 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 Patient has 4screws/2rods/2plates on back - Anesthesia Hx Anesthesia: No Hx Anesthesia Reactions: No Hx Malignant Hyperthermia: No - Suicidal Assessment Feels Threatened In Home Enviroment: No Family/Social History - Physician Review Nursing Documentation Reviewed: Yes Family/Social History: No Known Family HX Smoking Status: Light Smoker < 10 Cigarettes Daily Hx Alcohol Use: No Hx Substance Use: No Hx Substance Use Treatment: No Allergies/Home Meds Allergies/Adverse Reactions: Allergies penicillin V Allergy (Verified 08/20/17 19:44) RASH Home Medications: Home Meds Medication Instructions Recorded Confirmed No Known Home Med 08/20/17 08/20/17 Review of Systems - Review of Systems Constitutional: Normal Eyes: Normal ENT: Normal Respiratory: Normal Cardiovascular: Normal Gastrointestinal: Normal Genitourinary Female: Normal Musculoskeletal: Arthralgias, Joint Swelling Skin: Normal Neurological: Normal Endocrine: Normal Hemo/Lymphatic: Normal Psychiatric: Normal Physical Exam Vital Signs Reviewed: Yes Vital Signs Temp Pulse Resp BP Pulse Ox 08/20/17 19:00 98.6 F 85 16 153/98 H 96 Temperature: Afebrile Blood Pressure: Hypertensive Pulse: Regular Respiratory Rate: Normal Appearance: Positive for: Well-Appearing, Non-Toxic, Comfortable Pain Distress: None Mental Status: Positive for: Alert and Oriented X 3 - Systems Exam Head: Present: Atraumatic, Normocephalic Pupils: Present: PERRL Extroacular Muscles: Present: EOMI Conjunctiva: Present: Normal Ears: Present: Normal Mouth: Present: Moist Mucous Membranes Pharnyx: Present: Normal Nose (External): Present: Atraumatic Nose (Internal): Present: Normal Inspection Neck: Present: Normal Range of Motion Respiratory/Chest: Present: Clear to Auscultation, Good Air Exchange Cardiovascular: Present: Regular Rate and Rhythm Abdomen: No: Tenderness, Distention, Normal Bowel Sounds, Peritoneal Signs, Rebound, Guarding, McBurney's Point Tender, Rovsing's Sign Present, Hernias, Feeding Tubes, Ostomy Tubes, Mass/Organomegaly, Scars, Other Back: Present: Normal Inspection Upper Extremity: Present: Normal Inspection, Other (except for right 2nd finger flexed position without specific swelling and no redness/fluctuance/crepitus and no bony tenderness and othewise warm/sensation/pink/radial pulse positive) Lower Extremity: Present: Normal Inspection Neurological: Present: GCS=15, CN II-XII Intact, Speech Normal, Motor Func Grossly Intact Skin: Present: Warm, Normal Color Psychiatric: Present: Alert, Oriented x 3, Normal Insight, Normal Concentration Medical Decision Making ED Course and Treatment: you were treated in the ED today for doing a lot of typing and having trigger finger episodes in the past and today having a flare-up of the right 2nd finger which due to flexing is creating a swelling type sensation but otherwise without any trauma/injury/nausea/vomiting/headache/dizziness/difficulty breathing/chest pain/abdomen pain/numbness/tingling/loss of limb function/pain with urination. You were otherwise breathing easily, pink moist lips, smiling and laughing and joking with your , good strength/sensation, alert/ oriented, walking easily, clear lungs, no abdomen tenderness, normal extremities except for right 2nd finger flexed position without specific swelling and no redness/fluctuance/crepitus and no bony tenderness and othewise warm/sensation/pink/radial pulse positiveno fever temp 98.6, stable heart rate 85, stable breathing rate 16, excellent oxygen level 96% room air, elevated blood pressure 153/98 which we recommend repeat in 2-3 days primary care office to determine further treatment, trigger finger numbing injection and reduction, splint placed, motrin, observation maintain splint till first clinic visit and thus discharged home with . 1. Recommend motrin as directed for inflammation reduction/pain control. 2. recommend follow-up primary care 2 days to review symptoms, referral to hand/orthopedics clinic to review your symptoms. 3. If any worsening pain, fever, chills, nausea, vomiting, difficulty breathing, numbness, loss of limb function, pain with urination or any medical condition then return to the ED. 08/20/17 19:48 procedure note: right 2nd finger prepped, local anesthesia block and reduction and post-reduction neurovasc intact, splinted and post-splint neurovasc intact. 08/20/17 19:58 Reassessment Condition: Re-examined, Improved - Medication Orders Current Medication Orders: Discontinued Medications Ibuprofen (Motrin Tab) 800 mg PO STAT STA Stop: 08/20/17 19:33 Last Admin: 08/20/17 19:41 Dose: 800 mg MAR Pain/Vitals Document 08/20/17 19:41 RD (Rec: 08/20/17 19:42 RD [id number]) Pain Reassessment Is This A Pain ReAssessment? No Sleep Is patient sleeping during reassessment? No Presence of Pain Presence of Pain Yes Pain Scale Used Pain Scale Used Numeric Location Left, Right or Bilateral Right Pain Location Body Site Finger Disposition/Present on Arrival - Present on Arrival Any Indicators Present on Arrival: No History of DVT/PE: No History of Uncontrolled Diabetes: No Urinary Catheter: No History of Decub. Ulcer: No History Surgical Site Infection Following: None - Disposition Have Diagnosis and Disposition been Completed?: Yes Diagnosis: Trigger finger Disposition: HOME/ ROUTINE Disposition Time: 19:50 Patient Plan: Discharge Condition: IMPROVED Discharge Instructions (ExitCare): Trigger Finger (DC) Additional Instructions: u were treated in the ED today for doing a lot of typing and having trigger finger episodes in the past and today having a flare-up of the right 2nd finger which due to flexing is creating a swelling type sensation but otherwise without any trauma/injury/nausea/vomiting/headache/dizziness/difficulty breathing/chest pain/abdomen pain/numbness/tingling/loss of limb function/pain with urination. You were otherwise breathing easily, pink moist lips, smiling and laughing and joking with your , good strength/sensation, alert/ oriented, walking easily, clear lungs, no abdomen tenderness, normal extremities except for right 2nd finger flexed position without specific swelling and no redness/fluctuance/crepitus and no bony tenderness and othewise warm/sensation/pink/radial pulse positiveno fever temp 98.6, stable heart rate 85, stable breathing rate 16, excellent oxygen level 96% room air, elevated blood pressure 153/98 which we recommend repeat in 2-3 days primary care office to determine further treatment, trigger finger numbing injection and reduction, splint placed, motrin, observation maintain splint till first clinic visit and thus discharged home with . 1. Recommend motrin as directed for inflammation reduction/pain control. 2. recommend follow-up primary care 2 days to review symptoms, referral to hand/orthopedics clinic to review your symptoms. 3. If any worsening pain, fever, chills, nausea, vomiting, difficulty breathing, numbness, loss of limb function, pain with urination or any medical condition then return to the ED. Referrals: Catia Murguia MD [Primary Care Provider] - Follow up with primary Forms: [facility] (Japanese), WORK NOTE
== END 2017-08-20 20:10 | disposition home or self-care (01) ==
LOC: ED 18:54
DX: M65.321 Trigger finger, right index finger (principal)

== ENCOUNTER 2017-08-22 19:19 | Emergency (ER) | payer MEDICAID ==
[2017-08-22 19:19] VITALS: BMI 34.4
== END 2017-08-22 20:02 | disposition left against medical advice (07) ==
LOC: ED 19:19
DX: Z02.89 Encounter for other administrative examinations (principal); M79.603 Pain in arm, unspecified

== ENCOUNTER 2017-09-01 14:02 | Emergency (ER) | payer MEDICAID ==
[2017-09-01 14:08] VITALS: BMI 36.0
--- NOTE | 2017-09-01 15:38 | ED PDOC ---
Arrival/HPI - General Chief Complaint: Shortness Of Breath Time Seen by Provider: 09/01/17 14:26 Historian: Patient - History of Present Illness Narrative History of Present Illness (Text): you were treated in the ED today for hv of ovary cancer and who stated having difficulty breathing and dizziness/lightheadedness but otherwise without any nausea/vomiting/headache/dizziness/difficulty breathing/chest pain/abdomen pain/ numbness/tingling/loss of limb function/pain with urination. Time/Duration: 24 hours Symptom Onset: Gradual Symptom Course: Improving Severity Level: 2 Activities at Onset: Rest Context: Sitting Past Medical History - Provider Review Nursing Documentation Reviewed: Yes - Travel History Have you recently traveled outside [place] w/in the past 3 mons?: No - Past History Past History: No Previous - Infectious Disease Hx of Infectious Diseases: None - Tetanus Immunization Tetanus Immunization: Unknown - Cardiac Hx Cardiac Disorders: No - Pulmonary Hx Chronic Obstructive Pulmonary Disease (COPD): Yes (smoker) - Neurological HX Cerebrovascular Accident: Yes (10-19-16 LEFT SIDED) - HEENT Hx HEENT Disorder: Yes - Renal Hx Renal Failure: No - Endocrine/Metabolic Hx Diabetes Mellitus Type 1: No Hx Diabetes Mellitus Type 2: No Hx Hypothyroidism: No - Hematological/Oncological Hx Blood Disorders: Yes Hx Cancer: Yes (ovarian ca -TOOK CHEMO PILLS.DENIES HAVING RADIATION.) - Integumentary Hx Dermatological Disorder: No - Musculoskeletal/Rheumatological Hx Arthritis: No - Gastrointestinal Hx Gastroesophageal Reflux: No - Genitourinary/Gynecological Hx Genitourinary Disorders: No Other/Comment: Ovarian CA - Psychiatric Hx Psychophysiologic Disorder: Yes (SMOKES 5 CIG A DAY) Hx Substance Use: No - Surgical History Hx Cholecystectomy: Yes Other/Comment: Ovarian Surgery. Bone fusion. Pt with artificial disc. 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 Patient has 4screws/2rods/2plates on back - Anesthesia Hx Anesthesia: No Hx Anesthesia Reactions: No Hx Malignant Hyperthermia: No - Suicidal Assessment Feels Threatened In Home Enviroment: No Family/Social History - Physician Review Nursing Documentation Reviewed: Yes Family/Social History: No Known Family HX Smoking Status: Light Smoker < 10 Cigarettes Daily Hx Alcohol Use: No Hx Substance Use: No Hx Substance Use Treatment: No Allergies/Home Meds Allergies/Adverse Reactions: Allergies penicillin V Allergy (Verified 08/20/17 19:44) RASH Home Medications: Home Meds Medication Instructions Recorded Confirmed Albuterol Sulfate [Ventolin Hfa] 1 puff IH PRN PRN 09/01/17 09/01/17 Review of Systems - Review of Systems Constitutional: Normal Eyes: Normal ENT: Normal Respiratory: SOB Cardiovascular: Normal Gastrointestinal: Normal Genitourinary Female: Normal Musculoskeletal: Normal Skin: Normal Neurological: Dizziness Endocrine: Normal Hemo/Lymphatic: Normal Psychiatric: Normal Physical Exam Vital Signs Reviewed: Yes Vital Signs Temp Pulse Resp BP Pulse Ox 09/01/17 16:16 97.7 F 84 22 118/75 100 09/01/17 14:02 97.8 F 97 H 22 112/79 97 Temperature: Afebrile Blood Pressure: Normal Pulse: Regular Respiratory Rate: Normal Appearance: Positive for: Well-Appearing, Non-Toxic, Comfortable Pain Distress: None Mental Status: Positive for: Alert and Oriented X 3 - Systems Exam Head: Present: Atraumatic, Normocephalic Pupils: Present: PERRL Extroacular Muscles: Present: EOMI Conjunctiva: Present: Normal Ears: Present: Normal Mouth: Present: Moist Mucous Membranes Pharnyx: Present: Normal Nose (External): Present: Atraumatic Nose (Internal): Present: Normal Inspection Neck: Present: Normal Range of Motion Respiratory/Chest: Present: Clear to Auscultation, Good Air Exchange Cardiovascular: Present: Regular Rate and Rhythm Abdomen: No: Tenderness, Distention, Normal Bowel Sounds, Peritoneal Signs, Rebound, Guarding, McBurney's Point Tender, Rovsing's Sign Present, Hernias, Feeding Tubes, Ostomy Tubes, Mass/Organomegaly, Scars, Other Back: Present: Normal Inspection Upper Extremity: Present: Normal Inspection Lower Extremity: Present: Normal Inspection Neurological: Present: GCS=15, CN II-XII Intact, Speech Normal, Motor Func Grossly Intact Skin: Present: Warm, Normal Color Psychiatric: Present: Alert, Oriented x 3, Normal Insight, Normal Concentration Medical Decision Making ED Course and Treatment: you were treated in the ED today for hx TIA/stroke, of ovary cancer and who stated having difficulty breathing and dizziness/lightheadedness but otherwise without any nausea/vomiting/headache/dizziness/difficulty breathing/chest pain/ abdomen pain/numbness/tingling/loss of limb function/pain with urination. You were otherwise breathing easily, talking easily with family, good strength/ sensation, walking easily, clear lungs, no abdomen tenderness, no fever temp 97.8, stable heart rate 97, stable breathing rate 22, excellent oxygen level 97% room air, stable blood pressure 112/79 which we recommend repeat in 2-3 days primary care office to determine further treatment, you have blood tests mild infection count 11, stable blood level hemoglobin 13/platelets 274 stable chemistry, mildly high chloride 109 with iv fluids given, heart blood test negative less than 0.01, low risk of blood clot negative less than 200, urine test trace sign of leukocytes and macrobid given, urine test negative , radiology chest xray no acute, ct head partial sphenoid sinus opacification, ECG normal sinus rhythm, zofran, tylenol, macrobid, observation done in the ED with improvement, had a long discussion with Dr. Bliss neurosurgery who stated no acute findings at this time, had a long discussion with you/ regarding staying in the hospital further and cautioned for complications/ but you refused and stated you feel improved and wanted to go home, counselled to monitor symptoms and thus discharged home with family. 1. Recommend macrobid as directed for urine infection control. 2. Recommend tylenol as directed for pain. recommend percocet as directed for breakthrough pain. and dont' work/drive /drink alcohol when using. 3. Recommend follow-up primary care 1-2 days to review symptoms, referral to neurology and pulmonary/cardiology clinic to review your symptoms, referral to urology clinic for blood in urine to ensure no complications, referral to neurosurgery for partial empty sella/persistent mild asymmetry to the lateral ventricles left sided which is slightly larger than right and felt to be anatomic variant to ensure no complications, referral to ear nose throat clinic for partial opacification of the right chamber of sphenoid sinus/maxillary sinus polypoid thickening to ensure further care, referral to surgery for scalp soft tissue densities to ensure no complications/ cancer development. 4. If any worsening pain, fever, chills, nausea, vomiting, difficulty breathing, numbness, loss of limb function, pain with urination or any medical condition then return to the ED. 09/01/17 18:38 CT of head reviewed by radiologist, shows: FINDINGS: HEMORRHAGE: No acute parenchymal, subarachnoid or extra-axial hemorrhage. BRAIN: No evidence of large acute infarct. No obvious parenchymal nor extra-axial mass or collection seen on this noncontrast study. Ventricular and sulcal size are within range of normal for this patient's stated age. Partially empty sella again noted. VENTRICLES: No obstructive hydrocephalus. . Persistent mild asymmetry of the lateral ventricles left-sided which is slightly larger than the right felt to represent an anatomic variant. CALVARIUM: Calvarium intact. Re- demonstrated is a small approximately 11 mm x 7 mm elliptical shaped soft tissue density within the left posterior temporal scalp that could represent focal air granulation tissue or inspissated sebaceous cyst. There is a 2nd approximately 8 mm x 7.9 mm elliptical shaped soft tissue density within the right superior parietal scalp that contains some internal calcification. This may also represent a inspissated cyst or focus of granulation tissue. PARANASAL SINUSES: Interval development of partial opacification right chamber sphenoid sinus. Minor polypoid like mucosal thickening both maxillary antra. MASTOID AIR CELLS: Unremarkable as visualized. No inflammatory changes. OTHER FINDINGS: None. IMPRESSION: No acute intracranial hemorrhage. Interval development of partial opacification right chamber sphenoid sinus. 09/01/17 18:40 Chest X-ray reviewed by radiologist, shows: LUNGS: No active pulmonary disease. PLEURA: No significant pleural effusion identified, no pneumothorax apparent. CARDIOVASCULAR: No radiographic findings to suggest acute or significant cardiovascular disease. OSSEOUS STRUCTURES: No significant abnormalities. VISUALIZED UPPER ABDOMEN: Normal. OTHER FINDINGS: None. IMPRESSION: No active disease. No significant interval change compared to the prior examination(s). 09/01/17 18:46 09/01/17 18:58 Reassessment Condition: Re-examined, Improved - Lab Interpretations Lab Results: 09/01/17 15:55 09/01/17 15:55 Lab Results 09/01/17 16:05: Urine Color Yellow, Urine Appearance Sl cloudy, Urine pH 6.5, Ur Specific [place] 1.020, Urine Protein Negative, Urine Glucose (UA) Negative, Urine Ketones Negative, Urine Blood Moderate H, Urine Nitrate Negative, Urine Bilirubin Negative, Urine Urobilinogen 0.2, Ur Leukocyte Esterase Small H, Urine RBC 2 - 5, Urine WBC 1 - 3, Ur Epithelial Cells 4 - 5, Urine Bacteria Mod 09/01/17 15:55: PT 11.6, INR 1.02, APTT 31.5, D-Dimer, Quantitative < 200 09/01/17 15:55: Sodium 145, Potassium 3.8, Chloride 109 H, Carbon Dioxide 24, Anion Gap 15, BUN 15, Creatinine 0.9, Est GFR ( Amer) > 60, Est GFR (Non- Af Amer) > 60, Random Glucose 149 H, Calcium 9.9, Magnesium 1.9, Total Bilirubin 0.3, AST 36, ALT 55, Alkaline Phosphatase 117, Lactate Dehydrogenase 435, Total Creatine Kinase 150, Troponin I < 0.01, NT-Pro-B Natriuret Pep 17.8, Total Protein 7.6, Albumin 4.3, Globulin 3.3, Albumin/Globulin Ratio 1.3 09/01/17 15:55: WBC 11.7 H D, RBC 4.30, Hgb 13.3, Hct 38.9, MCV 90.5, MCH 30.9, MCHC 34.2, RDW 14.2, Plt Count 274, MPV 9.7, Gran % 67.6, Lymph % (Auto) 26.2, [place] % (Auto) 4.9, Eos % (Auto) 1.1 L, Baso % (Auto) 0.2, Gran # 7.89 H, Lymph # (Auto) 3.1, [place] # (Auto) 0.6, Eos # (Auto) 0.1, Baso # (Auto) 0.02 I have reviewed the lab results: Yes - RAD Interpretation Radiology Orders: 09/01/17 15:32 CHEST PORTABLE [RAD] Stat 09/01/17 16:46 HEAD W/O CONTRAST [CT] Stat Farmer General: Radiologist - EKG Interpretation Interpreted by ED Physician: Yes (NSR, flipped t waves avr, v1) Type: 12 lead EKG - Medication Orders Current Medication Orders: Sodium Chloride (Sodium Chloride 0.9%) 1,000 mls @ 100 mls/hr IV .Q10H BARRY Last Admin: 09/01/17 16:23 Dose: 100 mls/hr eMAR Start Stop Document 09/01/17 16:23 [email or web address] (Rec: 09/01/17 16:23 [email or web address] [id number]) Intravenous Solution Start Date 09/01/17 Start Time 16:23 End Date 09/01/17 Discontinued Medications Acetaminophen (Tylenol 325mg Tab) 975 mg PO STAT STA Stop: 09/01/17 15:33 Last Admin: 09/01/17 16:23 Dose: 975 mg MAR Pain/Vitals Document 09/01/17 16:23 [email or web address] (Rec: 09/01/17 16:24 [email or web address] [id number]) Pain Reassessment Is This A Pain ReAssessment? No Sleep Is patient sleeping during reassessment? No Presence of Pain Presence of Pain Yes Pain Scale Used Pain Scale Used Numeric Location Pain Location Body Insolvency Practitioner Description Constant Intensity 7 Scale Used Numeric Pain Behavior Facial Grimacing Aggravating Factors Changing Position Alleviating Factors Medication Ondansetron HCl (Zofran Odt) 4 mg PO STAT STA Stop: 09/01/17 15:34 Last Admin: 09/01/17 16:24 Dose: Not Given Non-Admin Reason: Patient Refused Oxycodone/Acetaminophen (Percocet 5/325 Mg Tab) 1 tab PO STAT STA Stop: 09/01/17 17:27 Last Admin: 09/01/17 17:50 Dose: 1 tab MAR Pain Assessment Document 09/01/17 17:50 [email or web address] (Rec: 09/01/17 17:50 [email or web address] [id number]) Pain Reassessment Is this a pain reassessment? No Sleep Is patient sleeping during reassessment? No Presence of Pain Presence of Pain Yes Pain Scale Used Pain Scale Used Numeric Location Pain Location Body Insolvency Practitioner Description Description Constant Intensity of Pain at present 7 Pain Behavior Facial Grimacing Aggravating Factors Changing Position Alleviating Factors/Management Position Change Techniques Alleviating Factors Medication Disposition/Present on Arrival - Present on Arrival Any Indicators Present on Arrival: No History of DVT/PE: No History of Uncontrolled Diabetes: No Urinary Catheter: No History of Decub. Ulcer: No History Surgical Site Infection Following: None - Disposition Have Diagnosis and Disposition been Completed?: Yes Diagnosis: Headache, UTI (urinary tract infection) Disposition: HOME/ ROUTINE Disposition Time: 19:00 Patient Plan: Discharge Condition: IMPROVED Discharge Instructions (ExitCare): Urinary Tract Infections in Adults, Headache , Adult (DC) Additional Instructions: you were treated in the ED today for hx TIA/stroke, of ovary cancer and who stated having difficulty breathing and dizziness/lightheadedness but otherwise without any nausea/vomiting/headache/dizziness/difficulty breathing/chest pain/ abdomen pain/numbness/tingling/loss of limb function/pain with urination. You were otherwise breathing easily, talking easily with family, good strength/ sensation, walking easily, clear lungs, no abdomen tenderness, no fever temp 97.8, stable heart rate 97, stable breathing rate 22, excellent oxygen level 97% room air, stable blood pressure 112/79 which we recommend repeat in 2-3 days primary care office to determine further treatment, you have blood tests mild infection count 11, stable blood level hemoglobin 13/platelets 274 stable chemistry, mildly high chloride 109 with iv fluids given, heart blood test negative less than 0.01, low risk of blood clot negative less than 200, urine test trace sign of leukocytes and macrobid given, urine test negative , radiology chest xray no acute, ct head partial sphenoid sinus opacification, ECG normal sinus rhythm, zofran, tylenol, macrobid, observation done in the ED with improvement, had a long discussion with Dr. Bliss neurosurgery who stated no acute findings at this time, had a long discussion with you/ regarding staying in the hospital further and cautioned for complications/ but you refused and stated you feel improved and wanted to go home, counselled to monitor symptoms and thus discharged home with family. 1. Recommend macrobid as directed for urine infection control. 2. Recommend tylenol as directed for pain. recommend percocet as directed for breakthrough pain. and dont' work/drive /drink alcohol when using. 3. Recommend follow-up primary care 1-2 days to review symptoms, referral to neurology and pulmonary/cardiology clinic to review your symptoms, referral to urology clinic for blood in urine to ensure no complications, referral to neurosurgery for partial empty sella/persistent mild asymmetry to the lateral ventricles left sided which is slightly larger than right and felt to be anatomic variant to ensure no complications, referral to ear nose throat clinic for partial opacification of the right chamber of sphenoid sinus/maxillary sinus polypoid thickening to ensure further care, referral to surgery for scalp soft tissue densities to ensure no complications/ cancer development. 4. If any worsening pain, fever, chills, nausea, vomiting, difficulty breathing, numbness, loss of limb function, pain with urination or any medical condition then return to the ED. Prescriptions: Nitrofurantoin Macrocrystals [Macrobid] 100 mg PO Q12 7 Days #14 cap oxyCODONE/Acetaminophen [Percocet 5/325 mg Tab] 1 tab PO DAILY 3 Days #3 tab Referrals: Catia Murguia MD [Primary Care Provider] - Follow up with primary Forms: [employer] (Irish)
[2017-09-01] MEDS ORDERED: Sodium Chloride 0.9% 1,000 ML IV SCH (15:45)
[2017-09-01 16:05] LABS: BASO # 0.02 K/mm3 (0.0-2.0); BASO % 0.2 % (0.0-3.0); EOS # 0.1 (0.0-0.7); EOS % 1.1 % (1.5-5.0); GRAN # 7.89 (1.4-6.5); GRAN % 67.6 % (50.0-68.0); HEMOGLOBIN 13.3 g/dL (12.0-16.0); LYMPH # 3.1 (1.2-3.4); LYMPH % 26.2 % (22.0-35.0); MEAN CELL VOLUME 90.5 fl (80.0-105.0); MEAN CORPUSCULAR HEMOGLOBIN 30.9 pg (25.0-35.0); MEAN CORPUSCULAR HGB CONC 34.2 g/dl (31.0-37.0); MEAN PLATELET VOLUME 9.7 fl (7.0-11.0); MONO # 0.6 (0.1-0.6); MONO % 4.9 % (1.0-6.0); RBC 4.3 10^6/uL (3.5-6.1); RED CELL DISTRIBUTION WIDTH 14.2 % (11.5-14.5); WHITE BLOOD COUNT 11.7 10^3/ul (4.5-11.0)
[2017-09-01 16:14] LABS: D DIMER < 200 ng/mL (0-243); INR 1.02 (0.93-1.08); PARTIAL THROMBOPLASTIN TIME 31.5 Seconds (25.1-36.5); PROTHROMBIN TIME 11.6 SECONDS (9.4-12.5)
[2017-09-01 16:16] LABS: PH,URINE 6.5 (4.7-8.0); URINE BILIRUBIN NEGATIVE (NEGATIVE); URINE BLOOD MODERATE (NEGATIVE); URINE GLUCOSE (UA) NEGATIVE (NEGATIVE); URINE LEUKOCYTE ESTERASE SMALL Leu/uL (NEGATIVE); URINE PROTEIN NEGATIVE mg/dL (<30 mg/dL); URINE UROBILINOGEN 0.2 E.U./dL (<1 E.U./dL)
[2017-09-01 16:17] LABS: ALB/GLOB RATIO 1.3 (1.1-1.8); ALBUMIN 4.3 g/dL (3.0-4.8); ALT/SGPT 55 U/L (7-56); AST/SGOT 36 U/L (14-36); BLOOD UREA NITROGEN 15 mg/dL (7-21); CALCIUM 9.9 mg/dL (8.4-10.5); GFR AFRICAN-AMERICAN > 60; GFR NON-AFRICAN AMERICAN > 60
[2017-09-01 16:18] LABS: URINE COLOR YELLOW (YELLOW)
[2017-09-01 16:20] VITALS: BP 118/75; PULSE 84; TEMP 97.7
[2017-09-01 16:29] LABS: B-TYPE NATRIURETIC PEPTIDE 17.8 pg/mL (0-450); TROPONIN I < 0.01 ng/mL
[2017-09-01 16:29] LABS: URINE APPEARANCE SL CLOUDY (CLEAR)
[2017-09-01 16:30] LABS: URINE BACTERIA MOD (NEG)
--- NOTE | 2017-09-01 16:38 | RAD ---
HISTORY: 51yoF, with sob COMPARISON: 06/15/2017 FINDINGS: LUNGS: No active pulmonary disease. PLEURA: No significant pleural effusion identified, no pneumothorax apparent. CARDIOVASCULAR: No radiographic findings to suggest acute or significant cardiovascular disease. OSSEOUS STRUCTURES: No significant abnormalities. VISUALIZED UPPER ABDOMEN: Normal. OTHER FINDINGS: None. IMPRESSION: No active disease. No significant interval change compared to the prior examination(s).
[2017-09-01] MEDS ORDERED: Oxycodone/Acetaminophen 5/325 mg Tab PO STA ×2 (17:26→18:58)
--- NOTE | 2017-09-01 17:52 | CT ---
PROCEDURE: CT scan brain dated 09/01/2017. HISTORY: 51-year-old female with headache COMPARISON: Comparison made with prior study 06/15/2017. TECHNIQUE: Axial computed tomography images were obtained through the head/brain without intravenous contrast. Radiation dose: Total exam DLP = 1177.04 mGy-cm. This CT exam was performed using one or more of the following dose reduction techniques: Automated exposure control, adjustment of the mA and/or kV according to patient size, and/or use of iterative reconstruction technique. FINDINGS: HEMORRHAGE: No acute parenchymal, subarachnoid or extra-axial hemorrhage. BRAIN: No evidence of large acute infarct. No obvious parenchymal nor extra-axial mass or collection seen on this noncontrast study. Ventricular and sulcal size are within range of normal for this patient's stated age. Partially empty sella again noted. VENTRICLES: No obstructive hydrocephalus. . Persistent mild asymmetry of the lateral ventricles left-sided which is slightly larger than the right felt to represent an anatomic variant. CALVARIUM: Calvarium intact. Re- demonstrated is a small approximately 11 mm x 7 mm elliptical shaped soft tissue density within the left posterior temporal scalp that could represent focal air granulation tissue or inspissated sebaceous cyst. There is a 2nd approximately 8 mm x 7.9 mm elliptical shaped soft tissue density within the right superior parietal scalp that contains some internal calcification. This may also represent a inspissated cyst or focus of granulation tissue. PARANASAL SINUSES: Interval development of partial opacification right chamber sphenoid sinus. Minor polypoid like mucosal thickening both maxillary antra. MASTOID AIR CELLS: Unremarkable as visualized. No inflammatory changes. OTHER FINDINGS: None. IMPRESSION: No acute intracranial hemorrhage. Interval development of partial opacification right chamber sphenoid sinus.
--- NOTE | 2017-09-01 18:37 | CARD ---
APPROVED REPORT EKG Measurement Heart [id number] <Conclusion> Normal sinus rhythm with sinus arrhythmia Normal ECG
[2017-09-01 19:22] VITALS: RESP 18; O2SAT 97
== END 2017-09-01 19:22 | disposition home or self-care (01) ==
LOC: ED 14:02
DX: N39.0 Urinary tract infection, site not specified (principal); R51 Headache; F17.210 Nicotine dependence, cigarettes, uncomplicated; Z85.43 Personal history of malignant neoplasm of ovary
CPT/HCPCS: 70450; 71045; 80053; 81001; 82550; 83615; 83735; 83880; 84484; 85025; 85378; 85610; 85730; 87086; 93005; 99284; J7040

== ENCOUNTER 2017-10-16 15:47 | Emergency (ER) | payer MEDICAID, OTHER ==
[2017-10-16 15:47] VITALS: BMI 36.0
[2017-10-16 15:59] VITALS: RESP 18; TEMP 97.9
--- NOTE | 2017-10-16 16:03 | ED PDOC ---
Arrival/HPI - General Chief Complaint: Abdominal Pain Time Seen by Provider: 10/16/17 16:01 Historian: Patient - History of Present Illness Narrative History of Present Illness (Text): 10/16/17 16:03 A 51 year old female, whose past medical history includes CVA(October 2016, took 1 week to recover), ovarian cancer (had many years ago, currently in remission), and chronic back pain, presents to the emergency department complaining of headache and abdominal pain since this morning. Patient noted feeling nauseous , and vomited a couple of times. Denies urinary symptoms. Time/Duration: Other (see hpi) Context: Home Past Medical History - Provider Review Nursing Documentation Reviewed: Yes - Past History Past History: No Previous - Infectious Disease Hx of Infectious Diseases: None - Tetanus Immunization Tetanus Immunization: Unknown - Reproductive Menopause: Yes - Cardiac Hx Cardiac Disorders: No - Pulmonary Hx Chronic Obstructive Pulmonary Disease (COPD): Yes (smoker) - Neurological HX Cerebrovascular Accident: Yes (10-19-16 LEFT SIDED) - HEENT Hx HEENT Disorder: Yes - Renal Hx Renal Failure: No - Endocrine/Metabolic Hx Diabetes Mellitus Type 1: No Hx Diabetes Mellitus Type 2: No Hx Hypothyroidism: No - Hematological/Oncological Hx Blood Disorders: Yes Hx Cancer: Yes (ovarian ca -TOOK CHEMO PILLS.DENIES HAVING RADIATION.) - Integumentary Hx Dermatological Disorder: No - Musculoskeletal/Rheumatological Hx Arthritis: No - Gastrointestinal Hx Gastroesophageal Reflux: No - Genitourinary/Gynecological Hx Genitourinary Disorders: No Other/Comment: Ovarian CA - Psychiatric Hx Psychophysiologic Disorder: Yes (SMOKES 5 CIG A DAY) Hx Substance Use: No - Surgical History Hx Cholecystectomy: Yes Other/Comment: Ovarian Surgery. Bone fusion. Pt with artificial disc. 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 Patient has 4screws/2rods/2plates on back - Anesthesia Hx Anesthesia: No Hx Anesthesia Reactions: No Hx Malignant Hyperthermia: No - Suicidal Assessment Feels Threatened In Home Enviroment: No Family/Social History Smoking Status: Light Smoker < 10 Cigarettes Daily Hx Alcohol Use: No Hx Substance Use: No Hx Substance Use Treatment: No Allergies/Home Meds Allergies/Adverse Reactions: Allergies penicillin V Allergy (Verified 10/16/17 15:59) RASH Review of Systems - Review of Systems Constitutional: Normal. absent: Fatigue, Weight Change, Fevers Eyes: Normal ENT: Normal Respiratory: Normal. absent: SOB Cardiovascular: Normal. absent: Chest Pain, Palpitations Gastrointestinal: Abdominal Pain (stomach cramping), Nausea, Vomiting, Other ((+ ) left flank pain). absent: Constipation, Diarrhea Genitourinary Female: Normal. absent: Dysuria, Frequency, Hematuria, Vaginal Bleeding, Vaginal Discharge Musculoskeletal: Normal. absent: Back Pain Skin: Normal. absent: Rash Neurological: Headache. absent: Dizziness, Focal Weakness, Gait Changes, Speech Changes, Facial Droop, Disequilibrium, Seizure Endocrine: Normal Hemo/Lymphatic: Normal Psychiatric: Normal Physical Exam Vital Signs Temp Pulse Resp BP Pulse Ox 10/16/17 15:55 97.9 F 71 18 121/88 99 Temperature: Afebrile Blood Pressure: Normal Pulse: Regular Respiratory Rate: Normal Appearance: Positive for: Well-Appearing, Non-Toxic, Comfortable Pain Distress: None Mental Status: Positive for: Alert and Oriented X 3 - Systems Exam Head: Present: Atraumatic, Normocephalic Pupils: Present: PERRL Extroacular Muscles: Present: EOMI Conjunctiva: Present: Normal Mouth: Present: Moist Mucous Membranes Neck: Present: Normal Range of Motion Respiratory/Chest: Present: Clear to Auscultation, Good Air Exchange. No: Respiratory Distress, Accessory Muscle Use Cardiovascular: Present: Regular Rate and Rhythm, Normal S1, S2. No: Murmurs Abdomen: No: Tenderness, Distention, Peritoneal Signs Back: Present: Normal Inspection Upper Extremity: Present: Normal Inspection. No: Cyanosis, Edema Lower Extremity: Present: Normal Inspection. No: Edema Neurological: Present: GCS=15, CN II-XII Intact, Speech Normal, Motor Func Grossly Intact, Normal Sensory Function, Normal Cerebellar Funct, Gait Normal Skin: Present: Warm, Dry, Normal Color. No: Rashes Psychiatric: Present: Alert, Oriented x 3, Normal Insight, Normal Concentration Medical Decision Making ED Course and Treatment: 10/16/17 19:15 Re-evaluation. Patient feels better. Discussed results and plan with patient who expresses understanding. All questions answered and there is agreement with the plan to discharge home with instructions. Patient stable for discharge. Return if symptoms persist or worsen. 10/16/17 19:[address] head for dizziness since she had a normal CT head less than 2 months ago. 10/16/17 20:45 Patient stated she feels better. Dizziness has improved with Meclizine. Patient has a normal gait. No neuro focal deficits. Patient wishes to be discharged home. Re-evaluation Time: 19:15 Reassessment Condition: Re-examined, Improved - Lab Interpretations Lab Results: 10/16/17 16:55 10/16/17 16:55 Lab Results 10/16/17 16:55: Sodium 144, Potassium 4.0, Chloride 106, Carbon Dioxide 25, Anion Gap 16, BUN 19, Creatinine 0.9, Est GFR ( Amer) > 60, Est GFR (Non- Af Amer) > 60, Random Glucose 91, Calcium 9.8, Magnesium 1.9, Total Bilirubin 0.5, AST 50 H D, ALT 91 H, Alkaline Phosphatase 127 H, Total Protein 8.2, Albumin 4.4, Globulin 3.8, Albumin/Globulin Ratio 1.2, Lipase 97 10/16/17 16:55: PT 12.0, INR 1.05, APTT 35.9 10/16/17 16:55: WBC 9.5, RBC 4.46, Hgb 13.4, Hct 40.7, MCV 91.3, MCH 30.0, MCHC 32.9, RDW 14.7 H, Plt Count 283, MPV 10.0, Gran % 62.9, Lymph % (Auto) 31.1, [place] % (Auto) 4.7, Eos % (Auto) 1.2 L, Baso % (Auto) 0.1, Gran # 5.97, Lymph # ( Auto) 3.0, [place] # (Auto) 0.5, Eos # (Auto) 0.1, Baso # (Auto) 0.01 10/16/17 16:51: Urine Color Yellow, Urine Appearance Clear, Urine pH 6.0, Ur Specific [place] 1.025, Urine Protein Negative, Urine Glucose (UA) Negative, Urine Ketones Negative, Urine Blood Moderate H, Urine Nitrate Negative, Urine Bilirubin Negative, Urine Urobilinogen 0.2, Ur Leukocyte Esterase Negative, Urine RBC 20 - 25, Urine WBC 0 - 2, Ur Epithelial Cells 6 - 8, Amorphous Sediment Few, Urine Bacteria Many, Urine Other [place] I have reviewed the lab results: Yes Interpretation: No sign. chg./baseline - RAD Interpretation Narrative RAD Interpretations (Text): 10/16/17 19:15 PROCEDURE: CT Abdomen and Pelvis without intravenous contrast HISTORY: left flank pain COMPARISON: 05/25/2017 TECHNIQUE: Without contrast.. Contrast dose: 0 Radiation dose: Total exam DLP = 1177.42 mGy-cm. This CT exam was performed using one or more of the following dose reduction techniques: Automated exposure control, adjustment of the mA and/or kV according to patient size, and/or use of iterative reconstruction technique. FINDINGS: LOWER THORAX: Unremarkable. LIVER: Normal size, contour. Diffusely diminished attenuation consistent with fatty infiltration. No mass. No biliary dilatation. GALLBLADDER AND BILE DUCTS: Status post cholecystectomy. PANCREAS: Unremarkable. No gross lesion or ductal dilatation. SPLEEN: Unremarkable. ADRENALS: Unremarkable. No mass. KIDNEYS AND URETERS: Unremarkable. No hydronephrosis. No solid mass. VASCULATURE: Unremarkable. No aortic aneurysm. BOWEL: Unremarkable. No obstruction. No gross mural thickening. APPENDIX: Unremarkable. Normal appendix. PERITONEUM: Unremarkable. No free fluid. No free air. LYMPH NODES: Unremarkable. No enlarged lymph nodes. BLADDER: Suboptimally distended. Grossly normal. REPRODUCTIVE: Normal uterus. BONES: No acute fracture. Laminectomy and posterior fusion at L5-S1. OTHER FINDINGS: No acute abnormality. No evidence of urinary calculus or urinary tract obstruction. Fatty liver. Cholecystectomy. IMPRESSION: Unremarkable non contrast enhanced CT of the abdomen and pelvis. Radiology Orders: 10/16/17 16:15 ABD & PELVIS W/O PO OR IV CONT [CT] Stat - Medication Orders Current Medication Orders: Discontinued Medications Diphenhydramine HCl (Benadryl) 25 mg IVP STAT STA Stop: 10/16/17 16:18 Last Admin: 10/16/17 17:03 Dose: 25 mg IVP Administration Document 10/16/17 17:03 [facility] (Rec: 10/16/17 17:03 [email or web address]) Charges for Administration # of IVP Administrations 1 Sodium Chloride (Sodium Chloride 0.9%) 1,000 mls @ 1,000 mls/hr IV .Q1H STA Stop: 10/16/17 17:14 Last Admin: 10/16/17 17:02 Dose: 1,000 mls/hr eMAR Start Stop Document 10/16/17 17:02 [facility] (Rec: 10/16/17 17:03 [id number]) Intravenous Solution Start Date 10/16/17 Start Time 17:03 End Date 10/16/17 End time 18:03 Total Infusion Time 60 Ketorolac Tromethamine (Toradol) 15 mg IVP STAT STA Stop: 10/16/17 16:16 Last Admin: 10/16/17 17:03 Dose: 15 mg MAR Pain Assessment Document 10/16/17 17:03 [facility] (Rec: 10/16/17 17:03 [place] [id number]) Pain Reassessment Is this a pain reassessment? No Sleep Is patient sleeping during reassessment? No Presence of Pain Presence of Pain Yes Pain Scale Used Pain Scale Used Numeric IVP Administration Document 10/16/17 17:03 [facility] (Rec: 10/16/17 17:03 [email or web address] Charges for Administration # of IVP Administrations 1 Meclizine HCl (Antivert) 50 mg PO STAT STA Stop: 10/16/17 19:31 Last Admin: 10/16/17 20:16 Dose: 50 mg Metoclopramide HCl (Reglan) 10 mg IVP STAT STA Stop: 10/16/17 16:16 Last Admin: 10/16/17 17:03 Dose: 10 mg IVP Administration Document 10/16/17 17:03 [facility] (Rec: 10/16/17 17:03 [email or web address] Charges for Administration # of IVP Administrations 1 Disposition/Present on Arrival - Present on Arrival Any Indicators Present on Arrival: No History of DVT/PE: No History of Uncontrolled Diabetes: No Urinary Catheter: No History of Decub. Ulcer: No History Surgical Site Infection Following: None - Disposition Have Diagnosis and Disposition been Completed?: Yes Diagnosis: Nonspecific abdominal pain, Nausea & vomiting, Headache, Benign paroxysmal positional vertigo Disposition: HOME/ ROUTINE Disposition Time: 20:48 Patient Plan: Discharge Condition: IMPROVED Discharge Instructions (ExitCare): Nausea and Vomiting, Adult (DC), Vertigo (a Type of Dizziness) (DC) Additional Instructions: Call private doctor for follow up visit in 1-2 days. Take medication as instructed with food. Return to emergency if symptoms worsen. Prescriptions: Famotidine [Pepcid] 40 mg PO DAILY #10 tablet Meclizine [Antivert] 25 mg PO Q6 PRN #30 tab PRN Reason: Dizziness Ondansetron ODT [Zofran ODT] 4 mg PO Q4H PRN #15 odt PRN Reason: Nausea/Vomiting Referrals: Catia Murguia MD [Primary Care Provider] - Follow up with primary Ernie Gardner DO [[facility]] - Follow up with primary Forms: [employer] (Jordanian), WORK NOTE
[2017-10-16] MEDS ORDERED: Sodium Chloride 0.9% 1,000 ML IV STA (16:15)
[2017-10-16] MEDS ORDERED: DiphenhydrAMINE 50 mg/ml Inj IVP STA (16:17)
[2017-10-16 16:57] LABS: URINE BILIRUBIN NEGATIVE (NEGATIVE); URINE BLOOD MODERATE (NEGATIVE); URINE GLUCOSE (UA) NEGATIVE (NEGATIVE); URINE LEUKOCYTE ESTERASE NEGATIVE Leu/uL (NEGATIVE); URINE PROTEIN NEGATIVE mg/dL (<30 mg/dL); URINE UROBILINOGEN 0.2 E.U./dL (<1 E.U./dL)
[2017-10-16 17:01] LABS: URINE APPEARANCE CLEAR (CLEAR); URINE COLOR YELLOW (YELLOW)
[2017-10-16 17:16] LABS: URINE AMORPHOUS SEDIMENT FEW; URINE BACTERIA MANY (NEG); URINE RBC 20 - 25 /hpf (0-2); URINE WBC 0 - 2 /hpf (0-6)
[2017-10-16 17:41] LABS: ALB/GLOB RATIO 1.2 (1.1-1.8); ALBUMIN 4.4 g/dL (3.0-4.8); ALT/SGPT 91 U/L (7-56); AST/SGOT 50 U/L (14-36); BLOOD UREA NITROGEN 19 mg/dL (7-21); CALCIUM 9.8 mg/dL (8.4-10.5); GFR AFRICAN-AMERICAN > 60; GFR NON-AFRICAN AMERICAN > 60; LIPASE 97 U/L (23-300)
[2017-10-16 17:47] LABS: BASO # 0.01 K/mm3 (0.0-2.0); BASO % 0.1 % (0.0-3.0); EOS # 0.1 (0.0-0.7); EOS % 1.2 % (1.5-5.0); GRAN # 5.97 (1.4-6.5); GRAN % 62.9 % (50.0-68.0); HEMOGLOBIN 13.4 g/dL (12.0-16.0); LYMPH % 31.1 % (22.0-35.0); MEAN CELL VOLUME 91.3 fl (80.0-105.0); MEAN CORPUSCULAR HGB CONC 32.9 g/dl (31.0-37.0); MONO # 0.5 (0.1-0.6); MONO % 4.7 % (1.0-6.0); RBC 4.46 10^6/uL (3.5-6.1); RED CELL DISTRIBUTION WIDTH 14.7 % (11.5-14.5); WHITE BLOOD COUNT 9.5 10^3/ul (4.5-11.0)
[2017-10-16 17:58] LABS: INR 1.05 (0.93-1.08); PARTIAL THROMBOPLASTIN TIME 35.9 Seconds (25.1-36.5)
--- NOTE | 2017-10-16 18:20 | CT ---
PROCEDURE: CT Abdomen and Pelvis without intravenous contrast HISTORY: left flank pain COMPARISON: 05/25/2017 TECHNIQUE: Without contrast.. Contrast dose: 0 Radiation dose: Total exam DLP = 1177.42 mGy-cm. This CT exam was performed using one or more of the following dose reduction techniques: Automated exposure control, adjustment of the mA and/or kV according to patient size, and/or use of iterative reconstruction technique. FINDINGS: LOWER THORAX: Unremarkable. LIVER: Normal size, contour. Diffusely diminished attenuation consistent with fatty infiltration. No mass. No biliary dilatation. GALLBLADDER AND BILE DUCTS: Status post cholecystectomy. PANCREAS: Unremarkable. No gross lesion or ductal dilatation. SPLEEN: Unremarkable. ADRENALS: Unremarkable. No mass. KIDNEYS AND URETERS: Unremarkable. No hydronephrosis. No solid mass. VASCULATURE: Unremarkable. No aortic aneurysm. BOWEL: Unremarkable. No obstruction. No gross mural thickening. APPENDIX: Unremarkable. Normal appendix. PERITONEUM: Unremarkable. No free fluid. No free air. LYMPH NODES: Unremarkable. No enlarged lymph nodes. BLADDER: Suboptimally distended. Grossly normal. REPRODUCTIVE: Normal uterus. BONES: No acute fracture. Laminectomy and posterior fusion at L5-S1. OTHER FINDINGS: No acute abnormality. No evidence of urinary calculus or urinary tract obstruction. Fatty liver. Cholecystectomy. IMPRESSION: Unremarkable non contrast enhanced CT of the abdomen and pelvis.
[2017-10-16 21:45] VITALS: BP 123/80; PULSE 68; O2SAT 100
== END 2017-10-16 21:12 | disposition home or self-care (01) ==
LOC: ED 15:47
DX: R10.9 Unspecified abdominal pain (principal); R11.2 Nausea with vomiting, unspecified; R51 Headache; H81.10 Benign paroxysmal vertigo, unspecified ear; F17.210 Nicotine dependence, cigarettes, uncomplicated
CPT/HCPCS: 74176; 80053; 81001; 83690; 83735; 85025; 85610; 85730; 87086; 96361; 96374; 96375; 99285; J1200; J1885; J2765; J7030

== ENCOUNTER 2017-12-04 19:43 | Emergency (ER) | payer OTHER ==
[2017-12-04 19:43] VITALS: BMI 36.0
[2017-12-04] MEDS ORDERED: Albuterol-Ipratrop 3 mg / 0.5 (3 ml) UD IH STA ×2 (20:20→21:40)
--- NOTE | 2017-12-04 20:37 | ED PDOC ---
Arrival/HPI - General Chief Complaint: Shortness Of Breath Time Seen by Provider: 12/04/17 19:44 Historian: Patient - History of Present Illness Narrative History of Present Illness (Text): 12/04/17 20:34 A 52 year old female, whose past medical history includes CVA, ovarian CA, presents to the emergency department for a complaint of minimally productive cough over past few days.Occassional mild shortness of breath.Some chest discomfort only when coughing. Patient reports that she is a smoker and continues to smoke. The patient denies fevers, chills, headache, dizziness, sore throat, chest pain, dyspnea on exertion, abdominal pain, nausea, vomiting, diarrhea, neck/back pain, urinary/bowel changes or any other complaint. Time/Duration: Other (Several Days) Symptom Onset: Sudden Symptom Course: Unchanged Activities at Onset: Rest, Light Context: Home Past Medical History - Provider Review Nursing Documentation Reviewed: Yes - Past History Past History: No Previous - Infectious Disease Hx of Infectious Diseases: None - Tetanus Immunization Tetanus Immunization: Unknown - Cardiac Hx Cardiac Disorders: No - Pulmonary Hx Chronic Obstructive Pulmonary Disease (COPD): Yes (smoker) - Neurological HX Cerebrovascular Accident: Yes (10-19-16 LEFT SIDED) - HEENT Hx HEENT Disorder: Yes - Renal Hx Renal Failure: No - Endocrine/Metabolic Hx Diabetes Mellitus Type 1: No Hx Diabetes Mellitus Type 2: No Hx Hypothyroidism: No - Hematological/Oncological Hx Blood Disorders: Yes Hx Cancer: Yes (ovarian ca -TOOK CHEMO PILLS.DENIES HAVING RADIATION.) - Integumentary Hx Dermatological Disorder: No - Musculoskeletal/Rheumatological Hx Arthritis: No - Gastrointestinal Hx Gastroesophageal Reflux: No - Genitourinary/Gynecological Hx Genitourinary Disorders: No Other/Comment: Ovarian CA - Psychiatric Hx Psychophysiologic Disorder: Yes (SMOKES 5 CIG A DAY) Hx Substance Use: No - Surgical History Hx Cholecystectomy: Yes Other/Comment: Ovarian Surgery. Bone fusion. Pt with artificial disc. 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 Patient has 4screws/2rods/2plates on back - Anesthesia Hx Anesthesia: No Hx Anesthesia Reactions: No Hx Malignant Hyperthermia: No - Suicidal Assessment Feels Threatened In Home Enviroment: No Family/Social History - Physician Review Nursing Documentation Reviewed: Yes Family/Social History: No Known Family HX Smoking Status: Light Smoker < 10 Cigarettes Daily Hx Alcohol Use: No Hx Substance Use: No Hx Substance Use Treatment: No Allergies/Home Meds Allergies/Adverse Reactions: Allergies penicillin V Allergy (Verified 10/16/17 15:59) RASH Review of Systems - Physician Review All systems were reviewed & negative as marked: Yes - Review of Systems Constitutional: absent: Fevers, Night Sweats ENT: absent: Sore Throat Respiratory: SOB, Cough Cardiovascular: absent: Chest Pain, BOWERS Gastrointestinal: absent: Abdominal Pain, Stool Changes, Diarrhea, Nausea, Vomiting Genitourinary Female: absent: Urine Output Changes Musculoskeletal: absent: Back Pain, Neck Pain Neurological: absent: Headache, Dizziness Physical Exam Vital Signs Temp Pulse Resp BP Pulse Ox 12/04/17 22:17 97.5 F L 72 18 132/72 100 12/04/17 21:39 97.8 F 85 18 119/80 93 L Appearance: Positive for: Well-Appearing, Non-Toxic, Comfortable Pain Distress: None Mental Status: Positive for: Alert and Oriented X 3 - Systems Exam Head: Present: Atraumatic, Normocephalic Pupils: Present: PERRL Extroacular Muscles: Present: EOMI Conjunctiva: Present: Normal Mouth: Present: Moist Mucous Membranes Neck: Present: Normal Range of Motion Respiratory/Chest: Present: Rhonchi (Scattered rhonchi bilaterally. ) Cardiovascular: Present: Regular Rate and Rhythm, Normal S1, S2. No: Murmurs Abdomen: No: Tenderness, Distention, Peritoneal Signs Back: Present: Normal Inspection Upper Extremity: Present: Normal Inspection. No: Cyanosis, Edema Lower Extremity: Present: Normal Inspection. No: Edema Neurological: Present: GCS=15, CN II-XII Intact, Speech Normal Skin: Present: Warm, Dry, Normal Color. No: Rashes Psychiatric: Present: Alert, Oriented x 3, Normal Insight, Normal Concentration Medical Decision Making ED Course and Treatment: 12/04/17 20:37 Impression: A 52 year old female presents to the emergency department with a complaint of minimally productive cough and occassional shortness of breath. Plan: -- EKG -- Chest X-ray -- Duoneb -- Reassess and disposition Progress Notes: EKG: Ordered, reviewed, and independently interpreted the EKG. Rate : 82 BPM Rhythm : NSR Interpretation : Normal EKG 12/04/17 22:03 On re-evaluation, patient feels better and is in no acute distress. I have discussed the results and plan with the patient, who expresses understanding. Patient in agreement with plan to be discharged home. Patient is stable for discharge. Patient was instructed to follow up with physician or return if symptoms worsen or new concerning symptoms arise. - Lab Interpretations I have reviewed the lab results: Yes - RAD Interpretation Narrative RAD Interpretations (Text): 12/04/17 22:00 CXR-No acute process Radiology Orders: 12/04/17 20:18 CHEST PORTABLE [RAD] Stat Medical Case Manager: ED Physician - EKG Interpretation Interpreted by ED Physician: Yes Type: 12 lead EKG - Medication Orders Current Medication Orders: Discontinued Medications Albuterol/Ipratropium (Duoneb 3 Mg/0.5 Mg (3 Ml) Ud) 3 ml IH ONCE STA Stop: 12/04/17 20:21 Last Admin: 12/04/17 20:45 Dose: 3 ml Albuterol/Ipratropium (Duoneb 3 Mg/0.5 Mg (3 Ml) Ud) 3 ml IH ONCE STA Stop: 12/04/17 21:41 Last Admin: 12/04/17 21:30 Dose: 3 ml Azithromycin (Zithromax) 500 mg PO ONCE STA PRN Reason: Protocol Stop: 12/04/17 21:55 Last Admin: 12/04/17 22:15 Dose: 500 mg Ibuprofen (Motrin Tab) 600 mg PO STAT STA Stop: 12/04/17 21:56 Last Admin: 12/04/17 22:15 Dose: 600 mg - Scribe Statement The provider has reviewed the documentation as recorded by the Elodia Weller Provider Mioibe Attestation: All medical record entries made by the Elodia were at my direction and personally dictated by me. I have reviewed the chart and agree that the record accurately reflects my personal performance of the history, physical exam, medical decision making, and the department course for this patient. I have also personally directed, reviewed, and agree with the discharge instructions and disposition. Disposition/Present on Arrival - Present on Arrival Any Indicators Present on Arrival: No History of DVT/PE: No History of Uncontrolled Diabetes: No Urinary Catheter: No History of Decub. Ulcer: No History Surgical Site Infection Following: None - Disposition Have Diagnosis and Disposition been Completed?: Yes Diagnosis: Bronchitis Disposition: HOME/ ROUTINE Disposition Time: 22:01 Patient Plan: Discharge Condition: GOOD Discharge Instructions (ExitCare): Acute Bronchitis, Adult (DC) Additional Instructions: Take meds as prescribed/stop smoking/follow up with your doctor this week Prescriptions: Benzonatate [Tessalon Perles] 100 mg PO TID PRN #21 sgl PRN Reason: Cough Albuterol HFA [Ventolin HFA 90 mcg/actuation (8 g)] 2 puff IH [id number] PRN #1 puff PRN Reason: Wheezing Azithromycin [Zithromax] 250 mg PO DAILY #6 tab Forms: [employer] (Japanese)
[2017-12-04 21:41] VITALS: RESP 18
[2017-12-04 22:18] VITALS: BP 132/72; PULSE 72; TEMP 97.5; O2SAT 100
--- NOTE | 2017-12-05 09:46 | CARD ---
APPROVED REPORT Date of service: 12/04/2017 EKG Measurement Heart [id number] <Conclusion> Normal sinus rhythm Possible Left atrial enlargement RV conduction delay Borderline ECG
--- NOTE | 2017-12-05 10:20 | RAD ---
Date of service: 12/04/2017 HISTORY: cough /sob COMPARISON: 09/01/2017 FINDINGS: LUNGS: No active pulmonary disease. PLEURA: No significant pleural effusion identified, no pneumothorax apparent. CARDIOVASCULAR: Normal. OSSEOUS STRUCTURES: No significant abnormalities. VISUALIZED UPPER ABDOMEN: Normal. OTHER FINDINGS: None. IMPRESSION: No active disease.
== END 2017-12-04 22:17 | disposition home or self-care (01) ==
LOC: ED 19:43
DX: J40 Bronchitis, not specified as acute or chronic (principal); F17.210 Nicotine dependence, cigarettes, uncomplicated

== ENCOUNTER 2017-12-29 15:03 | Emergency (ER) | payer OTHER ==
[2017-12-29 15:04] VITALS: BMI 36.0
[2017-12-29 15:48] VITALS: BP 120/90; PULSE 81; RESP 18; TEMP 98; O2SAT 96
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
[2017-12-29] MEDS ORDERED: Naproxen 550 mg Tab PO STA (16:51)
--- NOTE | 2017-12-29 17:24 | RAD ---
Date of service: 12/29/2017 PROCEDURE: Radiographs of the Lumbar Spine. HISTORY: low back pain COMPARISON: No prior. FINDINGS: BONES: There is normal alignment of the lumbar vertebral bodies. There is exaggerated lumbar lordosis. There is no acute fracture, spondylolysis or spondylolisthesis. Bone mineralization is normal. DISC SPACES: Status post L5-S1 discectomy and posterior spinal fixation with transpedicular screws. There are radiopaque disc graft markers. No evidence for hardware complications. There is mild degenerative disc disease at L1-2 with reduced disc height and anterior spurring. OTHER FINDINGS: None. IMPRESSION: Status post L5-S1 diskectomy, no evidence for hardware complications. Exaggerated lumbar lordosis. Mild degenerative disc disease at L1-2.
== END 2017-12-29 17:10 | disposition left against medical advice (07) ==
LOC: ED 15:03
DX: M54.9 Dorsalgia, unspecified (principal); F17.210 Nicotine dependence, cigarettes, uncomplicated

== ENCOUNTER 2018-03-05 19:23 | Emergency (ER) | payer OTHER ==
[2018-03-05 19:24] VITALS: BMI 36.0
[2018-03-05 19:45] VITALS: BP 125/87; TEMP 98.5
[2018-03-05] MEDS ORDERED: Sodium Chloride 0.9% 1,000 ML IV STA (20:11)
--- NOTE | 2018-03-05 20:23 | ED PDOC ---
Arrival/HPI - General Chief Complaint: Headache Time Seen by Provider: 03/05/18 19:52 - History of Present Illness Narrative History of Present Illness (Text): 52 y/o F w/ h/o SLE(not on any medications), HTN, s/p oopherectomy secondary to ovarian cancer presenting to the Emergency Room with complaint of a gradual onset of a global headache worsened in the last 24 hours. The patient describes the headache as diffuse and pulsating with a draining sensation extending from the occiput down to her neck. The patient states her headache has been present for the last couple of months, but has subsided with OTC medications and rest. She also admits to phonophobia, vertigo and and nausea. She denies any visual deficits or weakness at this time. Time/Duration: Prior to Arrival Symptom Onset: Gradual Symptom Course: Intermittent Severity Level: Moderate Activities at Onset: Rest Context: Home Past Medical History - Provider Review Nursing Documentation Reviewed: Yes - Travel History Have you recently traveled outside [place] w/in the past 3 mons?: No - Past History Past History: No Previous - Infectious Disease Hx of Infectious Diseases: None - Tetanus Immunization Tetanus Immunization: Unknown - Cardiac Hx Cardiac Disorders: No - Pulmonary Hx Respiratory Disorders: Yes Hx Asthma: Yes - Neurological Hx Neurological Disorder: Yes Hx Migraine: Yes - HEENT Hx HEENT Disorder: Yes Other/Comment: Wears glasses - Renal Hx Renal Disorder: Yes Hx Kidney Stones: Yes - Endocrine/Metabolic Hx Endocrine Disorders: No - Hematological/Oncological Hx Blood Disorders: Yes Hx Cancer: Yes (ovarian ca -TOOK CHEMO PILLS.DENIES HAVING RADIATION.) - Integumentary Hx Dermatological Disorder: No - Musculoskeletal/Rheumatological Hx Musculoskeletal Disorders: Yes - Gastrointestinal Hx Gastrointestinal Disorders: Yes Hx Gastrointestinal Ulcer: Yes - Genitourinary/Gynecological Hx Genitourinary Disorders: Yes Other/Comment: Ovarian CA - Psychiatric Hx Psychophysiologic Disorder: No Hx Substance Use: No - Surgical History Hx Appendectomy: Yes Hx Cholecystectomy: Yes - Anesthesia Hx Anesthesia: Yes Hx Anesthesia Reactions: No Hx Malignant Hyperthermia: No - Suicidal Assessment Feels Threatened In Home Enviroment: No Family/Social History - Physician Review Nursing Documentation Reviewed: Yes Family/Social History: No Known Family HX Smoking Status: Light Smoker < 10 Cigarettes Daily Hx Alcohol Use: No Hx Substance Use: No Hx Substance Use Treatment: No Allergies/Home Meds Allergies/Adverse Reactions: Allergies penicillin V Allergy (Verified 03/05/18 19:45) RASH Home Medications: Home Meds Medication Instructions Recorded Confirmed RX: No Known Home Med 03/05/18 03/05/18 Review of Systems - Physician Review All systems were reviewed & negative as marked: Yes - Review of Systems Eyes: absent: Photophobia, Eye Pain ENT: absent: Tinnitus Respiratory: absent: SOB, Wheezing Cardiovascular: absent: Chest Pain, Palpitations Gastrointestinal: absent: Abdominal Pain Musculoskeletal: Neck Pain Skin: absent: Rash, Skin Lesions Neurological: Headache, Dizziness. absent: Focal Weakness, Gait Changes Psychiatric: absent: Anxiety Physical Exam Vital Signs Reviewed: Yes Vital Signs Temp Pulse Resp BP Pulse Ox 03/05/18 19:44 98.5 F 109 H 19 125/87 99 Temperature: Afebrile Blood Pressure: Normal Pulse: Tachycardic Respiratory Rate: Normal Appearance: Positive for: Well-Appearing, Non-Toxic, Comfortable Mental Status: Positive for: Alert and Oriented X 3 - Systems Exam Head: Present: Atraumatic, Normocephalic Pupils: Present: PERRL Extroacular Muscles: Present: EOMI Conjunctiva: Present: Normal Mouth: Present: Moist Mucous Membranes Neck: Present: Normal Range of Motion Respiratory/Chest: Present: Clear to Auscultation, Good Air Exchange. No: Respiratory Distress Cardiovascular: Present: Regular Rate and Rhythm, Normal S1, S2 Abdomen: Present: Normal Bowel Sounds. No: Tenderness, Distention, Peritoneal Signs Upper Extremity: Present: Normal Inspection. No: Edema Lower Extremity: Present: Normal Inspection. No: Edema Neurological: Present: GCS=15, CN II-XII Intact, Speech Normal, Motor Func Grossly Intact, Normal Sensory Function, Normal Cerebellar Funct, Gait Normal, Memory Normal Skin: Present: Warm, Dry, Other (multiple well circumscribed soft nodules noted scattered through out head. Non-tender to palpation). No: Rashes Psychiatric: Present: Alert, Oriented x 3, Normal Insight, Normal Concentration Medical Decision Making ED Course and Treatment: Impression 52F w/ h/o SLE presenting to the ED with LION Differential Diagnoses Includes But Is Not Limited To: Migraine Headache Tension Headache TIA/CVA Plan --Labs --Toradol --Ativan --Fioricet --Benadryl --Reglan --IVF --CTH --UA/Urine Preg Progress Notes 10/29/18 21:31 Labs unremarkable with CTH pending result read. Patient reevaluated at the bedside and reports anxiety with minimal resolution in her headache. Additional medications ordered. 03/05/18 22:08 CTH shows no acute intracranial abnormalities. Patient reevaluated and feels better. She will follow up with her PCP. Neurology follow up provided. She is stable for discharge. - RAD Interpretation Narrative RAD Interpretations (Text): 03/05/18 22:06 CT Head without Intravenous Contrast. CLINICAL HISTORY: Headache TECHNIQUE: Axial computed tomography images of the head/brain without intravenous contrast. 912.92 mGy-cm COMPARISON: None provided. FINDINGS: BRAIN Unremarkable brain VENTRICLES: No hydrocephalus. ORBITS: The orbits are unremarkable. SINUSES AND MASTOIDS: The paranasal sinuses and mastoid air cells are clear. BONES: No fracture. SOFT TISSUES: Unremarkable. IMPRESSION: Unremarkable brain Radiology Orders: 03/05/18 20:11 HEAD W/O CONTRAST [CT] Stat Financial Wellness Coach: Radiologist - Medication Orders Current Medication Orders: Sodium Chloride (Sodium Chloride 0.9%) 1,000 mls @ 999 mls/hr IV .Q1H1M STA Stop: 03/05/18 21:11 Ketorolac Tromethamine (Toradol) 30 mg IVP STAT STA Stop: 03/05/18 20:12 Metoclopramide HCl (Reglan) 10 mg IVP STAT STA Stop: 03/05/18 20:12 Disposition/Present on Arrival - Present on Arrival Any Indicators Present on Arrival: No History of DVT/PE: No History of Uncontrolled Diabetes: No Urinary Catheter: No History of Decub. Ulcer: No History Surgical Site Infection Following: None - Disposition Have Diagnosis and Disposition been Completed?: Yes Diagnosis: Headache Disposition: HOME/ ROUTINE Disposition Time: 22:08 Patient Plan: Discharge Condition: IMPROVED Discharge Instructions (ExitCare): Tension Headache (DC) Additional Instructions: All medical record entries made by the Scribe were at my direction and personally dictated by me. I have reviewed the chart and agree that the record accurately reflects my personal performance of the history, physical exam, medical decision making, and the department course for this patient. I have also personally directed, reviewed, and agree with the discharge instructions and disposition. Referrals: Catia Murguia MD [Primary Care Provider] - Follow up with primary Man Gibbs MD [Staff Provider] - Follow up with primary Forms: [employer] (Sinhala), WORK NOTE
[2018-03-05 20:59] LABS: BASO # 0.02 K/mm3 (0.0-2.0); BASO % 0.2 % (0.0-3.0); EOS # 0.1 (0.0-0.7); EOS % 1.2 % (1.5-5.0); GRAN # 6.3 (1.4-6.5); GRAN % 61.5 % (50.0-68.0); HEMOGLOBIN 13.4 g/dL (12.0-16.0); LYMPH # 3.2 (1.2-3.4); LYMPH % 31.4 % (22.0-35.0); MEAN CELL VOLUME 92.7 fl (80.0-105.0); MEAN CORPUSCULAR HEMOGLOBIN 30.7 pg (25.0-35.0); MEAN CORPUSCULAR HGB CONC 33.1 g/dl (31.0-37.0); MEAN PLATELET VOLUME 10.3 fl (7.0-11.0); MONO # 0.6 (0.1-0.6); MONO % 5.7 % (1.0-6.0); RBC 4.37 10^6/uL (3.5-6.1); RED CELL DISTRIBUTION WIDTH 14.4 % (11.5-14.5); WHITE BLOOD COUNT 10.2 10^3/uL (4.5-11.0)
[2018-03-05 21:08] LABS: ALB/GLOB RATIO 1.2 (1.1-1.8); ALBUMIN 4.1 g/dL (3.0-4.8); ALT/SGPT 91 U/L (7-56); AST/SGOT 48 U/L (14-36); BLOOD UREA NITROGEN 20 mg/dL (7-21); CALCIUM 9.9 mg/dL (8.4-10.5); GFR NON-AFRICAN AMERICAN 59
[2018-03-05] MEDS ORDERED: DiphenhydrAMINE 50 mg/ml Inj IVP STA (21:24)
[2018-03-05] MEDS ORDERED: Apap-Butalbital-Caffeine 325-50-40mg Tab PO STA (21:24)
[2018-03-05 22:40] VITALS: PULSE 96; RESP 18; O2SAT 98
--- NOTE | 2018-03-06 08:46 | CT ---
Date of service: 03/05/2018 PROCEDURE: CT HEAD WITHOUT CONTRAST. HISTORY: headache COMPARISON: 09/01/2017 TECHNIQUE: Axial computed tomography images were obtained through the head/brain without intravenous contrast. Radiation dose: Total exam DLP = 912.92 mGy-cm. This CT exam was performed using one or more of the following dose reduction techniques: Automated exposure control, adjustment of the mA and/or kV according to patient size, and/or use of iterative reconstruction technique. FINDINGS: HEMORRHAGE: No intracranial hemorrhage. BRAIN: No mass effect or edema. No atrophy or chronic microvascular ischemic changes. VENTRICLES: Unremarkable. No hydrocephalus. CALVARIUM: Unremarkable. PARANASAL SINUSES: Unremarkable as visualized. No significant inflammatory changes. MASTOID AIR CELLS: Unremarkable as visualized. No inflammatory changes. OTHER FINDINGS: None. IMPRESSION: No acute intracranial findings
== END 2018-03-05 22:40 | disposition home or self-care (01) ==
LOC: ED 19:23
DX: R51 Headache (principal); I10 Essential (primary) hypertension; F17.210 Nicotine dependence, cigarettes, uncomplicated
CPT/HCPCS: 70450; 80053; 83735; 84702; 85025; 85651; 96361; 96374; 96375; 99285; J1200; J1885; J2060; J2765; J7030

== ENCOUNTER 2018-03-17 19:52 | Emergency (ER) | payer OTHER ==
[2018-03-17 19:52] VITALS: BMI 36.0
[2018-03-17 20:00] VITALS: TEMP 98.2
--- NOTE | 2018-03-17 20:30 | ED PDOC ---
Arrival/HPI - General Chief Complaint: Finger,Hand,&Wrist Time Seen by Provider: 03/17/18 20:04 Historian: Patient - History of Present Illness Narrative History of Present Illness (Text): 03/17/18 20:26 A 52 year old female, with no significant past medical history, presents to the emergency department complaining of right thumb pain ongoing since 01/2018. 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 She did not follow-up with ortho because she states she did not have the time due to her busy schedule. Patient denies any injuries/trauma, any other joint pain, or any other complaints at this time. No PMD Past Medical History - Provider Review Nursing Documentation Reviewed: Yes - Past History Past History: No Previous - Infectious Disease Hx of Infectious Diseases: None - Tetanus Immunization Tetanus Immunization: Unknown - Reproductive Menopause: Yes - Cardiac Hx Cardiac Disorders: No - Pulmonary Hx Respiratory Disorders: Yes Hx Asthma: Yes - Neurological Hx Neurological Disorder: Yes Hx Migraine: Yes - HEENT Hx HEENT Disorder: Yes Other/Comment: Wears glasses - Renal Hx Renal Disorder: Yes Hx Kidney Stones: Yes - Endocrine/Metabolic Hx Endocrine Disorders: No - Hematological/Oncological Hx Blood Disorders: Yes Hx Cancer: Yes - Integumentary Hx Dermatological Disorder: No - Musculoskeletal/Rheumatological Hx Musculoskeletal Disorders: Yes Hx Fractures: Yes - Gastrointestinal Hx Gastrointestinal Disorders: Yes Hx Gastrointestinal Ulcer: Yes - Genitourinary/Gynecological Hx Genitourinary Disorders: Yes Hx Ovarian Cancer: Yes - Psychiatric Hx Psychophysiologic Disorder: No Hx Substance Use: No - Surgical History Hx Appendectomy: Yes Hx Cholecystectomy: Yes - Anesthesia Hx Anesthesia: Yes Hx Anesthesia Reactions: No Hx Malignant Hyperthermia: No - Suicidal Assessment Feels Threatened In Home Enviroment: No Family/Social History - Physician Review Nursing Documentation Reviewed: Yes Family/Social History: No Known Family HX Smoking Status: Light Smoker < 10 Cigarettes Daily Hx Alcohol Use: No Hx Substance Use: No Hx Substance Use Treatment: No Allergies/Home Meds Allergies/Adverse Reactions: Allergies penicillin V Allergy (Verified 03/17/18 19:55) RASH Review of Systems - Physician Review All systems were reviewed & negative as marked: Yes - Review of Systems Constitutional: absent: Other (no trauma) Musculoskeletal: Other (right thumb pain; no other joint pain) Physical Exam Vital Signs Reviewed: Yes Vital Signs Temp Pulse Resp BP Pulse Ox 03/17/18 19:55 98.2 F 82 16 125/86 98 Temperature: Afebrile Blood Pressure: Normal Pulse: Regular Respiratory Rate: Normal Appearance: Positive for: Well-Appearing, Non-Toxic, Comfortable Pain Distress: Mild Mental Status: Positive for: Alert and Oriented X 3 - Systems Exam Upper Extremity: Present: NORMAL PULSES, Tenderness (right thumb), Swelling (right thumb), Neurovascularly Intact, Capillary Refill < 2s, Norm 2-Pt Discrimination, Other (pain upon flexion of right thumb). No: Temperature Abnormalties, Deformity Neurological: Present: GCS=15, CN II-XII Intact, Speech Normal Skin: Present: Warm, Dry, Normal Color. No: Rashes Psychiatric: Present: Alert, Oriented x 3, Normal Insight, Normal Concentration Medical Decision Making ED Course and Treatment: 03/17/18 20:28 Previous medical records reviewed. Impression: 52 year old female with right thumb pain. Plan: -- Right Hand X-Ray -- Reassess and disposition Progress Notes: XR R hand : no fracture or dislocation. XR results discussed with the patient. Dx of tenosynovitis discussed with the patient in great detail. Advised REGINALDO and that she must follow up with ortho without fail for further evaluation. Thumb spica splint applied. Neurovascular intact post splint application. Advised to take medication as prescribed. Return to the emergency room at any time for any new or worsening symptoms. Patient states she fully agrees with and understands discharge instructions. States that she agrees with the plan and disposition. Verbalized and repeated discharge instructions and plan. I have given the patient opportunity to ask any additional questions. - RAD Interpretation Radiology Orders: 03/17/18 20:24 HAND RIGHT 3 VIEWS [RAD] Stat - PA / SHOE SHINER / Resident Statement MD/DO has reviewed & agrees with the documentation as recorded. - Scribe Statement The provider has reviewed the documentation as recorded by the Elodia Bowling Provider Scribe Attestation: All medical record entries made by the Scribe were at my direction and personally dictated by me. I have reviewed the chart and agree that the record accurately reflects my personal performance of the history, physical exam, medical decision making, and the department course for this patient. I have also personally directed, reviewed, and agree with the discharge instructions and disposition. Disposition/Present on Arrival - Present on Arrival Any Indicators Present on Arrival: No History of DVT/PE: No History of Uncontrolled Diabetes: No Urinary Catheter: No History of Decub. Ulcer: No History Surgical Site Infection Following: None - Disposition Have Diagnosis and Disposition been Completed?: Yes Diagnosis: De Quervain's tenosynovitis, right Disposition: HOME/ ROUTINE Disposition Time: 21:00 Patient Plan: Discharge Patient Problems: Current Active Problems Problem Status Onset De Quervain's tenosynovitis, right Acute Condition: STABLE Discharge Instructions (ExitCare): De Quervain's Tenosynovitis Additional Instructions: Thank you for letting us take care of you today. You were treated for tenosynovitis - R thumb. The emergency medical care you received today was d irected at your acute symptoms. If you were prescribed any medication, please fill it and take as directed. It may take several days for your symptoms to resolve. Return to the Emergency Department if your symptoms worsen, do not improve, or if you have any other problems. Please call one of the physicians/clinics you have been referred to that are listed on the Patient Visit Information form that is included in your discharge packet. Bring any paperwork you were given at discharge with you along with any medications you are taking to your follow up visit. Our treatment cannot replace ongoing medical care by a primary care provider (PCP) outside of the emergency department. Thank you for allowing the [facility] team to be part of your care today. If you had an X-Ray : A Radiologist will review the ED reading if any change in treatment is needed we will contact you. Prescriptions: Meloxicam [Mobic] 15 mg PO DAILY #20 tab Forms: [employer] (Malay), WORK NOTE
[2018-03-17 21:35] VITALS: BP 124/79; PULSE 85; RESP 18; O2SAT 100
--- NOTE | 2018-03-18 11:23 | RAD ---
Date of service: 03/17/2018 PROCEDURE: Radiographs of the right hand. HISTORY: pain COMPARISON: None. FINDINGS: BONES: Bone alignment is normal. There is periarticular bone demineralization. There is no acute displaced fracture or bone destruction. JOINTS: The joint spaces are preserved. SOFT TISSUES: Normal. OTHER FINDINGS: None. IMPRESSION: No acute displaced fracture or dislocation.
== END 2018-03-17 21:30 | disposition home or self-care (01) ==
LOC: ED 19:52
DX: M65.4 Radial styloid tenosynovitis [de Quervain] (principal)

== ENCOUNTER 2018-05-17 19:42 | Emergency (ER) | payer OTHER ==
[2018-05-17 19:42] VITALS: BMI 36.0
[2018-05-17 20:05] VITALS: BP 124/84; PULSE 91; RESP 18; TEMP 97.9; O2SAT 97
== END 2018-05-17 20:47 | disposition left against medical advice (07) ==
LOC: ED 19:42
DX: Z02.89 Encounter for other administrative examinations (principal); M54.9 Dorsalgia, unspecified

== ENCOUNTER 2018-06-08 16:12 | Emergency (ER) | payer OTHER ==
[2018-06-08 16:12] VITALS: BMI 36.0
== END 2018-06-08 17:18 | disposition left against medical advice (07) ==
LOC: ED 16:12
DX: Z02.89 Encounter for other administrative examinations (principal); M54.9 Dorsalgia, unspecified

== ENCOUNTER 2018-08-13 23:59 | Emergency (ER) | payer OTHER ==
[2018-08-13 23:59] VITALS: BMI 36.0
[2018-08-14] MEDS ORDERED: Morphine 4 mg/ml ISec IVP STA ×2 (00:58→04:27)
--- NOTE | 2018-08-14 01:07 | ED PDOC ---
Arrival/HPI - General Chief Complaint: Flu-like Symptoms Time Seen by Provider: 08/14/18 00:38 Historian: Patient - History of Present Illness Narrative History of Present Illness (Text): 08/14/18 00:56 52 year old female with a past medical history of chronic back pain (managed with surgery) and ovarian CA (in remission), presents to emergency department with abdominal pain. Patient informs pain is localized to the epigastric region and the lower left abdomen. Patient informs of nausea with multiple episodes of vomiting. Patient also informs of diarrhea and chills. Patient also informs of pain to her left armpit and under her left breast. Patient informs pain feels like a "charley horse". Patient denies any headache, dizziness, chest pain, shortness of breath, cough, diaphoresis, or any other complaint. Time/Duration: Prior to Arrival Symptom Onset: Gradual Symptom Course: Unchanged Quality: Cramping Activities at Onset: Light Context: Home Past Medical History - Provider Review Nursing Documentation Reviewed: Yes - Past History Past History: No Previous - Infectious Disease Hx of Infectious Diseases: None - Tetanus Immunization Tetanus Immunization: Unknown - Reproductive Menopause: Yes - Cardiac Hx Cardiac Disorders: No - Pulmonary Hx Respiratory Disorders: Yes Hx Asthma: Yes - Neurological Hx Neurological Disorder: Yes Hx Migraine: Yes - HEENT Hx HEENT Disorder: Yes Other/Comment: Wears glasses - Renal Hx Renal Disorder: Yes Hx Kidney Stones: Yes - Endocrine/Metabolic Hx Endocrine Disorders: No - Hematological/Oncological Hx Blood Disorders: Yes Hx Cancer: Yes - Integumentary Hx Dermatological Disorder: No - Musculoskeletal/Rheumatological Hx Musculoskeletal Disorders: Yes Hx Fractures: Yes - Gastrointestinal Hx Gastrointestinal Disorders: Yes Hx Gastrointestinal Ulcer: Yes - Genitourinary/Gynecological Hx Genitourinary Disorders: Yes Hx Ovarian Cancer: Yes - Psychiatric Hx Psychophysiologic Disorder: No Hx Substance Use: No - Surgical History Hx Appendectomy: Yes Hx Cholecystectomy: Yes - Anesthesia Hx Anesthesia: Yes Hx Anesthesia Reactions: No Hx Malignant Hyperthermia: No - Suicidal Assessment Feels Threatened In Home Enviroment: No Family/Social History - Physician Review Nursing Documentation Reviewed: Yes Family/Social History: No Known Family HX Smoking Status: Light Smoker < 10 Cigarettes Daily Hx Alcohol Use: No Hx Substance Use: No Hx Substance Use Treatment: No Allergies/Home Meds Allergies/Adverse Reactions: Allergies penicillin V Allergy (Verified 08/14/18 00:32) RASH Review of Systems - Physician Review All systems were reviewed & negative as marked: Yes - Review of Systems Constitutional: Other (chills) Respiratory: absent: SOB, Cough Cardiovascular: absent: Chest Pain Gastrointestinal: Abdominal Pain, Diarrhea, Nausea, Vomiting Neurological: absent: Headache, Dizziness Physical Exam - Physical Exam Narrative Physical Exam (Text): 08/14/18 01:08 Gen: VS reviewed, alert, well developed, well nourished, nontoxic, mild distress. ENT: normal pharynx. Eye: EOMI, PERRL. Neck: no JVD, supple, no adenopathy. CV: regular rate, regular rhythm, no rubs, no murmur, no gallops, S1, S2, pulses equal and strong. Pulm: no distress, clear to auscultation, no wheeze, no rhonchi, breath sounds equal, no rales. Abd: diffuse abdominal tenderness, no guarding, no rebound, no rigidity, normal bowel sounds. Ext: no edema. Skin: good color, no rash, no cyanosis. Psych: responds appropriately to questions, normal affect. Neuro: oriented x 3, CN2-12 intact grossly, motor intact, sensation intact. Medical Decision Making ED Course and Treatment: 08/14/18 01:09 Impression: 52 year old female presents with abdominal pain nausea and vomiting Plan: -- CTA -- EKG -- CMP, Trop -- CBC, Platelets -- Chest X-ray -- Morphine -- Zofran -- POC -- Reassess and disposition Prior Visits: Notes and results from previous visits were reviewed. Progress Notes: 08/14/18 05:50 patient seen for left sided chest pain and nonspecific abdominal pain. with the patient's symptoms above and below the diaphragm a CTA was done to rule out aortic dissection. 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 there were no discreet breast masses or lesions. patient states she is still nauseous but does not want to stay in the hospital. admission offered several times. patient understands and agreeable to plan and will return for any new or worsening symptoms. 08/14/18 06:06 - RAD Interpretation Narrative RAD Interpretations (Text): 08/14/18 06:05 CTA OF THE CHEST ABDOMEN AND PELVIS WITH IV CONTRAST CLINICAL HISTORY: Dissection protocol. TECHNIQUE: Axial and reformatted sagittal and coronal images of the chest , abdomen and pelvis obtained after bolus IV contrast administration. Comparison: 12/06/2011 02:15 PM EDT: CT\\OT: CT ANGIOGRAPHY CHEST. FINDINGS: Bilateral basilar hypoventilatory pulmonary changes. Normal enhancement of the main pulmonary artery and right and left pulmonary arteries. Normal enhancement of the bilateral peripheral pulmonary arteries. There is no demonstrated pulmonary embolism. Normal thoracic aorta and visualized great vessels. There is no demonstrated aortic dissection. Mildly enlarged heart and normal pericardium. Normal mediastinum. Normal hilar regions. Normal visualized trachea and bronchi. The lungs are well expanded. Normal pulmonary parenchyma. Normal pleura. Normal chest wall structures. Normal osseous structures. Fatty liver. Surgically absent gallbladder and nondilated extrahepatic biliary system. Normal spleen. Normal pancreas. Normal bilateral adrenal glands. Normal size of the right kidney. There is no right renal mass. There are no right renal calculi. There is no right hydronephrosis. Normal visualized right ureter. Normal size of the left kidney. There is no left renal mass. There are no left renal calculi. There is no left hydronephrosis. Normal visualized left ureter. Normal visualized stomach. Normal small intestine. Uncomplicated diverticulosis of the colon. The appendix is visualized and appears normal. There is no demonstrated peritoneal fluid. Normal abdominal aorta. Normal inferior vena cava. Normal retroperitoneum. Normal urinary bladder. There is no pelvic mass lesion or lymphadenopathy. There is no pelvic fluid. Normal abdominal wall. Unremarkable lower lumbar fusion metallic hardware. IMPRESSION: No demonstrated pulmonary embolism or arterial dissection. Additional chronic findings as above. Radiology Orders: 08/14/18 00:54 CHEST PORTABLE [RAD] Stat 08/14/18 00:55 ANGIOGRAPHY DISECTION PROTOCOL [CT] Stat Drama Professor: Radiologist - Scribe Statement The provider has reviewed the documentation as recorded by the Elodia Epstein Provider Scribe Attestation: All medical record entries made by the Elodia were at my direction and personally dictated by me. I have reviewed the chart and agree that the record accurately reflects my personal performance of the history, physical exam, medical decision making, and the department course for this patient. I have also personally directed, reviewed, and agree with the discharge instructions and disposition. Disposition/Present on Arrival - Present on Arrival Any Indicators Present on Arrival: No History of DVT/PE: No History of Uncontrolled Diabetes: No Urinary Catheter: No History of Decub. Ulcer: No History Surgical Site Infection Following: None - Disposition Have Diagnosis and Disposition been Completed?: Yes Diagnosis: Chest wall pain, GERD (gastroesophageal reflux disease) Disposition: HOME/ ROUTINE Disposition Time: 06:07 Patient Plan: Discharge Condition: STABLE Discharge Instructions (ExitCare): Chest Pain (ED), Acid Reflux (Gastroesophageal Reflux Disease), Adult (DC), Costochondritis (DC) Additional Instructions: return for any new or worsening symptoms. you should get a mammogram and follow up with a breast surgeon if your chest/breast pain continues. you should follow up with a career counselor for the frequent heartburn. Prescriptions: Metoclopramide HCl [Reglan] 10 mg PO QID #30 tablet Omeprazole 20 mg PO DAILY #30 tab.rap. Referrals: Danuta Issa MD [Medical Doctor] - Follow up with primary [facility] [Outside] - Follow up with primary Forms: [employer] ([place] Islander), WORK NOTE
[2018-08-14 01:34] LABS: EOS # 0.1 (0.0-0.7); EOS % 0.5 % (1.5-5.0); LYMPH # 1.5 (1.2-3.4); LYMPH % 12.3 % (22.0-35.0); MEAN CELL VOLUME 90.7 fl (80.0-105.0); MEAN CORPUSCULAR HEMOGLOBIN 30.4 pg (25.0-35.0); MEAN CORPUSCULAR HGB CONC 33.6 g/dl (31.0-37.0); MEAN PLATELET VOLUME 10.2 fl (7.0-11.0); MONO # 0.6 (0.1-0.6); MONO % 4.7 % (1.0-6.0); RBC 4.6 10^6/uL (3.5-6.1); RED CELL DISTRIBUTION WIDTH 14.2 % (11.5-14.5); WHITE BLOOD COUNT 12.2 10^3/uL (4.5-11.0)
[2018-08-14 01:37] LABS: INR 1.07; PARTIAL THROMBOPLASTIN TIME 36.8 Seconds (26.9-38.3); PROTHROMBIN TIME 11.9 SECONDS (9.4-12.5)
[2018-08-14 01:41] LABS: ALB/GLOB RATIO 1.2 (1.1-1.8); ALBUMIN 4.4 g/dL (3.0-4.8); ALT/SGPT 157 U/L (7-56); AST/SGOT 70 U/L (14-36); BLOOD UREA NITROGEN 17 mg/dL (7-21); CALCIUM 9.9 mg/dL (8.4-10.5); GFR NON-AFRICAN AMERICAN > 60
[2018-08-14 01:53] LABS: TROPONIN I < 0.01 ng/mL
[2018-08-14 01:59] VITALS: RESP 18
[2018-08-14 06:20] VITALS: BP 105/68; PULSE 98; TEMP 98.1; O2SAT 98
--- NOTE | 2018-08-14 08:34 | RAD ---
Date of service: 08/14/2018 HISTORY: chest pain COMPARISON: 12/04/2017 TECHNIQUE: 1 view obtained. FINDINGS: LUNGS: No active pulmonary disease. PLEURA: No significant pleural effusion identified, no pneumothorax apparent. CARDIOVASCULAR: No aortic atherosclerotic calcification present. Normal cardiac size. No pulmonary vascular congestion. OSSEOUS STRUCTURES: No significant abnormalities. VISUALIZED UPPER ABDOMEN: Normal. OTHER FINDINGS: None. IMPRESSION: No active disease.
--- NOTE | 2018-08-14 09:07 | CT ---
PROCEDURE: CT Angiography Chest, Abdomen and Pelvis with and without intravenous contrast HISTORY: dissection protocol COMPARISON: None. TECHNIQUE: Contiguous axial images of the chest, abdomen and pelvis were obtained in the phase of aortic enhancement. A noncontrast enhanced CT of the chest was also obtained to evaluate for possible intramural thrombus. Coronal and sagittal reformats were generated. IV dose administered: Radiation dose: Total exam DLP = 1891.51 mGy-cm. This CT exam was performed using one or more of the following dose reduction techniques: Automated exposure control, adjustment of the mA and/or kV according to patient size, and/or use of iterative reconstruction technique. FINDINGS: CT ANGIOGRAPHY OF THE CHEST WITH & WITHOUT CONTRAST: AORTA (CHEST AND ABDOMEN): The thoracic and abdominal aorta are unremarkable, without aneurysm, dissection or rupture. No intramural thrombus identified in the thoracic aorta on the non-contrast ct of the chest. The celiac axis, superior mesenteric artery, inferior mesenteric artery and the renal arteries are widely patent. The pelvic arteries are unremarkable. LUNGS: Clear. No nodule, mass or consolidation. MEDIASTINUM: Unremarkable. Normal caliber aorta and pulmonary arterial trunk. No aortic dissection. Normal size heart. LYMPH NODES: Unremarkable. PLEURA: Unremarkable. No pneumothorax. No pleural fluid. BONES: Unremarkable. OTHER FINDINGS: None. CT ANGIOGRAPHY OF THE ABDOMEN AND PELVIS WITH CONTRAST: LIVER: Unremarkable. No gross lesion or ductal dilatation. Diffuse fatty infiltration of the liver GALLBLADDER AND BILE DUCTS: Gallbladder removed PANCREAS: Unremarkable. No gross lesion or ductal dilatation. SPLEEN: Unremarkable. ADRENALS: Unremarkable. No mass. KIDNEYS AND URETERS: Unremarkable. No hydronephrosis. No solid mass. VASCULATURE: Unremarkable. No aortic aneurysm. No aortic atherosclerotic calcification or mural plaque present. STOMACH AND BOWEL: Unremarkable. No obstruction. No gross mural thickening. APPENDIX: Normal appendix. PERITONEUM: Unremarkable. No free fluid. No free air. LYMPH NODES: Unremarkable. No enlarged lymph nodes. BLADDER: Unremarkable. REPRODUCTIVE: Unremarkable. BONES: No acute fracture. OTHER FINDINGS: The report concurs with the preliminary [facility] report IMPRESSION: No evidence of aortic dissection or pulmonary embolus.
--- NOTE | 2018-08-14 10:39 | CARD ---
APPROVED REPORT Date of service: 08/14/2018 EKG Measurement Heart [id number] <Conclusion> Sinus tachycardia Possible Left atrial enlargement Borderline ECG
== END 2018-08-14 06:19 | disposition home or self-care (01) ==
LOC: ED 23:59
DX: R19.7 Diarrhea, unspecified (principal); K21.9 Gastro-esophageal reflux disease without esophagitis; R07.89 Other chest pain; F17.210 Nicotine dependence, cigarettes, uncomplicated
CPT/HCPCS: 71045; 71275; 74175; 80053; 81025; 84484; 85025; 85610; 85730; 93005; 96374; 96375; 96376; 99283; J2270; J2405; J2765; Q9967

== ENCOUNTER 2018-09-02 13:56 | Emergency (ER) | payer OTHER ==
[2018-09-02 13:57] VITALS: BMI 36.0
[2018-09-02 14:05] VITALS: TEMP 98
--- NOTE | 2018-09-02 14:41 | ED PDOC ---
Arrival/HPI - General Chief Complaint: Abdominal Pain Time Seen by Provider: 09/02/18 14:02 Historian: Patient - History of Present Illness Narrative History of Present Illness (Text): 09/02/18 14:44 A 52 year old female, whose past medical history includes chronic back pain (managed with surgery) and ovarian cancer (in remission), presents to the ED complaining of epigastric abdominal pain for the past 3 weeks. Patient states she was in the ED recently for the same complaints (08/14/18). Patient reports that symptoms have not resolved since then. Patient notes blood in stool 4 days ago but denies any fevers, chills, headache, dizziness, chest pain, shortness of breath, dyspnea on exertion, cough, vomiting, diarrhea, back pain, neck pain, urinary/bowel changes, or any other complaints. Time/Duration: > week Symptom Onset: Gradual Symptom Course: Unchanged Activities at Onset: Light Context: Home Past Medical History - Provider Review Nursing Documentation Reviewed: Yes Primary Care Physician: Catia Murguia MD - Past History Past History: No Previous - Infectious Disease Hx of Infectious Diseases: None - Tetanus Immunization Tetanus Immunization: Unknown - Reproductive Menopause: Yes - Cardiac Hx Cardiac Disorders: No - Pulmonary Hx Respiratory Disorders: Yes Hx Asthma: Yes - Neurological Hx Neurological Disorder: Yes Hx Migraine: Yes - HEENT Hx HEENT Disorder: Yes Other/Comment: Wears glasses - Renal Hx Renal Disorder: Yes Hx Kidney Stones: Yes - Endocrine/Metabolic Hx Endocrine Disorders: No - Hematological/Oncological Hx Blood Disorders: Yes Hx Cancer: Yes (ovarian, radiation pill 2006) - Integumentary Hx Dermatological Disorder: No - Musculoskeletal/Rheumatological Hx Musculoskeletal Disorders: Yes Hx Fractures: Yes - Gastrointestinal Hx Gastrointestinal Disorders: Yes Hx Gastrointestinal Ulcer: Yes - Genitourinary/Gynecological Hx Genitourinary Disorders: Yes Hx Ovarian Cancer: Yes - Psychiatric Hx Psychophysiologic Disorder: No Hx Substance Use: No - Surgical History Hx Appendectomy: Yes Hx Cholecystectomy: Yes - Anesthesia Hx Anesthesia: Yes Hx Anesthesia Reactions: No Hx Malignant Hyperthermia: No - Suicidal Assessment Feels Threatened In Home Enviroment: No Family/Social History - Physician Review Nursing Documentation Reviewed: Yes Family/Social History: Unknown Family HX Smoking Status: Light Smoker < 10 Cigarettes Daily Hx Alcohol Use: Yes Frequency of alcohol use: Socially Hx Substance Use: No Hx Substance Use Treatment: No Allergies/Home Meds Allergies/Adverse Reactions: Allergies penicillin V Allergy (Verified 09/02/18 14:05) RASH Review of Systems - Physician Review All systems were reviewed & negative as marked: Yes - Review of Systems Constitutional: absent: Fevers Eyes: absent: Vision Changes ENT: absent: Hearing Changes Respiratory: absent: Cough Cardiovascular: absent: Chest Pain Gastrointestinal: Abdominal Pain, Nausea. absent: Vomiting Genitourinary Female: absent: Dysuria Musculoskeletal: Back Pain Skin: absent: Rash Neurological: absent: Headache Endocrine: absent: Diaphoresis Hemo/Lymphatic: absent: Adenopathy Psychiatric: absent: Anxiety, Depression Physical Exam Vital Signs Reviewed: Yes Vital Signs Temp Pulse Resp BP Pulse Ox 09/02/18 13:59 98 F 99 H 17 133/94 H 97 Temperature: Afebrile Blood Pressure: Hypertensive Pulse: Regular Respiratory Rate: Normal Appearance: Positive for: Well-Appearing, Non-Toxic, Comfortable Pain Distress: Mild Mental Status: Positive for: Alert and Oriented X 3 - Systems Exam Head: Present: Atraumatic, Normocephalic Pupils: Present: PERRL Extroacular Muscles: Present: EOMI Conjunctiva: Present: Normal Respiratory/Chest: Present: Clear to Auscultation, Good Air Exchange. No: Respiratory Distress, Accessory Muscle Use Cardiovascular: Present: Regular Rate and Rhythm, Normal S1, S2. No: Murmurs Abdomen: Present: Tenderness (Epigastric) Back: Present: Paraspinal Tenderness (Lower back) Neurological: Present: GCS=15, CN II-XII Intact, Speech Normal Skin: Present: Warm, Dry, Normal Color. No: Rashes Psychiatric: Present: Alert, Oriented x 3, Normal Insight, Normal Concentration Medical Decision Making ED Course and Treatment: 09/02/18 14:53 Impression: A 52 year old female who presents to the ED for abdominal pain with associated nausea. Differential Diagnosis included but are not limited to: Gastritis vs Pancreatitis. Plan: -- CT Abdomen/Pelvis -- Labs -- Pepcid -- Toradol -- Zofran -- IV Fluids -- Urinalysis -- Reassess and disposition Prior Visits: Notes and results from previous visits were reviewed. Progress Notes: 09/02/18 17:36 Pateint did not want to take the toradol because she did not like the way it felt. Morphine was ordered. On reevaluation, she continues to have pain. Abdomen soft and tender epigastric with guarding. No rebound. No peritoneal signs. Morphine 4mg IV ordered for further pain control. Patient is refusing a rectal exam. She says she's not bleeding now and that it was one time only she saw some blood. 09/02/18 18:30 Patient continues to have abdominal pain with only moderate improvement. Abdomen is soft, ND. She has tenderness in epigatric area. She is tolerating PO fluids without vomiting. She continues to refuse rectal exam. She was advised to be admitted for GI evaluation and further care. She does not want to stay in the hospital. The patient declines admission, and wishes to leave the Emergency Department. This action is against my medical advice to the patient and the decision was made with informed refusal. The patient was told that admission is necessary and a full explanation of the rationale was given. The risks of leaving were explained to the patient and include, but are not limited to, worsening of known or currently unknown conditions, permanent disability and from undiagnosed or untreated conditions The patient has the capacity to make this informed decision and understands the clinical situation and my explanation of the risks of leaving. The patient voluntarily accepts these risks, and a signed AMA form documenting our conversation was obtained. The patient was given the opportunity to ask questions and reconsider. The patient was encouraged to return to the Emergency Department at any time for further care. - EKG Interpretation EKG Interpretation (Text): 09/03/18 09:50 Reviewed EKG, shows: NSR at 88 BPM. Normal Intervals. No ST elevations. Interpreted by ED Physician: Yes Type: 12 lead EKG Disposition/Present on Arrival - Present on Arrival Any Indicators Present on Arrival: No History of DVT/PE: No History of Uncontrolled Diabetes: No Urinary Catheter: No History of Decub. Ulcer: No History Surgical Site Infection Following: None - Disposition Have Diagnosis and Disposition been Completed?: Yes Diagnosis: Abdominal pain Disposition: AGAINST MEDICAL ADVICE Disposition Time: 18:45 Patient Plan: Discharge Condition: IMPROVED Discharge Instructions (ExitCare): Acute Abdomen (Belly Pain) Additional Instructions: ELIZABETH CHAUDHRY, thank you for letting us take care of you today. Your provider was Abdirahman Verde DO and you were treated for Abdominal Pain. The emergency medical care you received today was directed at your acute symptoms. If you were prescribed any medication, please fill it and take as directed. It may take several days for your symptoms to resolve. Return to the Emergency Department if your symptoms worsen, do not improve, or if you have any other problems. Please contact your doctor or call one of the physicians/clinics you have been referred to that are listed on the Patient Visit Information form that is included in your discharge packet. Bring any paperwork you were given at discharge with you along with any medications you are taking to your follow up visit. Our treatment cannot replace ongoing medical care by a primary care provider outside of the emergency department. Thank you for allowing the [facility] team to be part of your care today. If you had an X-Ray or CT scan: A Radiologist will review the ED reading if any change in treatment is needed we will contact you. If you had a blood, urine, or wound culture: It will take several days for the results, if any change in treatment is needed we will contact you. If you had an STI test: It will take 48 hours for the results. Please call after 1 week if you have not heard back. Prescriptions: Aluminum Hydroxide/Magnesium H [Maalox 30 ml] 30 ml PO Q8 #1 bottle Pantoprazole Sodium [Protonix] 40 mg PO DAILY #20 ect Ranitidine HCl [Zantac] 150 mg PO BID PRN #30 tablet PRN Reason: Pain, Mild (1-3) Referrals: Catia Murguia MD [Primary Care Provider] - Follow up with primary Forms: [employer] (Maltese), WORK NOTE
[2018-09-02 15:15] LABS: URINE BILIRUBIN NEGATIVE (NEGATIVE); URINE BLOOD MODERATE (NEGATIVE); URINE GLUCOSE (UA) NEGATIVE (NEGATIVE); URINE LEUKOCYTE ESTERASE NEGATIVE Leu/uL (NEGATIVE); URINE PROTEIN 30 mg/dL (<30 mg/dL); URINE UROBILINOGEN 0.2 E.U./dL (<1 E.U./dL)
[2018-09-02 15:17] LABS: BASO # 0.01 K/mm3 (0.0-2.0); BASO % 0.1 % (0.0-3.0); EOS # 0.1 (0.0-0.7); EOS % 1.1 % (1.5-5.0); HEMOGLOBIN 13.2 g/dL (12.0-16.0); LYMPH # 3.2 (1.2-3.4); LYMPH % 36.4 % (22.0-35.0); MEAN CELL VOLUME 93.3 fl (80.0-105.0); MEAN CORPUSCULAR HEMOGLOBIN 30.4 pg (25.0-35.0); MEAN CORPUSCULAR HGB CONC 32.6 g/dl (31.0-37.0); MEAN PLATELET VOLUME 10.6 fl (7.0-11.0); MONO # 0.4 (0.1-0.6); MONO % 4.1 % (1.0-6.0); RBC 4.34 10^6/uL (3.5-6.1); RED CELL DISTRIBUTION WIDTH 14.6 % (11.5-14.5); WHITE BLOOD COUNT 8.7 10^3/uL (4.5-11.0)
[2018-09-02 15:19] LABS: URINE APPEARANCE CLEAR (CLEAR); URINE COLOR YELLOW (YELLOW)
[2018-09-02 15:22] LABS: URINE AMORPHOUS SEDIMENT FEW /hpf; URINE BACTERIA MANY /hpf; URINE COARSE GRANULAR CAST TRACE /hpf; URINE RBC 20 - 25 /hpf (0-2)
[2018-09-02 15:31] LABS: ALB/GLOB RATIO 1.2 (1.1-1.8); ALBUMIN 4.3 g/dL (3.0-4.8); ALT/SGPT 182 U/L (7-56); AST/SGOT 90 U/L (14-36); BLOOD UREA NITROGEN 16 mg/dL (7-21); CALCIUM 9.8 mg/dL (8.4-10.5); GFR NON-AFRICAN AMERICAN > 60; LIPASE 73 U/L (23-300)
[2018-09-02] MEDS ORDERED: Iohexol 350 MG/100 ML VIAL ONE (15:48)
[2018-09-02 15:58] VITALS: RESP 18
[2018-09-02] MEDS ORDERED: Morphine 4 mg/ml ISec IVP STA ×2 (16:14→17:35)
--- NOTE | 2018-09-02 16:17 | CT ---
Date of service: 09/02/2018 PROCEDURE: CT Abdomen and Pelvis with contrast HISTORY: upper abd pain COMPARISON: CT scan of the abdomen pelvis dated 10/16/2017. TECHNIQUE: Contrast dose: 100 mL Omnipaque 350 Radiation dose: Total exam DLP = 1164.36 mGy-cm. This CT exam was performed using one or more of the following dose reduction techniques: Automated exposure control, adjustment of the mA and/or kV according to patient size, and/or use of iterative reconstruction technique. FINDINGS: LOWER THORAX: Unremarkable. LIVER: Diffuse hepatic steatosis. No gross lesion or ductal dilatation. GALLBLADDER AND BILE DUCTS: Prior cholecystectomy with surgical clips in place. PANCREAS: Unremarkable. No gross lesion or ductal dilatation. SPLEEN: Unremarkable. ADRENALS: Unremarkable. No mass. KIDNEYS AND URETERS: Unremarkable. No hydronephrosis. No solid mass. VASCULATURE: Unremarkable. No aortic aneurysm. No aortic atherosclerotic calcification or mural plaque present. BOWEL: Unremarkable. No obstruction. No gross mural thickening. APPENDIX: Normal appendix. PERITONEUM: Unremarkable. No free fluid. No free air. LYMPH NODES: Unremarkable. No enlarged lymph nodes. BLADDER: Unremarkable. REPRODUCTIVE: Unremarkable. BONES: Prior L5-S1 fusion. No acute fracture. OTHER FINDINGS: None. IMPRESSION: No acute abdominal pelvic pathology.
[2018-09-02] MEDS ORDERED: Sodium Chloride 0.9% 1,000 ML IV STA (17:37)
[2018-09-02 18:58] VITALS: BP 137/72; PULSE 80; O2SAT 9
--- NOTE | 2018-09-03 09:37 | CARD ---
APPROVED REPORT Date of service: 09/02/2018 EKG Measurement Heart [id number] [place] [id number] <Conclusion> Normal sinus rhythm Possible Anterior infarct, age undetermined Abnormal ECG
== END 2018-09-02 19:04 | disposition left against medical advice (07) ==
LOC: ED 13:56
DX: R10.9 Unspecified abdominal pain (principal); Z85.43 Personal history of malignant neoplasm of ovary; Z87.442 Personal history of urinary calculi
CPT/HCPCS: 74177; 80053; 81001; 81025; 83690; 83735; 85025; 93005; 96361; 96374; 96375; 96376; 99285; J2270; J2405; J7030; Q9967

== ENCOUNTER 2018-09-19 08:59 | Emergency (ER) | payer OTHER ==
[2018-09-19 09:17] VITALS: BMI 39.1
[2018-09-19 09:21] VITALS: RESP 18
--- NOTE | 2018-09-19 09:29 | ED PDOC ---
Arrival/HPI - General Time Seen by Provider: 09/19/18 09:12 Historian: Patient - History of Present Illness Narrative History of Present Illness (Text): 09/19/18 09:22 52 y/o female, pmh including gerd/UTI/asthma/CVA, penicillin allergy, post menopausal, c/o abdominal pain and nausea x 1 day. Pt. stated that she has chronic gerd, been having abdominal pain x 1 day, stated that she has painless rectal bleeding for about 1 week, bright red rectal bleeding was painless and associated with straining during bowel movement but resolved yesterday, here for the abdominal pain, seen by her own pmd and prepared to send her to see the GI but she came to the ER instead. Pt. has scheduled endoscopy and colonoscopy. Pt. stated that the rectal bleeding resolved, only epigastric abdominal pain today, no chest pain or shortness of breath, no dizziness, no numbness or tingling, no vomiting/diarrhea, no fall or trauma, no other medical or psychological complaints. Past Medical History - Provider Review Nursing Documentation Reviewed: Yes - Past History Past History: No Previous - Infectious Disease Hx of Infectious Diseases: None - Tetanus Immunization Tetanus Immunization: Unknown - Cardiac Hx Cardiac Disorders: No - Pulmonary Hx Respiratory Disorders: Yes Hx Asthma: Yes - Neurological Hx Neurological Disorder: Yes Hx Migraine: Yes - HEENT Hx HEENT Disorder: Yes Other/Comment: Wears glasses - Renal Hx Renal Disorder: Yes Hx Kidney Stones: Yes - Endocrine/Metabolic Hx Endocrine Disorders: No - Hematological/Oncological Hx Blood Disorders: Yes Hx Cancer: Yes (ovarian, radiation pill 2006) - Integumentary Hx Dermatological Disorder: No - Musculoskeletal/Rheumatological Hx Musculoskeletal Disorders: Yes Hx Fractures: Yes - Gastrointestinal Hx Gastrointestinal Disorders: Yes Hx Gastrointestinal Ulcer: Yes - Genitourinary/Gynecological Hx Genitourinary Disorders: Yes Hx Ovarian Cancer: Yes - Psychiatric Hx Psychophysiologic Disorder: No Hx Substance Use: No - Surgical History Hx Appendectomy: Yes Hx Cholecystectomy: Yes - Anesthesia Hx Anesthesia: Yes Hx Anesthesia Reactions: No Hx Malignant Hyperthermia: No - Suicidal Assessment Feels Threatened In Home Enviroment: No Family/Social History - Physician Review Nursing Documentation Reviewed: Yes Family/Social History: Unknown Family HX Smoking Status: Light Smoker < 10 Cigarettes Daily Hx Alcohol Use: Yes Hx Substance Use: No Hx Substance Use Treatment: No Allergies/Home Meds Allergies/Adverse Reactions: Allergies penicillin V Allergy (Verified 09/19/18 09:17) RASH Review of Systems - Review of Systems Constitutional: absent: Fatigue, Fevers Eyes: absent: Vision Changes ENT: absent: Hearing Changes Respiratory: absent: SOB, Cough Cardiovascular: absent: Chest Pain Gastrointestinal: Abdominal Pain, Nausea. absent: Diarrhea, Vomiting Genitourinary Female: absent: Dysuria, Frequency Musculoskeletal: absent: Arthralgias Skin: absent: Rash, Pruritis Neurological: absent: Headache, Dizziness Hemo/Lymphatic: absent: Adenopathy, Easy Bleeding Psychiatric: absent: Anxiety, Depression Physical Exam Vital Signs Reviewed: Yes Vital Signs Temp Pulse Resp BP Pulse Ox 09/19/18 09:17 98.3 F 83 18 122/69 99 Temperature: Afebrile Blood Pressure: Normal Pulse: Regular Respiratory Rate: Normal Appearance: Positive for: Well-Appearing, Non-Toxic, Comfortable Pain Distress: Mild Mental Status: Positive for: Alert and Oriented X 3 - Systems Exam Head: Present: Atraumatic, Normocephalic Pupils: Present: PERRL Extroacular Muscles: Present: EOMI Conjunctiva: Present: Normal Mouth: Present: Moist Mucous Membranes Pharnyx: No: ERYTHEMA, EXUDATE, TONSILS ENLARGED Nose (External): Present: Atraumatic. No: Abrasion, Contusion, Laceration, Lesions Nose (Internal): Present: Normal Inspection, No Active Bleeding. No: Edematous, Rhinorrhea, Septal Deviation, Septal Hematoma, Epistaxis Neck: Present: Normal Range of Motion Respiratory/Chest: Present: Clear to Auscultation, Good Air Exchange. No: Respiratory Distress, Accessory Muscle Use Cardiovascular: Present: Regular Rate and Rhythm, Normal S1, S2. No: Murmurs Abdomen: Present: Tenderness (epigastric tenderness), Normal Bowel Sounds. No: Distention, Peritoneal Signs, Rebound, Guarding, McBurney's Point Tender, Rovsing's Sign Present Rectal: Present: Hemorrhoids (external noted), Normal Rectal Tone, Other (Female Edi Analyst INTERNATIONAL ACCOUNT REPRESENTATIVEVIVIAN Mujica, Guaiac is negative). No: Occult Blood, Rectal Tenderness, Gross Blood, Melena, Fissures, Nodule/Mass/Lesions Back: Present: Normal Inspection. No: CVA Tenderness, Midline Tenderness, Paraspinal Tenderness, Pain with Leg Raise, Decubitus Ulcer Upper Extremity: Present: Normal Inspection. No: Cyanosis, Edema Lower Extremity: Present: Normal Inspection. No: Edema Neurological: Present: GCS=15, CN II-XII Intact, Speech Normal, Motor Func Grossly Intact, Normal Cerebellar Funct, Gait Normal, Memory Normal Skin: Present: Warm, Dry, Normal Color. No: Rashes Psychiatric: Present: Alert, Oriented x 3, Normal Insight, Normal Concentration Medical Decision Making ED Course and Treatment: 09/19/18 09:34 Differential: diverticulitis vs. hemorrhoid vs. constipation vs. unlikely GI bleed -Labs -CT abdomen and pelvis -IVF/pepcid/zofran -Observe and reassess 09/19/18 12:21 -Urine hcg is negative -Guaiac is negative -CT abdomen and pelvis Hepatic steatosis. Hepatomegaly. 6 mm right hepatic lobe nonspecific focus of enhancement. Dedicated cross-sectional imaging of the liver suggested for further evaluation if indicated. Cholecystectomy. -Labs are non significant with normal hgb/hct -UA show +UTI -Pt. feels well, tolerating po solid and fluid, labs and radiology result discussed, has GI follow up and referral given by PMD already, advised to continue. -Discharge home with macrobid, pepcid, zofran, follow up with your own pmd and GI within 2 days, return to the ER for any new or worsening signs or symptoms. - RAD Interpretation Radiology Orders: Date of service: 09/19/2018 PROCEDURE: CT Abdomen and Pelvis with contrast HISTORY: abdominal pain/nausea, diverticulitis?constipation COMPARISON: CT of the abdomen and pelvis performed 09/02/18 TECHNIQUE: Contrast dose: 150 mL Omnipaque 350 Radiation dose: Total exam DLP = 1091.25 mGy-cm. This CT exam was performed using one or more of the following dose reduction techniques: Automated exposure control, adjustment of the mA and/or kV according to patient size, and/or use of iterative reconstruction technique. FINDINGS: LOWER THORAX: No visible consolidation, pleural effusion, or pneumothorax. LIVER: Hypoattenuation of the liver compatible with hepatic steatosis. Nonspecific 6 mm focus of enhancement (series 3, image 29). Hepatomegaly. GALLBLADDER AND BILE DUCTS: Cholecystectomy. PANCREAS: Unremarkable. SPLEEN: Unremarkable. ADRENALS: Unremarkable. KIDNEYS AND URETERS: The kidneys enhance symmetrically. No hydronephrosis or obstructing calculus identified. VASCULATURE: No aortic aneurysm. No atherosclerotic calcification or mural plaque present. BOWEL: Stomach is nondistended. Lack of oral contrast limits evaluation for bowel pathology. Bowel loops appear within normal limits of caliber without evidence of obstruction. APPENDIX: The appendix appears within normal limits of caliber. No secondary signs of acute appendicitis. PERITONEUM: No significant free fluid. No definite free air. LYMPH NODES: No bulky adenopathy identified. BLADDER: Unremarkable. REPRODUCTIVE: Unremarkable. BONES: Posterior L5-S1 lumbar fusion. OTHER FINDINGS: None. IMPRESSION: Hepatic steatosis. Hepatomegaly. 6 mm right hepatic lobe nonspecific focus of enhancement. Dedicated cross-sectional imaging of the liver suggested for further evaluation if indicated. Cholecystectomy. Convention Services Manager: Radiologist - PA / LOFT WORKER APPRENTICE / Resident Statement MD/DO has reviewed & agrees with the documentation as recorded. Disposition/Present on Arrival - Present on Arrival Any Indicators Present on Arrival: No History of DVT/PE: No History of Uncontrolled Diabetes: No Urinary Catheter: No History of Decub. Ulcer: No History Surgical Site Infection Following: None - Disposition Have Diagnosis and Disposition been Completed?: Yes Diagnosis: UTI (urinary tract infection), Abdominal pain, Hepatic steatosis, Abnormal CT scan Disposition: HOME/ ROUTINE Disposition Time: 12:22 Patient Plan: Discharge Condition: IMPROVED Additional Instructions: -Discharge home with macrobid, pepcid, zofran, follow up with your own pmd and GI within 2 days, return to the ER for any new or worsening signs or symptoms. Prescriptions: Famotidine [Pepcid] 20 mg PO BID #20 tab Nitrofurantoin Macrocrystals [Macrobid] 100 mg PO BID #20 cap Ondansetron [Zofran] 4 mg PO Q8H PRN #10 tab PRN Reason: Nausea/Vomiting Referrals: Charlie Kaplan MD [Staff Provider] - Follow up with primary [facility] [place] - Follow up with primary Forms: WORK NOTE
[2018-09-19] MEDS ORDERED: Sodium Chloride 0.9% 1,000 ML IV STA (09:47)
[2018-09-19 10:41] LABS: BASO # 0.01 K/mm3 (0.0-2.0); BASO % 0.1 % (0.0-3.0); EOS # 0.2 (0.0-0.7); EOS % 1.9 % (1.5-5.0); HEMOGLOBIN 13.4 g/dL (12.0-16.0); LYMPH # 2.9 (1.2-3.4); LYMPH % 32.3 % (22.0-35.0); MEAN CORPUSCULAR HEMOGLOBIN 29.9 pg (25.0-35.0); MEAN CORPUSCULAR HGB CONC 32.5 g/dl (31.0-37.0); MONO # 0.4 (0.1-0.6); MONO % 3.8 % (1.0-6.0); RBC 4.48 10^6/uL (3.5-6.1); RED CELL DISTRIBUTION WIDTH 14.4 % (11.5-14.5); WHITE BLOOD COUNT 9.1 10^3/uL (4.5-11.0)
[2018-09-19 10:47] LABS: ALB/GLOB RATIO 1.3 (1.1-1.8); ALBUMIN 4.3 g/dL (3.0-4.8); ALT/SGPT 205 U/L (7-56); AST/SGOT 95 U/L (14-36); BLOOD UREA NITROGEN 15 mg/dL (7-21); GFR NON-AFRICAN AMERICAN > 60; LIPASE 71 U/L (23-300)
[2018-09-19 11:38] VITALS: BP 112/71; TEMP 98.2
[2018-09-19] MEDS ORDERED: Morphine 4 mg/ml ISec IVP STA (11:46)
[2018-09-19 12:01] LABS: URINE APPEARANCE CLEAR (CLEAR); URINE BILIRUBIN NEGATIVE (NEGATIVE); URINE BLOOD SMALL (NEGATIVE); URINE COLOR YELLOW (YELLOW); URINE GLUCOSE (UA) NEGATIVE (NEGATIVE); URINE LEUKOCYTE ESTERASE TRACE Leu/uL (NEGATIVE); URINE PROTEIN NEGATIVE mg/dL (<30 mg/dL); URINE UROBILINOGEN 0.2 E.U./dL (<1 E.U./dL)
[2018-09-19 12:18] LABS: URINE AMORPHOUS SEDIMENT FEW /hpf; URINE BACTERIA MANY /hpf
--- NOTE | 2018-09-19 12:18 | CT ---
Date of service: 09/19/2018 PROCEDURE: CT Abdomen and Pelvis with contrast HISTORY: abdominal pain/nausea, diverticulitis?constipation COMPARISON: CT of the abdomen and pelvis performed 09/02/18 TECHNIQUE: Contrast dose: 150 mL Omnipaque 350 Radiation dose: Total exam DLP = 1091.25 mGy-cm. This CT exam was performed using one or more of the following dose reduction techniques: Automated exposure control, adjustment of the mA and/or kV according to patient size, and/or use of iterative reconstruction technique. FINDINGS: LOWER THORAX: No visible consolidation, pleural effusion, or pneumothorax. LIVER: Hypoattenuation of the liver compatible with hepatic steatosis. Nonspecific 6 mm focus of enhancement (series 3, image 29). Hepatomegaly. GALLBLADDER AND BILE DUCTS: Cholecystectomy. PANCREAS: Unremarkable. SPLEEN: Unremarkable. ADRENALS: Unremarkable. KIDNEYS AND URETERS: The kidneys enhance symmetrically. No hydronephrosis or obstructing calculus identified. VASCULATURE: No aortic aneurysm. No atherosclerotic calcification or mural plaque present. BOWEL: Stomach is nondistended. Lack of oral contrast limits evaluation for bowel pathology. Bowel loops appear within normal limits of caliber without evidence of obstruction. APPENDIX: The appendix appears within normal limits of caliber. No secondary signs of acute appendicitis. PERITONEUM: No significant free fluid. No definite free air. LYMPH NODES: No bulky adenopathy identified. BLADDER: Unremarkable. REPRODUCTIVE: Unremarkable. BONES: Posterior L5-S1 lumbar fusion. OTHER FINDINGS: None. IMPRESSION: Hepatic steatosis. Hepatomegaly. 6 mm right hepatic lobe nonspecific focus of enhancement. Dedicated cross-sectional imaging of the liver suggested for further evaluation if indicated. Cholecystectomy.
[2018-09-19 12:31] VITALS: PULSE 88; O2SAT 98
== END 2018-09-19 12:39 | disposition home or self-care (01) ==
LOC: ED 08:59
DX: N39.0 Urinary tract infection, site not specified (principal); K76.0 Fatty (change of) liver, not elsewhere classified; R10.9 Unspecified abdominal pain; R93.5 Abnormal findings on diagnostic imaging of other abdominal regions, including retroperitoneum; K21.9 Gastro-esophageal reflux disease without esophagitis; Z85.43 Personal history of malignant neoplasm of ovary
CPT/HCPCS: 74177; 80053; 81001; 81025; 83690; 83735; 85025; 86850; 86900; 87086; 96374; 96375; 99283; J2270; J2405; J7030; Q9967